=== PATIENT | female | born 1985 | race Caucasian/White ===

== ENCOUNTER 2017-11-05 19:49 | Emergency (ER) | payer MEDICAID, OTHER ==
[2017-11-05] MEDS ORDERED: IBUPROFEN 800 MG TABLET PO ONE (20:38)
[2017-11-05] MEDS ORDERED: HYDROCODONE/ACETAMINOPHEN 5-325 MG (6 TAB/ER DISP) PO PRN (20:42)
--- NOTE | 2017-11-05 20:45 | ER Document Report ---
HPI - HPI Patient complains to provider of: Left knee pain Onset: Last week Onset/Duration: Persistent Quality of pain: Achy Pain Level: 4 Context: Patient presents complaining of left knee pain for the past week that worsened this evening. Patient denies any injury to the knee. Patient denies any fever. Patient states she has had similar episode in the past and when she was diagnosed with low vitamin D. Patient denies any recent illness Associated Symptoms: Other - Left knee pain. denies: Fever Exacerbated by: Movement, Walking Relieved by: Denies Similar symptoms previously: Yes Recently seen / treated by doctor: No - ROS ROS below otherwise negative: Yes Systems Reviewed and Negative: Yes All other systems reviewed and negative - CONSTITUTIONAL Constitutional: DENIES: Fever, Chills - EENT EENT: DENIES: Sore Throat, Ear Pain, Eye problems - NEURO Neurology: DENIES: Headache, Weakness, Vision blurred, Dizzinesss / Vertigo - CARDIOVASCULAR Cardiovascular: DENIES: Chest pain - RESPIRATORY Respiratory: DENIES: Trouble Breathing, Coughing - GASTROINTESTINAL Gastrointestinal: DENIES: Abdominal Pain, Black / Bloody Stools - URINARY Urinary: DENIES: Dysuria, Urgency, Frequency - MUSCULOSKELETAL Musculoskeletal: REPORTS: Extremity pain - left knee. DENIES: Back Pain, Neck Pain - DERM Skin Color: Normal Skin Problems: None Past Medical History - General Information source: Patient - Social History Smoking Status: Never Smoker Frequency of alcohol use: None Drug Abuse: None Occupation: D[facility] [employer] Family History: Reviewed & Not Pertinent Patient has suicidal ideation: No Patient has homicidal ideation: No Renal/ Medical History: Denies: Hx Peritoneal Dialysis GI Medical History: Reports: Hx Crohn's Disease Past Surgical History: Reports: Hx Adenoidectomy, Hx Tonsillectomy Vertical Provider Document - CONSTITUTIONAL Agree With Documented VS: Yes Exam Limitations: No Limitations General Appearance: WD/WN, No Apparent Distress - INFECTION CONTROL TRAVEL OUTSIDE OF THE [place] IN LAST 30 DAYS: No - HEENT HEENT: Atraumatic, Normocephalic - NECK Neck: Normal Inspection, Supple - RESPIRATORY Respiratory: Breath Sounds Normal, No Respiratory Distress - CARDIOVASCULAR Cardiovascular: Regular Rate, Regular Rhythm, No Murmur Pulses: Normal: Dorsalis pedis - MUSCULOSKELETAL/EXTREMETIES Musculoskeletal/Extremeties: MAEW, FROM, Tender - Left knee joint tenderness to lateral and medial inferior compartment, no effusion, normal skin color and temperature. Patellar tendon intact. No laxity with varus or valgus maneuvers. - NEURO Level of Consciousness: Awake, Alert, Appropriate Motor/Sensory: No Motor Deficit - DERM Integumentary: Warm, Dry Course - Re-evaluation Re-evalutation: 11/05/17 20:43 Patient with left knee joint tenderness without trauma. Patient states she has had something similar in the past when she was told that she had a vitamin D deficiency. Patient does take Humira in presents without any findings concerning for infection at this time. Patient encouraged to follow-up with her primary doctor for further evaluation. Consulted with Dr. Allen who agrees with this plan of care. - Vital Signs Vital signs: Temp Pulse Resp BP Pulse Ox 97.7 F 89 20 129/79 H 100 11/05/17 19:55 11/05/17 19:55 11/05/17 19:55 11/05/17 19:55 11/05/17 19:55 Procedures - Immobilization Left Knee Pre-Proc Neuro Vasc Exam: Normal Immobilizer type: Matheus wrap Performed by: PCT Post-Proc Neuro Vasc Exam: Normal Alignment checked and good: Yes Discharge - Discharge Clinical Impression: Left knee pain Qualifiers: Chronicity: unspecified Qualified Code(s): M25.562 - Pain in left knee Condition: Stable Disposition: HOME, SELF-CARE Instructions: Matheus Wrap ([facility]), Anti-Inflammatory Medication ([facility]), Arthritis ( [facility]), Use of Crutches ([facility]), Oral Narcotic Medication ([facility]) Additional Instructions: Return immediately for any new or worsening symptoms Followup with your primary care provider, call tomorrow to make a followup appointment Weightbearing as tolerated Follow-up with orthopedic doctor for any continued pain or problems Prescriptions: Hydrocodone/Acetaminophen [[place] 5-325 Tablet] 1 each PO Q6 PRN #10 tablet PRN Reason: Naproxen [Naprosyn 250 Nmg Tablet] 1 tab PO BID #14 tablet Referrals: [facility] [Provider Group] - Follow up as needed [facility] [Provider Group] - Follow up as needed
[2017-11-05] MEDS ORDERED: KETOROLAC TROMETHAMINE 60 MG/2 ML SDV IM ONE (21:01)
[2017-11-05 21:36] VITALS: BP 112/73
== END 2017-11-05 21:36 | disposition home or self-care (01) ==
LOC: ER 19:49
DX: M25.562 Pain in left knee (principal); K50.90 Crohn's disease, unspecified, without complications; Z79.899 Other long term (current) drug therapy
CPT/HCPCS: 99283; 96372; J1885

== ENCOUNTER 2017-11-25 | Emergency (ER) | payer OTHER ==
--- NOTE | 2017-11-26 02:50 | ER Document Report ---
Doctor's Note Notes: 11/26/17 02:49 I did not see or provide care to this patient. She left without being seen by provider before I could get back to the room to assess her.
== END 2017-11-25 21:49 | disposition left against medical advice (07) ==
DX: Z53.21 Procedure and treatment not carried out due to patient leaving prior to being seen by health care provider (principal)

== ENCOUNTER 2017-12-01 19:08 | Emergency (ER) | payer OTHER ==
--- NOTE | 2017-12-01 20:34 | ER Document Report ---
ED Medical Screen (RME) - General Chief Complaint: Abdominal Pain Stated Complaint: ABDOMINAL PAIN Time Seen by Provider: 12/01/17 20:21 Notes: RAPID MEDICAL EVALUATION DISCLOSURE I have seen this patient as part of a Rapid Medical Evaluation and, if applicable, placed any initially appropriate orders. The patient will be seen and fully evaluated, including a full history and physical exam, by a provider ( in Main ED or Fast Track) when a room becomes available. 32-year-old female PMH Crohn's disease on Humira and approximately 6 weeks gestation here with complaints of lower abdominal cramping nausea vomiting diarrhea that started just prior to arrival after eating some Sub sandwiches and eating and oatmeal cookie. She received 4 mg Zofran by EMS and feels better. The cramping is much better now than it was initially. She has not yet had an ultrasound confirmation of . EXAM No appreciable abdominal tenderness TRAVEL OUTSIDE OF THE [place] IN LAST 30 DAYS: No - Related Data Allergies/Adverse Reactions: buspirone [Buspirone] Allergy (Verified 05/28/16 10:56) citalopram hydrobromide [From Celexa] Allergy (Verified 05/28/16 10:56) latex Allergy (Verified 05/28/16 10:56) Past Medical History - Social History Frequency of alcohol use: None Renal/ Medical History: Denies: Hx Peritoneal Dialysis GI Medical History: Reports: Hx Crohn's Disease Past Surgical History: Reports: Hx Adenoidectomy, Hx Tonsillectomy Physical Exam - Vital signs Vitals: Temp Pulse Resp BP Pulse Ox 97.6 F 94 20 133/82 H 100 12/01/17 19:22 12/01/17 19:22 12/01/17 19:22 12/01/17 19:12/01/17 19:22 Course - Vital Signs Vital signs: Temp Pulse Resp BP Pulse Ox 97.6 F 94 20 133/82 H 100 12/01/17 19:22 12/01/17 19:22 12/01/17 19:22 12/01/17 19:22 12/01/17 19:22
[2017-12-01 21:08] LABS: ABSOLUTE LYMPHOCYTES (AUTO) 2.4 10^3/uL (0.5-4.7); ABSOLUTE MONOCYTES (AUTO) 0.6 10^3/uL (0.1-1.4); ABSOLUTE NEUT (AUTO) 5.9 10^3/uL (1.7-8.2); BASOPHILS % (AUTO) 0.4 % (0-2); EOSINOPHILS % (AUTO) 0.5 % (0-6); HEMATOCRIT 36.9 % (36.0-47.0); LYMPHOCYTES % (AUTO) 26.7 % (13-45); MEAN CORPUSCULAR HGB CONC 32.5 g/dL (32.0-36.0); MEAN CORPUSCULAR VOLUME 83 fl (80-97); MONOCYTES % (AUTO) 6.5 % (3-13); PLATELET COUNT 353 10^3/uL (150-450); RED BLOOD COUNT 4.45 10^6/uL (3.72-5.28); RED CELL DISTRIBUTION WIDTH 15.7 % (11.5-14.0); SEGMENTED NEUTROPHILS % (AUTO) 65.9 % (42-78); TOTAL CELLS COUNTED % (AUTO) 100 %; WHITE BLOOD COUNT 8.9 10^3/uL (4.0-10.5)
[2017-12-01 21:21] LABS: ALANINE AMINOTRANSFERASE 110 U/L (9-52); ALBUMIN 4.4 g/dL (3.5-5.0); ALKALINE PHOSPHATASE 94 U/L (38-126); ANION GAP 13 (5-19); ASPARTATE AMINO TRANSFERASE 80 U/L (14-36); BILIRUBIN,DIRECT 0.2 mg/dL (0.0-0.4); BILIRUBIN,TOTAL 0.2 mg/dL (0.2-1.3); BLOOD UREA NITROGEN 10 mg/dL (7-20); CALCIUM 9.8 mg/dL (8.4-10.2); CARBON DIOXIDE 24 mmol/L (22-30); CHLORIDE 105 mmol/L (98-107); GLUCOSE 147 mg/dL (75-110); LIPASE 144.8 U/L (23-300); SODIUM 142.4 mmol/L (137-145); TOTAL PROTEIN 7.6 g/dL (6.3-8.2)
--- NOTE | 2017-12-01 22:11 | RADIOLOGY REPORT (SQ) ---
EXAM DESCRIPTION: U/S OB TRANSVAGINAL W/O DOP COMPLETED DATE/TIME: 12/01/2017 9:53 pm REASON FOR STUDY: lower abd pain n/v, 6 wk preg COMPARISON: None. TECHNIQUE: Transvaginal static and realtime grayscale images acquired of the pelvis. Additional dalila cted spectral and color Doppler images recorded. All images stored on PACs. bHC,112 LIMITATIONS: Patient terminated study. FINDINGS: UTERUS: No masses. No anomalies. GESTATIONAL SAC: There are apparently 2 gestational sacs present. Sacsa: 5 weeks 2 days. Sac B: 5 weeks 3 days. Possibly bicornuate uterus. YOLK SAC: No POLE: No RIGHT ADNEXA: Ovary not identified. No adnexal free fluid. 2.2 cm presumed right ovarian cyst. LEFT ADNEXA: Ovary not identified. No adnexal free fluid. No adnexal masses. FREE FLUID: None. OTHER: No other significant finding. 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 Limited study as patient terminated it. BHCG LEVEL APPROPRIATE FOR ENDOMETRIAL FINDINGS. Consider follow-up ultrasound for further clarification. Right ovarian cysts. Trimester of : First - 0 to 13 weeks. TECHNICAL DOCUMENTATION: JOB ID: [id number] [employer]- All Rights Reserved Reading location - IP/workstation name: [email or web address]
[2017-12-01] MEDS ORDERED: NORMAL SALINE 1000 ML 1,000 ML IV ONE (22:14)
--- NOTE | 2017-12-01 23:22 | ER Document Report ---
ED General - General Chief Complaint: Abdominal Pain Stated Complaint: ABDOMINAL PAIN Time Seen by Provider: 12/01/17 20:21 Notes: Patient is a 32-year-old female presents with complaints of some cramping in lower abdomen. She says this occurred after eating. She got nauseous. She is concerned she has a history of Crohn's will make sure that the abdominal cramping was related to that. She said this is actually improved and her nausea is gone of Zofran. She denies any vomiting of blood. She denies any bloody stools. She is on Humira for her Crohn's. She has not yet had an ultrasound since becoming . She is approximately 5 weeks . This is her second . Her first ended in a stillborn miscarriage at 38 weeks. He says she has had a small amount of whitish vaginal discharge. No vaginal bleeding. TRAVEL OUTSIDE OF THE [place] IN LAST 30 DAYS: No - Related Data Allergies/Adverse Reactions: buspirone [Buspirone] Allergy (Verified 05/28/16 10:56) citalopram hydrobromide [From Celexa] Allergy (Verified 05/28/16 10:56) latex Allergy (Verified 05/28/16 10:56) Past Medical History - Social History Smoking Status: Never Smoker Frequency of alcohol use: None Drug Abuse: None Family History: Reviewed & Not Pertinent Patient has suicidal ideation: No Patient has homicidal ideation: No Renal/ Medical History: Denies: Hx Peritoneal Dialysis GI Medical History: Reports: Hx Crohn's Disease Past Surgical History: Reports: Hx Adenoidectomy, Hx Tonsillectomy Review of Systems - Review of Systems Notes: My Normal Review Basic REVIEW OF SYSTEMS: CONSTITUTIONAL : Denies fever, chills, or sweats. Denies recent illness. EENT: Denies eye, ear, throat, or mouth pain or symptoms. Denies nasal or sinus congestion. RESPIRATORY: Denies cough, cold, or chest congestion. Denies shortness of breath, difficulty breathing, or wheezing. GASTROINTESTINAL: Lower abdomen and pelvic cramping. Nausea vomiting GENITOURINARY: Denies difficulty urinating, painful urination, burning, frequency, or blood in urine. FEMALE GENITOURINARY: Denies vaginal bleeding, abnormal or irregular periods. LMP: Currently MUSCULOSKELETAL: Denies neck or back pain or joint pain or swelling. SKIN: Denies rash or skin lesions. NEUROLOGICAL: Denies altered mental status or loss of consciousness. Denies headache. Denies weakness or paralysis or loss of use of either side. Denies problems with gait or speech. Denies sensory or motor loss. ALL OTHER SYSTEMS REVIEWED AND NEGATIVE. Physical Exam - Vital signs Vitals: Temp Pulse Resp BP Pulse Ox 97.6 F 94 20 133/82 H 100 12/01/17 19:22 12/01/17 19:22 12/01/17 19:22 12/01/17 19:22 12/01/17 19:22 - Notes Notes: General Appearance: Well nourished, alert, cooperative, no acute distress, no obvious discomfort. Well-appearing. Vitals: reviewed, See vital signs table. Head: no swelling or tenderness to the head Eyes: PERRL, EOMI, Conjuctiva clear Mouth: No decreasd moisture Neck: Supple, no neck tenderness, No thyromegaly Lungs: No wheezing, No rales, No rhonci, No accessory muscle use, good air exchange bilaterally. Heart: Normal rate, Regular rythm, No murmur, no rub Abdomen: Normal BS, soft, No rigidity, mild suprapubic abdominal tenderness to palpation, No guarding, no rebound, no abdominal masses, no organomegaly Pelvic exam: Pelvic exam was performed with female wildland fire fighter specialist Gail CRUZ. Exam showed normal external genitalia. No abnormal vaginal discharge. Blood in vaginal vault. Cervical office is closed. Extremities: strength 5/5 in all extremities, good pulses in all extremities, no swelling or tenderness in the extremities, no edema. Skin: warm, dry, appropriate color, no rash Neuro: speech clear, oriented x 3, normal affect, responds appropriately to questions. Course - Re-evaluation Re-evalutation: 12/02/17 00:00 Patient is feeling much improved. I do not suspect that her symptoms today are related to Crohn's flare being that she did not have recurrent diarrhea, her nausea is well controlled, and she does not have any blood in her stool. She looks and feels much improved. She did undergo an ultrasound which showed 2 gestational sacs. 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 I did review these findings with the patient. Informed patient that we do not yet see feel pulse and the patient does have repeat ultrasound on Tuesday. At that time this will be rechecked. Her hCG level is increasing. There is a last week it was just over 2000 per her report. Do not see evidence of pelvic infection. Urinalysis is negative. I did talk to the patient about nausea medications. She does have likely just at home. She does also want Zofran. I did discuss with her the risks and benefits Zofran did discuss with her the study that showed that it could be iatrogenic if given in the first trimester and talked her about this. Patient shows understanding of this and understands it is one study that shows this but still would like a prescription for it in case the Baldo does not taking care of her nausea. Patient will be discharged home was encouraged to return to immediately if she has any vaginal bleeding, abnormal vaginal discharge, recurrent pain, intractable vomiting, fevers, or worsening abdominal pain, or she feels unwell. Patient agrees with plan will be discharged home. Dictation of this chart was performed using voice recognition software; therefore, there may be some unintended grammatical errors. - Vital Signs Vital signs: Temp Pulse Resp BP Pulse Ox 97.6 F 94 20 118/76 94 12/01/17 19:22 12/01/17 19:22 12/01/17 19:22 12/01/17 22:01 12/01/17 22:01 - Laboratory Result Diagrams: 12/01/17 18:45 12/01/17 18:45 Laboratory results interpreted by me: 12/01/17 12/01/17 12/01/17 18:45 18:45 23:18 RDW 15.7 H Glucose 147 H AST 80 H ALT 110 H Beta HCG, Quant 18484.00 H Urine Ketones 20 H Urine Urobilinogen 2.0 H Discharge - Discharge Clinical Impression: Nausea Abdominal pain Qualifiers: Abdominal location: unspecified location Qualified Code(s): R10.9 - Unspecified abdominal pain Condition: Good Disposition: HOME, SELF-CARE Additional Instructions: Your ultrasound shows that you possibly have twins. He also have a bicornuate uterus. Please follow-up with your OB doctor on Tuesday as scheduled for reevaluation and your ultrasound. Please return to the ER immediately if you have recurrent vomiting, vaginal bleeding, worsening abdominal pain, feves, or if you feel unwell. Prescriptions: Ondansetron [Zofran Odt 4 mg Tablet] 1 tab PO Q4H PRN #15 tab.rapdis PRN Reason: For Nausea/Vomiting
[2017-12-01 23:37] LABS: T.VAGINALIS (WET MOUNT) NO TRICHOMONAS SEEN; WBCS (WET MOUNT) RARE WBCS SEEN; YEAST (WET MOUNT) NO YEAST SEEN
[2017-12-01 23:46] LABS: APPEARANCE,URINE CLEAR; BILIRUBIN,URINE NEGATIVE (NEGATIVE); COLOR,URINE YELLOW; GLUCOSE, URINE NEGATIVE (NEGATIVE); KETONES,URINE 20 mg/dL (NEGATIVE); LEUKOCYTE ESTERASE,URINE NEGATIVE (NEGATIVE); NITRITE,URINE NEGATIVE (NEGATIVE); PROTEIN,URINE NEGATIVE (NEGATIVE); URINE SPECIFIC GRAVITY 1.021
[2017-12-02 00:24] VITALS: BP 123/82
[2017-12-02 01:00] LABS: CHLAM PCR NOT DETECTED (NOT DETECT); GON PCR NOT DETECTED (NOT DETECT)
== END 2017-12-02 00:24 | disposition home or self-care (01) ==
LOC: ER 19:08
DX: O99.619 Diseases of the digestive system complicating pregnancy, unspecified trimester (principal); K50.90 Crohn's disease, unspecified, without complications; Z79.899 Other long term (current) drug therapy; O26.899 Other specified pregnancy related conditions, unspecified trimester; R10.2 Pelvic and perineal pain; R11.0 Nausea; O34.00 Maternal care for unspecified congenital malformation of uterus, unspecified trimester; Q51.3 Bicornate uterus; Z3A.00 Weeks of gestation of pregnancy not specified; Z87.59 Personal history of other complications of pregnancy, childbirth and the puerperium; Z88.8 Allergy status to other drugs, medicaments and biological substances; Z91.040 Latex allergy status
CPT/HCPCS: 99284; 96360; 86900; 86901; 36415; 87210; 84702; 83690; 85025; 80053; 81001; 87491; 87591; 76817; J7030

== ENCOUNTER 2017-12-12 20:54 | Emergency (ER) | payer OTHER, MEDICAID ==
[2017-12-12] MEDS ORDERED: RINGERS SOLUTION,LACTATED 1,000 ML IV ONE (21:26)
[2017-12-12] MEDS ORDERED: ONDANSETRON HCL INJ/PF 4 MG/2 ML SDV IV ONE (21:26)
[2017-12-12] MEDS ORDERED: METOCLOPRAMIDE HCL INJ/PF 10 MG/2 ML SDV IV ONE (22:01)
[2017-12-12 22:10] LABS: ABSOLUTE BASOPHILS # (AUTO) 0.1 10^3/uL (0.0-0.2); ABSOLUTE LYMPHOCYTES (AUTO) 2.8 10^3/uL (0.5-4.7); ABSOLUTE MONOCYTES (AUTO) 0.8 10^3/uL (0.1-1.4); ABSOLUTE NEUT (AUTO) 7.3 10^3/uL (1.7-8.2); BASOPHILS % (AUTO) 0.9 % (0-2); EOSINOPHILS % (AUTO) 0.4 % (0-6); HEMOGLOBIN 12.9 g/dL (12.0-15.5); MEAN CORPUSCULAR HEMOGLOBIN 27.4 pg (27.0-33.4); MEAN CORPUSCULAR HGB CONC 32.9 g/dL (32.0-36.0); MEAN CORPUSCULAR VOLUME 83 fl (80-97); MONOCYTES % (AUTO) 7.6 % (3-13); PLATELET COUNT 399 10^3/uL (150-450); RED BLOOD COUNT 4.69 10^6/uL (3.72-5.28); SEGMENTED NEUTROPHILS % (AUTO) 66.1 % (42-78); TOTAL CELLS COUNTED % (AUTO) 100 %
[2017-12-12 22:28] LABS: ALANINE AMINOTRANSFERASE 72 U/L (9-52); ALBUMIN 4.7 g/dL (3.5-5.0); ALKALINE PHOSPHATASE 111 U/L (38-126); ANION GAP 13 (5-19); ASPARTATE AMINO TRANSFERASE 54 U/L (14-36); BILIRUBIN,DIRECT 0.4 mg/dL (0.0-0.4); BILIRUBIN,TOTAL 0.4 mg/dL (0.2-1.3); BLOOD UREA NITROGEN 11 mg/dL (7-20); CALCIUM 10.3 mg/dL (8.4-10.2); CARBON DIOXIDE 24 mmol/L (22-30); CHLORIDE 103 mmol/L (98-107); GLUCOSE 78 mg/dL (75-110); LIPASE 127.4 U/L (23-300); POTASSIUM 4.2 mmol/L (3.6-5.0); SODIUM 139.8 mmol/L (137-145)
--- NOTE | 2017-12-12 22:55 | ER Document Report ---
ED General - General Chief Complaint: Nausea/Vomiting Stated Complaint: VOMITING/NAUSEA Time Seen by Provider: 12/12/17 21:24 Notes: Currently 7 weeks with twin who presents with persistent vomiting and inability to tolerate fluids. The patient states that she is worried she is getting dehydrated. She states that the symptoms been ongoing for the past 1 week. Nothing seems to improve or worsen her symptoms. She denies a history of similar symptoms. She has established care for this and has confirmed intrauterine twin on an outpatient ultrasound. She denies any vaginal bleeding, vaginal discharge, abdominal pain , shortness of breath, chest pain or fever. She has not discussed her persistent vomiting with her PHOTO MASK PATTERN GENERATOR. TRAVEL OUTSIDE OF THE [place] IN LAST 30 DAYS: No - Related Data Allergies/Adverse Reactions: buspirone [Buspirone] Allergy (Verified 05/28/16 10:56) citalopram hydrobromide [From Celexa] Allergy (Verified 05/28/16 10:56) latex Allergy (Verified 05/28/16 10:56) Past Medical History - General Information source: Patient - Social History Smoking Status: Never Smoker Chew tobacco use (# tins/day): No Frequency of alcohol use: None Drug Abuse: None Lives with: Spouse/Significant other Family History: Reviewed & Not Pertinent Patient has suicidal ideation: No Patient has homicidal ideation: No Renal/ Medical History: Denies: Hx Peritoneal Dialysis GI Medical History: Reports: Hx Crohn's Disease Past Surgical History: Reports: Hx Adenoidectomy, Hx Tonsillectomy Review of Systems - Review of Systems Notes: Constitutional: Negative for fever. HENT: Negative for sore throat. Eyes: Negative for visual changes. Cardiovascular: Negative for chest pain. Respiratory: Negative for shortness of breath. Gastrointestinal: Positive for nausea and vomiting Genitourinary: Negative for dysuria. Musculoskeletal: Negative for back pain. Skin: Negative for rash. Neurological: Negative for headaches, weakness or numbness. 10 point ROS negative except as marked above and in HPI. Physical Exam - Vital signs Vitals: Temp Pulse Resp BP Pulse Ox 97.9 F 93 20 121/73 100 12/12/17 21:21 12/12/17 21:21 12/12/17 21:21 12/12/17 21:21 12/12/17 21:21 Interpretation: Normal Notes: PHYSICAL EXAMINATION: GENERAL: Well-appearing, well-nourished and in no acute distress. HEAD: Atraumatic, normocephalic. EYES: Pupils equal round and reactive to light, extraocular movements intact, sclera anicteric, conjunctiva are normal. ENT: nares patent, oropharynx clear without exudates. Moderately dry mucous membranes. NECK: Normal range of motion, supple without lymphadenopathy LUNGS: Breath sounds clear to auscultation bilaterally and equal. No wheezes rales or rhonchi. HEART: Regular rate and rhythm without murmurs ABDOMEN: Soft, nontender, normoactive bowel sounds. No guarding, no rebound. No masses appreciated. EXTREMITIES: Normal range of motion, no pitting or edema. No cyanosis. NEUROLOGICAL: No focal neurological deficits. Moves all extremities spontaneously and on command. PSYCH: Normal mood, normal affect. SKIN: Warm, Dry, normal turgor, no rashes or lesions noted. Course - Re-evaluation Re-evalutation: 12/12/17 22:55 Patient presents with persistent vomiting during . Vitals at time of arrival unremarkable without tachycardia or hypotension. Laboratories reveal a normal creatinine and no evidence of significant dehydration. Patient was able to tolerate oral intake here in the emergency department. IV fluids were provided. Bedside ultrasound shows appropriate heart rate for gestational age with active movement. No vaginal bleeding or discharge. Based on abdominal exam, vitals and history I do not suspect an acute appendicitis, cholestasis of , acute cholecystitis, pancreatitis, or bowel obstruction. Patient will be started on a combination of doxylamine and vitamin B6. At this time will discharge with return precautions and follow-up recommendations. Verbal discharge instructions given a the bedside and opportunity for questions given. Medication warnings reviewed. Patient is in agreement with this plan and has verbalized understanding of return precautions and the need for primary care follow-up in the next 24-72 hours. - Vital Signs Vital signs: Temp Pulse Resp BP Pulse Ox 98.2 F 93 15 110/71 100 12/12/17 23:01 12/12/17 21:21 12/12/17 23:01 12/12/17 23:00 12/12/17 23:01 - Laboratory Result Diagrams: 12/12/17 21:50 12/12/17 21:50 Laboratory results interpreted by me: 12/12/17 12/12/17 21:50 21:50 WBC 11.0 H RDW 15.0 H Calcium 10.3 H AST 54 H ALT 72 H Beta HCG, Quant 615917.00 H Discharge - Discharge Clinical Impression: Vomiting during , Dehydration Condition: Good Disposition: HOME, SELF-CARE Additional Instructions: You have been seen for vomiting during . You should continue to drink plenty of water and consider taking a solution such as Pedialyte if your having difficulty eating food. Please return if you become unable to drink any fluids for more than 12 hours, urinate less than twice a day, pass out, or have any other symptoms that are concerning to you. For nausea and vomiting during I recommend: Start with 10-12.5 mg of pyridoxine (vitamin B6) three times a day for 2 days. If not fully effective, Increase to 12.5 mg of pyridoxine four times a day for 2 days. If not fully effective, Increase to 25 mg of pyridoxine three times a day for 2 days. If not fully effective, Continue 25 mg pyridoxine 3 times a day, and add 12.5 mg of doxylamine before bedtime each day for 2 days. If not fully effective, Continue 25 mg pyridoxine 3 times a day, and take 12.5 mg of doxylamine twice a day. If not fully effective, Continue 25 mg pyridoxine 3 times a day, and take 12.5 mg of doxylamine three times a day. If not fully effective, Continue 25 mg pyridoxine 3 times a day, and 12.5 mg of doxylamine 3 times a day , while adding Emetrol, one to two tablespoons (15-30 cc) taken once or twice a day as needed. (Emetrol is an [id number] mixture of sugar syrups and phosphoric acid [phosphorylated carbohydrate solution]) that acts by soothing the actual wall of the gastrointestinal tract). If not fully effective, Consult with your doctor. Referrals: LYNDA VEGA MD [Primary Care Provider] - Follow up as needed
[2017-12-13 02:00] VITALS: BP 110/71
== END 2017-12-12 23:10 | disposition home or self-care (01) ==
LOC: ER 20:54
DX: O21.9 Vomiting of pregnancy, unspecified (principal); O30.001 Twin pregnancy, unspecified number of placenta and unspecified number of amniotic sacs, first trimester; O26.891 Other specified pregnancy related conditions, first trimester; E86.0 Dehydration; Z3A.01 Less than 8 weeks gestation of pregnancy
CPT/HCPCS: 99284; 96361; 96374; 36415; 84702; 83690; 85025; 80053; J2765; J7120

== ENCOUNTER 2017-12-19 11:31 | Emergency (ER) | payer OTHER, MEDICAID ==
[2017-12-19] MEDS ORDERED: ONDANSETRON 4 MG TAB.RAPDIS PO ONE (12:12)
[2017-12-19] MEDS ORDERED: NORMAL SALINE 1000 ML 1,000 ML IV ONE (12:20)
--- NOTE | 2017-12-19 12:20 | ER Document Report ---
ED Medical Screen (RME) - General Chief Complaint: Abdominal Cramping Stated Complaint: LOWER ABDOMINAL CRAMPING Time Seen by Provider: 12/19/17 12:11 Mode of Arrival: Ambulatory Information source: Patient Notes: Pt is a 32 year old female approximately 8 weeks with twins who presents to the ER today for abd cramping into her back and lower abd with nausea/vomiting. She states she's lightheaded and hasn't been able to keep anything down. Is taking phenergan. TRAVEL OUTSIDE OF THE [place] IN LAST 30 DAYS: No - Related Data Allergies/Adverse Reactions: buspirone [Buspirone] Allergy (Verified 12/19/17 11:33) citalopram hydrobromide [From Celexa] Allergy (Verified 12/19/17 11:33) latex Allergy (Verified 12/19/17 11:33) metoclopramide [From Reglan] Adverse Reaction (Verified 12/19/17 11:33) Past Medical History - General Information source: Patient Renal/ Medical History: Denies: Hx Peritoneal Dialysis GI Medical History: Reports: Hx Crohn's Disease Past Surgical History: Reports: Hx Adenoidectomy, Hx Tonsillectomy Review of Systems - Review of Systems Gastrointestinal: See HPI Physical Exam - Vital signs Vitals: Temp Pulse Resp BP Pulse Ox 97.9 F 90 20 122/71 100 12/19/17 11:39 12/19/17 11:39 12/19/17 11:39 12/19/17 11:39 12/19/17 11:39 - Notes Notes: General: NAD Abd: mild diffuse tenderness to lower abdomen Course - Vital Signs Vital signs: Temp Pulse Resp BP Pulse Ox 97.9 F 90 20 122/71 100 12/19/17 11:39 12/19/17 11:39 12/19/17 11:39 12/19/17 11:39 12/19/17 11:39 Doctor's Discharge - Discharge Referrals: LYNDA VEGA MD [Primary Care Provider] - Follow up as needed
[2017-12-19 14:41] LABS: ABSOLUTE BASOPHILS # (AUTO) 0.1 10^3/uL (0.0-0.2); ABSOLUTE LYMPHOCYTES (AUTO) 2.5 10^3/uL (0.5-4.7); ABSOLUTE MONOCYTES (AUTO) 0.7 10^3/uL (0.1-1.4); ABSOLUTE NEUT (AUTO) 7.6 10^3/uL (1.7-8.2); BASOPHILS % (AUTO) 0.7 % (0-2); EOSINOPHILS % (AUTO) 0.4 % (0-6); HEMATOCRIT 38.8 % (36.0-47.0); LYMPHOCYTES % (AUTO) 22.7 % (13-45); MEAN CORPUSCULAR HEMOGLOBIN 27.7 pg (27.0-33.4); MEAN CORPUSCULAR HGB CONC 33.5 g/dL (32.0-36.0); MEAN CORPUSCULAR VOLUME 83 fl (80-97); MONOCYTES % (AUTO) 6.6 % (3-13); PLATELET COUNT 394 10^3/uL (150-450); RED CELL DISTRIBUTION WIDTH 14.6 % (11.5-14.0); SEGMENTED NEUTROPHILS % (AUTO) 69.6 % (42-78); TOTAL CELLS COUNTED % (AUTO) 100 %; WHITE BLOOD COUNT 10.9 10^3/uL (4.0-10.5)
[2017-12-19 14:53] LABS: APPEARANCE,URINE CLOUDY; BILIRUBIN,URINE NEGATIVE (NEGATIVE); COLOR,URINE YELLOW; GLUCOSE, URINE NEGATIVE (NEGATIVE); KETONES,URINE NEGATIVE (NEGATIVE); LEUKOCYTE ESTERASE,URINE MODERATE (NEGATIVE); NITRITE,URINE NEGATIVE (NEGATIVE); PROTEIN,URINE NEGATIVE (NEGATIVE); URINE SPECIFIC GRAVITY 1.023; UROBILINOGEN,URINE NEGATIVE mg/dL (<2.0)
[2017-12-19 14:57] LABS: ALANINE AMINOTRANSFERASE 44 U/L (9-52); ALBUMIN 4.6 g/dL (3.5-5.0); ALKALINE PHOSPHATASE 97 U/L (38-126); ANION GAP 13 (5-19); ASPARTATE AMINO TRANSFERASE 30 U/L (14-36); BILIRUBIN,DIRECT 0.2 mg/dL (0.0-0.4); BILIRUBIN,TOTAL 0.2 mg/dL (0.2-1.3); BLOOD UREA NITROGEN 9 mg/dL (7-20); CALCIUM 10.3 mg/dL (8.4-10.2); CARBON DIOXIDE 24 mmol/L (22-30); CHLORIDE 104 mmol/L (98-107); GLUCOSE 78 mg/dL (75-110); POTASSIUM 3.8 mmol/L (3.6-5.0); TOTAL PROTEIN 8.1 g/dL (6.3-8.2)
--- NOTE | 2017-12-19 15:03 | RADIOLOGY REPORT (SQ) ---
EXAM DESCRIPTION: U/S 819[address] + EACH ADDIT GEST COMPLETE DATE/TIME: 12/19/2017 2:43 pm REASON FOR STUDY: ABD CRAMPING, N/V FINDINGS: Please see combined report for performance of procedure and radiologic supervision and int erpretation. IMPRESSION: Please see combined report for performance of procedure and radiologic supervision and i nterpretation. Reading location - IP/workstation name: [email or web address]
--- NOTE | 2017-12-19 15:03 | RADIOLOGY REPORT (SQ) ---
EXAM DESCRIPTION: U/S [id number] TRNABD 1GES W/ODOP COMPLETED DATE/TIME: 12/19/2017 2:43 pm REASON FOR STUDY: abd cramping, n/v/ twin gestation COMPARISON: 12/01/2017 TECHNIQUE: Transvaginal and transabdominal static and realtime grayscale images acquired of the pelv is. Additional selected spectral and color Doppler images recorded. All images stored on PACs. bHCG: Not applicable CLINICAL DATES: 11 weeks 1 day LIMITATIONS: None. FINDINGS: FETUS: Living intrauterine twin . ULTRASOUND EGA: Twin A: 8 weeks 1 day. Twin Bi: 7 weeks 6 days ULTRASOUND LARRY: 08/01/2017 CRL: Twin A 1.67 cm. Twin B 1.46 cm FHR: Twin A 149 beats per minute. Twin B: 152 beats per minute. SUBCHORIONIC BLEED: No SIZE OF BLEED: Not applicable. UTERUS: No masses. No anomalies. CERVICAL LENGTH: 2.9 cm. Closed. RIGHT ADNEXA: Not visualized. No adnexal free fluid. The previously demonstrated right ovarian cyst is not visualized on the current study. LEFT ADNEXA: The left ovary measures 3.4 x 3.8 x 3.5 cm. Normal vascular flow. No adnexal free fluid. A 2.6 x 3.0 x 2.7 cm cyst. FREE FLUID: None. OTHER: No other significant finding. IMPRESSION: LIVING INTRAUTERINE TWIN . EGA 8 WEEKS 1 DAY LEFT OVARIAN CYST. PREVIOUSLY DEMONSTRATED RIGHT OVARIAN CYST IS NOT VISUALIZED. Trimester of : First - 0 to 13 weeks. TECHNICAL DOCUMENTATION: JOB ID: [id number] [employer]- All Rights Reserved rev Reading location - IP/workstation name: [email or web address]
[2017-12-19] MEDS ORDERED: CEFTRIAXONE 1 GM/D5W RTU 1 GM/50 ML RTUPB IV ONE (15:39)
--- NOTE | 2017-12-19 16:12 | ER Document Report ---
ED General - General Chief Complaint: Abdominal Cramping Stated Complaint: LOWER ABDOMINAL CRAMPING Time Seen by Provider: 12/19/17 12:11 Mode of Arrival: Ambulatory Notes: Patient says that she is 8 weeks with twins and is having nausea and vomiting and cramping. She is 2, para 0, stillborn 1. Is not having any problems with the such as vaginal bleeding or spotting, etc. She has been feeling nauseated almost every day for the past 4 weeks. She has Phenergan and it only helps a slight bit. Her LEGAL SERVICES PROFESSIONAL has advised her not to take Zofran. Patient says she has been having lower abdominal cramping for a couple of days. At this time, she has had a liter of saline and 4 mg of Zofran IV and feels much better. Denies any fever. Denies any UTI symptoms except for frequency. TRAVEL OUTSIDE OF THE [place] IN LAST 30 DAYS: No - Related Data Allergies/Adverse Reactions: buspirone [Buspirone] Allergy (Verified 12/19/17 11:33) citalopram hydrobromide [From Celexa] Allergy (Verified 12/19/17 11:33) latex Allergy (Verified 12/19/17 11:33) metoclopramide [From Reglan] Adverse Reaction (Verified 12/19/17 11:33) Past Medical History - General Information source: Patient - Social History Smoking Status: Never Smoker Chew tobacco use (# tins/day): No Frequency of alcohol use: None Drug Abuse: None Family History: Reviewed & Not Pertinent Patient has suicidal ideation: No Patient has homicidal ideation: No GI Medical History: Reports: Hx Crohn's Disease Past Surgical History: Reports: Hx Adenoidectomy, Hx Tonsillectomy Review of Systems - Review of Systems Notes: REVIEW OF SYSTEMS: CONSTITUTIONAL : Denies fever. EENT: Denies eye, ear, nose or mouth or throat pain or other symptoms. CARDIOVASCULAR: Denies chest pain. RESPIRATORY: Denies cough, chest congestion, or shortness of breath. GASTROINTESTINAL: See HPI. Has had some diarrhea which she thinks is related to her Crohn's disease. GENITOURINARY: Has frequent urination, but denies difficulty or painful urinating, blood in urine. MUSCULOSKELETAL: Denies back or neck pain. Denies joint pain or swelling. SKIN: Denies rash or skin lesions. NEUROLOGICAL: Denies LOC or altered mental status. Denies headache. Denies sensory loss or motor deficits. ALL OTHER SYSTEMS REVIEWED AND NEGATIVE. Physical Exam - Vital signs Vitals: Temp Pulse Resp BP Pulse Ox 97.9 F 90 20 122/71 100 12/19/17 11:39 12/19/17 11:39 12/19/17 11:39 12/19/17 11:39 12/19/17 11:39 Interpretation: Normal - Notes Notes: PHYSICAL EXAMINATION: GENERAL: Well-appearing, in no acute distress. Vital signs are all normal. HEAD: Atraumatic, normocephalic. EYES: Pupils equal round and reactive to light, extraocular movements intact. ENT: oropharynx clear without exudates. Moist mucous membranes. NECK: Normal range of motion, supple. LUNGS: Breath sounds clear and equal bilaterally. HEART: Regular rate and rhythm without murmurs. ABDOMEN: Soft, nontender. No guarding or rebound. No masses. Pelvic deferred as patient got an ultrasound of the pelvis. BACK: No tenderness throughout entire back. EXTREMITIES: Normal range of motion without pain. NEUROLOGICAL: Normal speech, normal gait. Normal sensory, motor, and reflex exams. Awake, alert, and oriented x3. Cranial nerves normal. PSYCH: Normal mood, normal affect. SKIN: Warm, dry, no rashes. Course - Re-evaluation Re-evalutation: 12/19/17 16:13 Patient's urinalysis is worrisome for possible UTI. She has moderate leukocyte esterase is and +1 bacteria on the dipstick. I have cultured her urine and giving her a single dose of Ceftin and I will follow-up on the culture results by Tuesday morning to determine if patient needs to be on an antibiotic for any longer than the Rocephin lasts. 12/20/17 14:40 checked urine culture which shows 30,000 to 40,000 mixed urognital leila. In this patient, that result is not considered pathologic and does not require further antibiotics thant the already given Rocephin. JG - Vital Signs Vital signs: Temp Pulse Resp BP Pulse Ox 97.7 F 82 18 117/67 100 12/19/17 16:37 12/19/17 16:37 12/19/17 16:37 12/19/17 16:37 12/19/17 16:37 - Laboratory Result Diagrams: 12/19/17 13:50 12/19/17 13:50 Laboratory results interpreted by me: 12/19/17 12/19/17 12/19/17 13:50 13:50 13:50 WBC 10.9 H RDW 14.6 H Calcium 10.3 H Beta HCG, Quant 902188.00 H Ur Leukocyte Esterase MODERATE H - Diagnostic Test Radiology reviewed: Image reviewed - Ultrasound shows twin pregnancies with both pregnancies living without any complications. Discharge - Discharge Clinical Impression: Twin , Vomiting Condition: Stable Disposition: HOME, SELF-CARE Additional Instructions: You are . care is best started as early in as possible. If you're unsure about continuing this , you should discuss this with your physician or with silk screener at [facility]. You should take only medications approved by your physician. Acetaminophen can safely be taken for minor pains. As a rule, medication for chronic conditions such as asthma or seizures can safely be continued. You should discuss with the physician every medicine you take. Any regular exercise program can be continued. Talk to your physician, however, before engaging in competitive or demanding sports. Alcohol, smoking, and "street drugs" are dangerous to your baby. Cocaine is especially dangerous. Don't use any illicit drugs! VOMITING: Vomiting (or nausea without vomiting) can be caused by many other different problems. It can mean that something's wrong with the stomach, such as ulcers or inflammation or the intestinal tract, such as appendicitis. But it can also be a symptom of a problem that has nothing to do with the stomach or intestines. Vomiting is common with severe headaches, earaches, tonsillitis, and kidney infections, etc. We see it with pneumonia or heart attacks. Drugs can cause nausea and vomiting. Many abdominal problems cause vomiting; for example, gallstones, kidney stones, pancreatitis, and intestinal obstruction ( blocked bowels). In most cases, curing the vomiting depends on fixing the problem that caused it. For temporary relief, we may use an anti-nausea medicine. For home use, we can prescribe suppositories, chewable pills, pills that dissolve in the mouth, or liquid anti-nausea drugs. If the vomiting seems to be caused by a problem in the stomach, acid-suppressing drugs may be prescribed as well. It's important to avoid dehydration. Sip small amounts of clear liquids ( soft drinks, tea, broth, etc) . Try to take fluids frequently even if you are vomiting to prevent dehydration. Take increasing amounts of fluid and when liquids are being consumed successfully, advance to small amounts of bland food (toast, soups, mashed potatoes, etc.) until you are able to resume a regular diet. Avoid aspirin, tobacco, and alcohol. If the vomiting worsens, if the problem that's making you vomit worsens, or if there's evidence of bleeding in the stomach (such as black, tarry stool, or bloody or black vomit), you should return immediately. Also, return if abdominal pain worsens or becomes localized to one area or you develop high fever. Call your doctor if you aren't improved in 24 hours. INTRAVENOUS (I V) FLUIDS: As part of your care today, you received intravenous (IV) fluids. IV fluids are administered to patients who are dehydrated or to those who have certain chemical (electrolyte) abnormalities that need correcting. ANTINAUSEA MEDICATION: You have been given a medication to suppress nausea and vomiting. This type of medication can be given as a shot, pill, or suppository. It will usually last for many hours. Pills and shots usually last six to eight hours. For the typical illness, only one or two doses of the medication may be necessary. Mild lightheadedness may occur. This type of medicine can cause drowsiness. Do not drive or operate dangerous machinery while under its influence. Do not mix with alcohol. See your doctor at once if you have muscle spasms or tightness, or uncontrollable motions (particularly of the neck, mouth, or jaw). Persistent vomiting or severe lightheadedness should also be evaluated by the physician. FOLLOW-UP CARE: If you have been referred to a physician for follow-up care, call the physician s office for an appointment as you were instructed or within the next two days. If you experience worsening or a significant change in your symptoms, notify the physician immediately or return to the Emergency Department at any time for re-evaluation. Referrals: LYNDA VEGA MD [Primary Care Provider] - Follow up as needed
[2017-12-19 16:39] VITALS: BP 117/67
== END 2017-12-19 16:36 | disposition home or self-care (01) ==
LOC: ER 11:31
DX: O30.001 Twin pregnancy, unspecified number of placenta and unspecified number of amniotic sacs, first trimester (principal); O21.9 Vomiting of pregnancy, unspecified; O26.891 Other specified pregnancy related conditions, first trimester; R10.30 Lower abdominal pain, unspecified; R11.2 Nausea with vomiting, unspecified; R35.0 Frequency of micturition; Z3A.08 8 weeks gestation of pregnancy
CPT/HCPCS: 99284; 96361; 96374; 36415; 87086; 84702; 85025; 80053; 81001; 76801; 76802; S0119; J7030; J0696

== ENCOUNTER 2017-12-30 10:00 | Emergency (ER) | payer OTHER, MEDICAID ==
--- NOTE | 2017-12-30 10:15 | ER Document Report ---
ED Medical Screen (RME) - General Chief Complaint: Nausea/Vomiting Stated Complaint: ABDOMINAL CRAMPING Time Seen by Provider: 12/30/17 10:10 Mode of Arrival: Ambulatory Information source: Patient Notes: 32-year-old female history of Crohn's disease who is approximately 10 weeks with twins presents with complaints of abdominal cramping nausea vomiting. Patient notes blood in her stool. She states she has not had a flareup in approximately 4 months since being on the Humira. Patient concerned she may be dehydrated as she continues to vomit she did see Dr. Vega recently has been on Phenergan and Zofran and notes Dr. Vega told her to come in because they did not have any appointments in the office I have greeted and performed a rapid initial assessment of this patient. A comprehensive ED assessment and evaluation of the patient, analysis of test results and completion of the medical decision making process will be conducted by additional ED providers. PHYSICAL EXAMINATION: GENERAL: Well-appearing, well-nourished and in no acute distress. HEAD: Atraumatic, normocephalic. EYES: Pupils equal round extraocular movements intact, conjunctiva are normal. ENT: Nares patent NECK: Normal range of motion LUNGS: No respiratory distress Musculoskeletal: Normal range of motion NEUROLOGICAL: Normal speech, normal gait. PSYCH: Normal mood, normal affect. SKIN: Warm, Dry, normal turgor, no rashes or lesions noted. TRAVEL OUTSIDE OF THE [place] IN LAST 30 DAYS: No - Related Data Allergies/Adverse Reactions: buspirone [Buspirone] Allergy (Verified 12/19/17 11:33) citalopram hydrobromide [From Celexa] Allergy (Verified 12/19/17 11:33) latex Allergy (Verified 12/19/17 11:33) metoclopramide [From Reglan] Adverse Reaction (Verified 12/19/17 11:33) Past Medical History - Social History Chew tobacco use (# tins/day): No Frequency of alcohol use: None Drug Abuse: None Renal/ Medical History: Denies: Hx Peritoneal Dialysis GI Medical History: Reports: Hx Crohn's Disease Past Surgical History: Reports: Hx Adenoidectomy, Hx Tonsillectomy Physical Exam - Vital signs Vitals: Temp Pulse BP Pulse Ox 98.1 F 93 120/78 100 12/30/17 10:06 12/30/17 10:06 12/30/17 10:06 12/30/17 10:06 Course - Vital Signs Vital signs: Temp Pulse Resp BP Pulse Ox 98.1 F 93 120/78 100 12/30/17 10:06 12/30/17 10:06 12/30/17 10:06 12/30/17 10:06 Doctor's Discharge - Discharge Referrals: LYNDA VEGA MD [Primary Care Provider] - Follow up as needed
[2017-12-30] MEDS ORDERED: NORMAL SALINE 1000 ML 1,000 ML IV ONE (10:16)
[2017-12-30] MEDS ORDERED: PROMETHAZINE HCL INJ 50 MG/1 ML VIAL IM ONE (10:16)
[2017-12-30 11:32] LABS: AMORPHOUS SEDIMENT,URINE TRACE /HPF; APPEARANCE,URINE CLOUDY; BILIRUBIN,URINE NEGATIVE (NEGATIVE); COLOR,URINE YELLOW; GLUCOSE, URINE NEGATIVE (NEGATIVE); KETONES,URINE 20 mg/dL (NEGATIVE); LEUKOCYTE ESTERASE,URINE LARGE (NEGATIVE); NITRITE,URINE NEGATIVE (NEGATIVE); PROTEIN,URINE 30 mg/dL (NEGATIVE); URINE SPECIFIC GRAVITY 1.024; UROBILINOGEN,URINE NEGATIVE mg/dL (<2.0)
[2017-12-30 12:04] LABS: ABSOLUTE EOSINOPHILS # (AUTO) 0.1 10^3/uL (0.0-0.6); ABSOLUTE MONOCYTES (AUTO) 0.7 10^3/uL (0.1-1.4); ABSOLUTE NEUT (AUTO) 6.4 10^3/uL (1.7-8.2); BASOPHILS % (AUTO) 0.4 % (0-2); EOSINOPHILS % (AUTO) 1.1 % (0-6); HEMATOCRIT 36.2 % (36.0-47.0); HEMOGLOBIN 12.1 g/dL (12.0-15.5); LYMPHOCYTES % (AUTO) 21.8 % (13-45); MEAN CORPUSCULAR HEMOGLOBIN 27.5 pg (27.0-33.4); MEAN CORPUSCULAR HGB CONC 33.5 g/dL (32.0-36.0); MEAN CORPUSCULAR VOLUME 82 fl (80-97); MONOCYTES % (AUTO) 7.4 % (3-13); PLATELET COUNT 328 10^3/uL (150-450); RED BLOOD COUNT 4.41 10^6/uL (3.72-5.28); RED CELL DISTRIBUTION WIDTH 14.1 % (11.5-14.0); SEGMENTED NEUTROPHILS % (AUTO) 69.3 % (42-78); TOTAL CELLS COUNTED % (AUTO) 100 %; WHITE BLOOD COUNT 9.2 10^3/uL (4.0-10.5)
[2017-12-30 12:22] LABS: ALANINE AMINOTRANSFERASE 63 U/L (9-52); ALBUMIN 4.1 g/dL (3.5-5.0); ALKALINE PHOSPHATASE 94 U/L (38-126); ANION GAP 11 (5-19); ASPARTATE AMINO TRANSFERASE 35 U/L (14-36); BILIRUBIN,DIRECT 0.3 mg/dL (0.0-0.4); BILIRUBIN,TOTAL 0.4 mg/dL (0.2-1.3); BLOOD UREA NITROGEN 6 mg/dL (7-20); CALCIUM 9.1 mg/dL (8.4-10.2); CARBON DIOXIDE 21 mmol/L (22-30); CHLORIDE 107 mmol/L (98-107); GLUCOSE 68 mg/dL (75-110); SODIUM 138.5 mmol/L (137-145); TOTAL PROTEIN 7.2 g/dL (6.3-8.2)
[2017-12-30] MEDS ORDERED: CEPHALEXIN 250 MG CAPSULE PO ONE (12:45)
--- NOTE | 2017-12-30 12:47 | ER Document Report ---
ED GI/ - General Chief Complaint: Nausea/Vomiting Stated Complaint: ABDOMINAL CRAMPING Time Seen by Provider: 12/30/17 10:10 Mode of Arrival: Ambulatory Information source: Patient Notes: Pt is a 32 year old who presents to the ER today approximately 9 weeks with twins who presents with nausea vomiting x 3 days without being able to keep much down over the past 24 hours. She states she's been taking zofran without relief. She denies abdominal cramping, vaginal bleeding. She denies fever/chills. TRAVEL OUTSIDE OF THE [place] IN LAST 30 DAYS: No - Related Data Allergies/Adverse Reactions: buspirone [Buspirone] Allergy (Verified 12/19/17 11:33) citalopram hydrobromide [From Celexa] Allergy (Verified 12/19/17 11:33) latex Allergy (Verified 12/19/17 11:33) metoclopramide [From Reglan] Adverse Reaction (Verified 12/19/17 11:33) Past Medical History - General Information source: Patient - Social History Smoking Status: Never Smoker Chew tobacco use (# tins/day): No Frequency of alcohol use: None Drug Abuse: None Family History: Reviewed & Not Pertinent Patient has suicidal ideation: No Patient has homicidal ideation: No Renal/ Medical History: Denies: Hx Peritoneal Dialysis GI Medical History: Reports: Hx Crohn's Disease Past Surgical History: Reports: Hx Adenoidectomy, Hx Tonsillectomy Review of Systems - Review of Systems Constitutional: No symptoms reported EENT: No symptoms reported Cardiovascular: No symptoms reported Respiratory: No symptoms reported Gastrointestinal: See HPI Genitourinary: No symptoms reported Female Genitourinary: See HPI Musculoskeletal: No symptoms reported Skin: No symptoms reported Hematologic/Lymphatic: No symptoms reported Neurological/Psychological: No symptoms reported Physical Exam - Vital signs Vitals: Temp Pulse BP Pulse Ox 98.1 F 93 120/78 100 12/30/17 10:06 12/30/17 10:06 12/30/17 10:06 12/30/17 10:06 - Notes Notes: PHYSICAL EXAMINATION: GENERAL: Well-appearing and in no acute distress. HEAD: Atraumatic, normocephalic. EYES: Pupils equal round and reactive to light, extraocular movements intact, sclera anicteric, conjunctiva are normal. NECK: Normal range of motion, supple without lymphadenopathy LUNGS: CTAB and equal. No wheezes rales or rhonchi. HEART: Regular rate and rhythm without murmurs Abdomen: no tenderness, soft, no guarding, no rebound EXTREMITIES: Normal range of motion, no pitting edema. No cyanosis. NEUROLOGICAL: Cranial nerves grossly intact. Normal sensory/motor exams. PSYCH: Normal mood, normal affect. SKIN: Warm, Dry, normal turgor, no rash Course - Re-evaluation Re-evalutation: 12/30/17 21:31 labs are unremarkable today, heart tones were good, pt was able to drink fluids after phenergan and was able to keep it down, ate saltines and kept them down. pt to follow up with OBGYN. she has large leukocytes and 48 WBCs on her urinalysis. I will treat for UTI at this time. 12/31/17 21:33 - Vital Signs Vital signs: Temp Pulse Resp BP Pulse Ox 97.6 F 87 17 104/58 L 99 12/30/17 12:59 12/30/17 12:59 12/30/17 12:59 12/30/17 12:59 12/30/17 12:59 - Laboratory Result Diagrams: 12/30/17 11:55 12/30/17 11:55 Laboratory results interpreted by me: 12/30/17 12/30/17 12/30/17 10:16 11:55 11:55 RDW 14.1 H Carbon Dioxide 21 L BUN 6 L Creatinine 0.48 L Glucose 68 L ALT 63 H Urine Protein 30 H Urine Ketones 20 H Ur Leukocyte Esterase LARGE H Discharge - Discharge Clinical Impression: UTI (urinary tract infection) Qualifiers: Urinary tract infection type: acute cystitis Hematuria presence: without hematuria Qualified Code(s): N30.00 - Acute cystitis without hematuria Twin gestation in first trimester Qualifiers: Multiple gestation type: unspecified Qualified Code(s): O30.001 - Twin , unspecified number of placenta and unspecified number of amniotic sacs, first trimester Condition: Stable Disposition: HOME, SELF-CARE Instructions: Cephalexin ([facility]), Urinary Tract Infection ([facility]) Additional Instructions: Return immediately for any new or worsening symptoms. Follow up with primary care provider, call tomorrow to make followup appointment. Drink plenty of fluids. Please follow-up with your [employer] to have your urine rechecked in a couple of days to make sure the antibiotic is working. Prescriptions: Cephalexin Monohydrate [Keflex 250 mg Capsule] 250 mg PO BID #10 capsule Promethazine HCl [Phenergan 25 mg Tablet] 1 - 2 tab PO Q6H PRN #30 tablet PRN Reason: Referrals: LYNDA VEGA MD [Primary Care Provider] - Follow up as needed
[2017-12-30 13:04] VITALS: BP 104/58
== END 2017-12-30 13:35 | disposition home or self-care (01) ==
LOC: ER 10:00
DX: O23.11 Infections of bladder in pregnancy, first trimester (principal); O21.9 Vomiting of pregnancy, unspecified; O30.001 Twin pregnancy, unspecified number of placenta and unspecified number of amniotic sacs, first trimester; Z3A.00 Weeks of gestation of pregnancy not specified; Z88.8 Allergy status to other drugs, medicaments and biological substances; Z91.040 Latex allergy status
CPT/HCPCS: 99284; 96372; 96360; 36415; 85025; 80053; 81001; J2550; J7030

== ENCOUNTER 2018-01-07 01:07 | Emergency (ER) | payer OTHER, MEDICAID ==
[2018-01-07] MEDS ORDERED: NORMAL SALINE 1000 ML 1,000 ML IV ONE (02:52)
[2018-01-07] MEDS ORDERED: ONDANSETRON HCL INJ/PF 4 MG/2 ML SDV IV ONE (02:52)
--- NOTE | 2018-01-07 02:52 | ER Document Report ---
ED General - General Chief Complaint: Constipation Stated Complaint: BACK PAIN Time Seen by Provider: 01/07/18 02:35 Mode of Arrival: Ambulatory Information source: Patient Notes: Patient is a 32-year-old female who presents with chief complaint of constipation, nausea and vomiting. Patient reports that she is approximately 11 weeks with twins. Patient reports that she is currently taking Keflex for a urinary tract infection and has been taking it for approximately 8 days. Patient reports of her urinary symptoms have resolved. Patient reports that she has had vomiting throughout this however today in particular she has vomited 3 times and states that she just generally feels unwell. Patient reports past medical history of GERD and Crohn's. Patient is a . TRAVEL OUTSIDE OF THE [place] IN LAST 30 DAYS: No - Related Data Allergies/Adverse Reactions: buspirone [Buspirone] Allergy (Verified 01/07/18 02:29) citalopram hydrobromide [From Celexa] Allergy (Verified 01/07/18 02:29) latex Allergy (Verified 01/07/18 02:29) metoclopramide [From Reglan] Adverse Reaction (Verified 01/07/18 02:29) Past Medical History - General Information source: Patient - Social History Smoking Status: Never Smoker Frequency of alcohol use: None Drug Abuse: None Family History: Reviewed & Not Pertinent Patient has suicidal ideation: No Patient has homicidal ideation: No Renal/ Medical History: Denies: Hx Peritoneal Dialysis GI Medical History: Reports: Hx Crohn's Disease, Hx Gastroesophageal Reflux Disease Past Surgical History: Reports: Hx Adenoidectomy, Hx Tonsillectomy Review of Systems - Review of Systems Constitutional: No symptoms reported EENT: No symptoms reported Cardiovascular: No symptoms reported Respiratory: No symptoms reported Gastrointestinal: No symptoms reported Genitourinary: No symptoms reported Female Genitourinary: No symptoms reported Musculoskeletal: Back pain Skin: No symptoms reported Hematologic/Lymphatic: No symptoms reported Neurological/Psychological: No symptoms reported Physical Exam - Vital signs Vitals: Temp Pulse Resp BP Pulse Ox 97.8 F 98 18 112/68 98 01/07/18 01:13 01/07/18 01:13 01/07/18 01:13 01/07/18 01:13 01/07/18 01:13 - Notes Notes: PHYSICAL EXAMINATION: GENERAL: Well-appearing, well-nourished and in no acute distress. HEAD: Atraumatic, normocephalic. EYES: Pupils equal round and reactive to light, extraocular movements intact, conjunctiva are normal. ENT: Nares patent, oropharynx clear without exudates. Moist mucous membranes. NECK: Normal range of motion, supple without lymphadenopathy LUNGS: Breath sounds clear to auscultation bilaterally and equal. No wheezes rales or rhonchi. HEART: Regular rate and rhythm without murmurs ABDOMEN: Soft, nontender, nondistended abdomen. No guarding, no rebound. No masses appreciated. Female : deferred Musculoskeletal: Normal range of motion, no pitting or edema. No cyanosis. NEUROLOGICAL: Cranial nerves grossly intact. Normal speech, normal gait. Normal sensory, motor exams PSYCH: Normal mood, normal affect. SKIN: Warm, Dry, normal turgor, no rashes or lesions noted. Course - Re-evaluation Re-evalutation: Otherwise healthy 32 year old female presenting with left lower quadrant pain, low back pain, constipation, nausea, and vomiting. Patient reports that she is a and is 11 weeks with twins. Patient denies any vaginal bleeding or abnormal discharge. Patient currently taking keflex for a UTI. Patient appears well, and vitals are stable. CBC and CMP are unremarkable. Urinalysis improved from 8 days ago when she was diagnosed with UTI. Will provide IV fluids and zofran and send patient for ultrasound. Patient offered enema as she states that she has not had a normal BM in 3-4 days, patient unsure if she wants this. Ultrasound shows viable twin intrauterine and a closed but abnormally short cervix. This was discussed with patient and she understands the need for close monitoring and follow up on this as she may have an incompetent cervix. Patient feels well overall after IV fluids. Will discharge home with plan to follow u with OBGYN early this week. Patient agreeable to the plan of care. - Vital Signs Vital signs: Temp Pulse Resp BP Pulse Ox 97.6 F 88 20 114/83 100 01/07/18 05:17 01/07/18 05:17 01/07/18 05:17 01/07/18 05:17 01/07/18 05:17 - Laboratory Result Diagrams: 01/07/18 03:49 01/07/18 03:49 Laboratory results interpreted by me: 01/07/18 01/07/18 01/07/18 02:16 03:49 03:49 Hgb 11.9 L Hct 35.4 L Creatinine 0.46 L Ur Leukocyte Esterase MODERATE H Discharge - Discharge Clinical Impression: Qualifiers: Weeks of gestation: 11 weeks Qualified Code(s): Z3A.11 - 11 weeks gestation of Constipated Qualifiers: Constipation type: unspecified constipation type Qualified Code(s): K59.00 - Constipation, unspecified Vomiting Qualifiers: Vomiting type: unspecified Vomiting Intractability: unspecified Nausea presence : with nausea Qualified Code(s): R11.2 - Nausea with vomiting, unspecified Condition: Stable Disposition: HOME, SELF-CARE Additional Instructions: Constipation Constipation is a common problem. It is especially likely as you get older. Constipation is a common cause of abdominal pain, but sometimes causes no symptoms at all. Causes of constipation include certain medications, dehydration, diets, inactivity, and low-fiber intake. Rarely, it can be a symptom of underlying disease. The physician has evaluated you for this. Avoid constipation by eating a diet high in fiber, fruits, and vegetables. Drink plenty of liquids. Get regular exercise. If possible, avoid constipating medicines like narcotic pain medication. Some vitamin tablets can cause constipation. Stool softeners may be needed for difficult cases. An excellent stool softener is Konsyl which is available at [place], [employer] drug store. Just add a teaspoon to a glass of pineapple or orange juice daily or twice a day if needed. Laxatives are useful for occasional constipation. You should use them only when necessary. Too-frequent use can make your bowels dependent on them. Some over the counter laxatives available without prescription are: Citrate of Magnesia, 4-5 ounces a day for a day or two For acute constipation, Fleet's Enemas and Dulcolax suppositories are helpful. Chronic, nursing home use of laxatives or enemas is not a good idea. Your bowel may become dependant on them. You do not need to have a bowel movement every day. Many people do fine with a bowel movement every three or four days. You should call your doctor or return for re-evaluation if you pass blood in the stool, or if you develop fever or increasing abdominal pain. ANTINAUSEA MEDICATION: You have been given a medication to suppress nausea and vomiting. This type of medication can be given as a shot, pill, or suppository. It will usually last for many hours. Pills and shots usually last six to eight hours. For the typical illness, only one or two doses of the medication may be necessary. Mild lightheadedness may occur. This type of medicine can cause drowsiness. Do not drive or operate dangerous machinery while under its influence. Do not mix with alcohol. See your doctor at once if you have muscle spasms or tightness, or uncontrollable motions (particularly of the neck, mouth, or jaw). Persistent vomiting or severe lightheadedness should also be evaluated by the physician. FOLLOW-UP CARE: If you have been referred to a physician for follow-up care, call the physician s office for an appointment as you were instructed or within the next two days. If you experience worsening or a significant change in your symptoms, notify the physician immediately or return to the Emergency Department at any time for re-evaluation. Please follow-up with your ORTHOTIST PROSTHETIST next week for reevaluation. Continue to take the antibiotics as prescribed for your resolving urinary tract infection. I have given you a copy of your ultrasound reports the that you can take it maternal medicine to discuss the findings with your cervix. Everything appears normal today with the baby A and baby B. Drink plenty of fluids, increase her fiber intake. Return to the emergency department department if you develop abdominal pain, vaginal bleeding or any other symptoms that is concerning to you. Referrals: LYNDA VEGA MD [Primary Care Provider] - Follow up as needed
[2018-01-07 03:42] LABS: AMORPHOUS SEDIMENT,URINE TRACE /HPF; APPEARANCE,URINE CLOUDY; BILIRUBIN,URINE NEGATIVE (NEGATIVE); COLOR,URINE YELLOW; GLUCOSE, URINE NEGATIVE (NEGATIVE); KETONES,URINE NEGATIVE (NEGATIVE); LEUKOCYTE ESTERASE,URINE MODERATE (NEGATIVE); NITRITE,URINE NEGATIVE (NEGATIVE); PROTEIN,URINE NEGATIVE (NEGATIVE); URINE SPECIFIC GRAVITY 1.023; UROBILINOGEN,URINE NEGATIVE mg/dL (<2.0)
[2018-01-07] MEDS ORDERED: ONDANSETRON HCL INJ/PF 4 MG/2 ML SDV ONE (04:00)
[2018-01-07 04:14] LABS: ABSOLUTE BASOPHILS # (AUTO) 0.1 10^3/uL (0.0-0.2); ABSOLUTE EOSINOPHILS # (AUTO) 0.2 10^3/uL (0.0-0.6); ABSOLUTE LYMPHOCYTES (AUTO) 2.5 10^3/uL (0.5-4.7); ABSOLUTE MONOCYTES (AUTO) 0.8 10^3/uL (0.1-1.4); BASOPHILS % (AUTO) 1.1 % (0-2); EOSINOPHILS % (AUTO) 2.1 % (0-6); HEMATOCRIT 35.4 % (36.0-47.0); HEMOGLOBIN 11.9 g/dL (12.0-15.5); LYMPHOCYTES % (AUTO) 32.8 % (13-45); MEAN CORPUSCULAR HEMOGLOBIN 27.5 pg (27.0-33.4); MEAN CORPUSCULAR HGB CONC 33.7 g/dL (32.0-36.0); MEAN CORPUSCULAR VOLUME 82 fl (80-97); MONOCYTES % (AUTO) 10.5 % (3-13); PLATELET COUNT 337 10^3/uL (150-450); RED BLOOD COUNT 4.34 10^6/uL (3.72-5.28); RED CELL DISTRIBUTION WIDTH 13.7 % (11.5-14.0); SEGMENTED NEUTROPHILS % (AUTO) 53.5 % (42-78); TOTAL CELLS COUNTED % (AUTO) 100 %; WHITE BLOOD COUNT 7.5 10^3/uL (4.0-10.5)
[2018-01-07 04:16] LABS: ANION GAP 10 (5-19); BLOOD UREA NITROGEN 10 mg/dL (7-20); CALCIUM 9.1 mg/dL (8.4-10.2); CARBON DIOXIDE 23 mmol/L (22-30); CHLORIDE 107 mmol/L (98-107); GLUCOSE 81 mg/dL (75-110); POTASSIUM 4.2 mmol/L (3.6-5.0); SODIUM 139.7 mmol/L (137-145)
--- NOTE | 2018-01-07 04:25 | RADIOLOGY REPORT (SQ) ---
EXAM DESCRIPTION: US LESS THAN 14 WEEKS COMPLETED DATE/TME: 01/07/2018 02:49 CLINICAL HISTORY: 32 years, Female, abd pain, back pain, 11 wks gestation twins COMPARISON: 12/19/2017 TECHNIQUE: Complete first trimester obstetrical ultrasound LIMITATIONS: None. FINDINGS: There is a twin gestation identified within the uterus. Fetus A has a crown-rump length of 4.08 cm compatible with an estimated gestational age of 11 weeks, 0 days. Fetus A has a heart rate of 158 bpm. Fetus B has a crown-rump length of 4.02 cm compatible with an estimated gestational age of 10 weeks, 6 days. Fetus B has a heart rate of 152 bpm. No subchorionic hemorrhage identified. The cervix measures 2.7 cm and is closed. The right ovary is not identified. The left ovary measures 3.2 x 2.8 x 3.8 cm. Color Doppler imaging of the left ovary demonstrates blood flow. There is a 2.3 x 1.8 x 2.5 cm simple cyst in the left ovary which is almost certainly benign and requires no imaging follow-up. No free pelvic fluid. No large adnexal masses. IMPRESSION: 1. Live twin as detailed above. Estimated gestational age of fetus A is 11 weeks, 0 days and Fetus B is 10 weeks, 6 days. 2. Cervical length is below 3 cm which could be seen with cervical incompetence. No funneling identified. Continued close of surgical follow-up recommended. 2010 [employer]- All Rights Reserved
[2018-01-07] MEDS ORDERED: MAGNESIUM CITRATE 296 ML BOTTLE PO ONE (05:06)
[2018-01-07 05:45] VITALS: BP 114/83
== END 2018-01-07 05:17 | disposition home or self-care (01) ==
LOC: ER 01:07
DX: O99.611 Diseases of the digestive system complicating pregnancy, first trimester (principal); K59.00 Constipation, unspecified; O21.9 Vomiting of pregnancy, unspecified; O23.41 Unspecified infection of urinary tract in pregnancy, first trimester; O30.001 Twin pregnancy, unspecified number of placenta and unspecified number of amniotic sacs, first trimester; O99.89 Other specified diseases and conditions complicating pregnancy, childbirth and the puerperium; M54.9 Dorsalgia, unspecified; Z3A.11 11 weeks gestation of pregnancy; Z88.8 Allergy status to other drugs, medicaments and biological substances; Z91.040 Latex allergy status
CPT/HCPCS: 99284; 96361; 96374; 36415; 85025; 80048; 81001; 76801; J3490; J2405; J7030

== ENCOUNTER 2018-01-21 20:12 | Emergency (ER) | payer OTHER, MEDICAID ==
--- NOTE | 2018-01-21 20:37 | ER Document Report ---
ED Medical Screen (RME) - General Chief Complaint: Urinary Frequency Stated Complaint: FREQUENT URINATION Time Seen by Provider: 01/21/18 20:35 Notes: RAPID MEDICAL EVALUATION DISCLOSURE I have seen this patient as part of a Rapid Medical Evaluation and, if applicable, placed any initially appropriate orders. The patient will be seen and fully evaluated, including a full history and physical exam, by a provider ( in Main ED or Fast Track) when a room becomes available. 32-year-old female approximately 13 weeks twin gestation here with complaints of 3 days abdominal cramping and white vaginal discharge and today started to have malodorous urine with frequency. She was treated several weeks ago for UTI with Keflex. She is here because she wanted to come and get checked out just to be on the safe side. She has not seen her AGRICULTURAL CHEMIST about these symptoms. EXAM No abdominal TTP No peritoneal signs TRAVEL OUTSIDE OF THE [place] IN LAST 30 DAYS: No - Related Data Allergies/Adverse Reactions: buspirone [Buspirone] Allergy (Verified 01/07/18 02:29) citalopram hydrobromide [From Celexa] Allergy (Verified 01/07/18 02:29) latex Allergy (Verified 01/07/18 02:29) metoclopramide [From Reglan] Adverse Reaction (Verified 01/07/18 02:29) Past Medical History - Social History Chew tobacco use (# tins/day): No Frequency of alcohol use: None Drug Abuse: None Renal/ Medical History: Denies: Hx Peritoneal Dialysis GI Medical History: Reports: Hx Crohn's Disease, Hx Gastroesophageal Reflux Disease Past Surgical History: Reports: Hx Adenoidectomy, Hx Tonsillectomy Physical Exam - Vital signs Vitals: Temp Pulse Resp BP Pulse Ox 97.7 F 92 18 130/79 H 98 01/21/18 20:19 01/21/18 20:19 01/21/18 20:19 01/21/18 20:19 01/21/18 20:19 Course - Vital Signs Vital signs: Temp Pulse Resp BP Pulse Ox 97.7 F 92 18 130/79 H 98 01/21/18 20:19 01/21/18 20:19 01/21/18 20:19 01/21/18 20:19 01/21/18 20:19 Doctor's Discharge - Discharge Referrals: LYNDA VEGA MD [Primary Care Provider] - Follow up as needed
--- NOTE | 2018-01-21 20:43 | ER Document Report ---
ED GI/ - General Chief Complaint: Urinary Frequency Stated Complaint: FREQUENT URINATION Time Seen by Provider: 01/21/18 20:35 Mode of Arrival: Ambulatory Information source: Patient Notes: Patient is a 32-year-old female at approximately 13 weeks with twin gestation who presents for the sixth time since being diagnosed with this for complaints. Patient presents today with dysuria and thickened vaginal discharge that she is concerned about. Patient states her discharge is a thicker, creamier white/clear color. She admits to some mild dysuria that is actually better than when I diagnosed her with a UTI a few weeks ago. Patient does state that she finished all of her antibiotic at that time and is followed up with her SPLITTER TENDER and her manager technical training. Patient has Crohn's and is on prednisone at this time that her manager technical training placed her on and her OB/ MAINTENANCE PLUMBER agrees with because she is "having a Crohn's flare." TRAVEL OUTSIDE OF THE [place] IN LAST 30 DAYS: No - Related Data Allergies/Adverse Reactions: buspirone [Buspirone] Allergy (Verified 01/07/18 02:29) citalopram hydrobromide [From Celexa] Allergy (Verified 01/07/18 02:29) latex Allergy (Verified 01/07/18 02:29) metoclopramide [From Reglan] Adverse Reaction (Verified 01/07/18 02:29) Past Medical History - General Information source: Patient - Social History Smoking Status: Never Smoker Chew tobacco use (# tins/day): No Frequency of alcohol use: None Drug Abuse: None Family History: Reviewed & Not Pertinent Patient has suicidal ideation: No Patient has homicidal ideation: No Renal/ Medical History: Denies: Hx Peritoneal Dialysis GI Medical History: Reports: Hx Crohn's Disease, Hx Gastroesophageal Reflux Disease Past Surgical History: Reports: Hx Adenoidectomy, Hx Tonsillectomy Review of Systems - Review of Systems Constitutional: No symptoms reported EENT: No symptoms reported Cardiovascular: No symptoms reported Respiratory: No symptoms reported Gastrointestinal: No symptoms reported Genitourinary: No symptoms reported Female Genitourinary: See HPI Musculoskeletal: No symptoms reported Skin: No symptoms reported Hematologic/Lymphatic: No symptoms reported Neurological/Psychological: No symptoms reported Physical Exam - Vital signs Vitals: Temp Pulse Resp BP Pulse Ox 97.7 F 92 18 130/79 H 98 01/21/18 20:19 01/21/18 20:19 01/21/18 20:19 01/21/18 20:19 01/21/18 20:19 - Notes Notes: PHYSICAL EXAMINATION: GENERAL: Well-appearing and in no acute distress. HEAD: Atraumatic, normocephalic. EYES: Pupils equal round and reactive to light, extraocular movements intact, sclera anicteric, conjunctiva are normal. NECK: Normal range of motion, supple without lymphadenopathy LUNGS: CTAB and equal. No wheezes rales or rhonchi. HEART: Regular rate and rhythm without murmurs ABDOMEN: Soft, no tenderness. No guarding, no rebound BACK: no vertebral tenderness, normal ROM GI/: no CVA tenderness EXTREMITIES: Normal range of motion, no pitting edema. No cyanosis. NEUROLOGICAL: Cranial nerves grossly intact. Normal sensory/motor exams. PSYCH: Normal mood, normal affect. SKIN: Warm, Dry, normal turgor, no rashes or lesions noted Course - Re-evaluation Re-evalutation: 01/21/18 22:43 Urinalysis negative for infection today. Patient was offered pelvic exam, but once I told her that this sounds like normal discharge and advised that I would be checking for bacterial vaginosis, gonorrhea and chlamydia she declined pelvic exam stating that she was "not worried about those things." I did advise patient follow-up with her SPLITTER TENDER about her complaints. heart tones were taken today and within normal limits. - Vital Signs Vital signs: Temp Pulse Resp BP Pulse Ox 98.0 F 87 18 114/72 99 01/21/18 21:49 01/21/18 21:49 01/21/18 21:49 01/21/18 21:49 01/21/18 21:49 Discharge - Discharge Clinical Impression: Vaginal discharge during Qualifiers: Trimester: first trimester Qualified Code(s): O26.891 - Other specified related conditions, first trimester Condition: Stable Disposition: HOME, SELF-CARE Additional Instructions: Return immediately for any new or worsening symptoms. Follow up with primary care provider, call tomorrow to make followup appointment. Referrals: LYNDA VEGA MD [Primary Care Provider] - Follow up as needed
[2018-01-21 20:53] LABS: APPEARANCE,URINE SLIGHTLY-CLOUDY; BILIRUBIN,URINE NEGATIVE (NEGATIVE); COLOR,URINE YELLOW; GLUCOSE, URINE NEGATIVE (NEGATIVE); KETONES,URINE NEGATIVE (NEGATIVE); LEUKOCYTE ESTERASE,URINE NEGATIVE (NEGATIVE); NITRITE,URINE NEGATIVE (NEGATIVE); PROTEIN,URINE NEGATIVE (NEGATIVE); UROBILINOGEN,URINE NEGATIVE mg/dL (<2.0)
[2018-01-21 22:00] VITALS: BP 114/72
== END 2018-01-21 21:50 | disposition home or self-care (01) ==
LOC: ER 20:12
DX: O26.891 Other specified pregnancy related conditions, first trimester (principal); N89.8 Other specified noninflammatory disorders of vagina; R30.0 Dysuria; O99.611 Diseases of the digestive system complicating pregnancy, first trimester; K50.90 Crohn's disease, unspecified, without complications; O30.001 Twin pregnancy, unspecified number of placenta and unspecified number of amniotic sacs, first trimester; Z3A.00 Weeks of gestation of pregnancy not specified; Z87.440 Personal history of urinary (tract) infections
CPT/HCPCS: 81001; 99283

== ENCOUNTER 2018-02-24 16:33 | Emergency (ER) | payer OTHER, MEDICAID ==
[2018-02-24] MEDS ORDERED: NORMAL SALINE 1000 ML 1,000 ML IV PRN (16:56)
[2018-02-24] MEDS ORDERED: NORMAL SALINE 1000 ML 1,000 ML IV ONE (16:56)
--- NOTE | 2018-02-24 16:57 | ER Document Report ---
ED Medical Screen (RME) - General Chief Complaint: OB Problem (<20wks) Stated Complaint: ABDOMINAL PAIN Time Seen by Provider: 02/24/18 16:49 Notes: 32 years old female with twin , 18 weeks, presents today with on and off dizziness. Having mild pain over the lower abdomen no cramps no vaginal bleeding. Denies any dysuria frequency urgency. TRAVEL OUTSIDE OF THE [place] IN LAST 30 DAYS: No - Related Data Allergies/Adverse Reactions: buspirone [Buspirone] Allergy (Verified 02/24/18 16:34) citalopram hydrobromide [From Celexa] Allergy (Verified 02/24/18 16:34) latex Allergy (Verified 02/24/18 16:34) metoclopramide [From Reglan] Adverse Reaction (Verified 02/24/18 16:34) Past Medical History Renal/ Medical History: Denies: Hx Peritoneal Dialysis GI Medical History: Reports: Hx Crohn's Disease, Hx Gastroesophageal Reflux Disease Past Surgical History: Reports: Hx Adenoidectomy, Hx Tonsillectomy Physical Exam - Vital signs Vitals: Temp Pulse Resp BP Pulse Ox 98.3 F 113 H 18 122/68 98 02/24/18 16:39 02/24/18 16:39 02/24/18 16:39 02/24/18 16:39 02/24/18 16:39 Course - Vital Signs Vital signs: Temp Pulse Resp BP Pulse Ox 98.3 F 113 H 18 122/68 98 02/24/18 16:39 02/24/18 16:39 02/24/18 16:39 02/24/18 16:39 02/24/18 16:39 Doctor's Discharge - Discharge Referrals: LYNDA VEGA MD [Primary Care Provider] - Follow up as needed
[2018-02-24 17:20] LABS: ABSOLUTE BASOPHILS # (AUTO) 0.1 10^3/uL (0.0-0.2); ABSOLUTE LYMPHOCYTES (AUTO) 2.4 10^3/uL (0.5-4.7); ABSOLUTE MONOCYTES (AUTO) 0.7 10^3/uL (0.1-1.4); BASOPHILS % (AUTO) 0.7 % (0-2); EOSINOPHILS % (AUTO) 0.2 % (0-6); HEMATOCRIT 31.7 % (36.0-47.0); HEMOGLOBIN 10.5 g/dL (12.0-15.5); LYMPHOCYTES % (AUTO) 21.2 % (13-45); MEAN CORPUSCULAR HEMOGLOBIN 26.2 pg (27.0-33.4); MEAN CORPUSCULAR VOLUME 79 fl (80-97); MONOCYTES % (AUTO) 6.5 % (3-13); PLATELET COUNT 342 10^3/uL (150-450); RED CELL DISTRIBUTION WIDTH 14.6 % (11.5-14.0); SEGMENTED NEUTROPHILS % (AUTO) 71.4 % (42-78); TOTAL CELLS COUNTED % (AUTO) 100 %; WHITE BLOOD COUNT 11.2 10^3/uL (4.0-10.5)
[2018-02-24 17:32] LABS: APPEARANCE,URINE CLEAR; BILIRUBIN,URINE NEGATIVE (NEGATIVE); CALCIUM OXALATE CRYSTALS,URINE FEW /HPF; COLOR,URINE YELLOW; GLUCOSE, URINE NEGATIVE (NEGATIVE); KETONES,URINE NEGATIVE (NEGATIVE); LEUKOCYTE ESTERASE,URINE NEGATIVE (NEGATIVE); NITRITE,URINE NEGATIVE (NEGATIVE); PROTEIN,URINE NEGATIVE (NEGATIVE); URINE SPECIFIC GRAVITY 1.029; UROBILINOGEN,URINE NEGATIVE mg/dL (<2.0)
[2018-02-24 17:33] LABS: ALANINE AMINOTRANSFERASE 20 U/L (9-52); ALBUMIN 3.9 g/dL (3.5-5.0); ALKALINE PHOSPHATASE 70 U/L (38-126); ANION GAP 12 (5-19); ASPARTATE AMINO TRANSFERASE 19 U/L (14-36); BILIRUBIN,DIRECT 0.2 mg/dL (0.0-0.4); BILIRUBIN,TOTAL 0.3 mg/dL (0.2-1.3); BLOOD UREA NITROGEN 10 mg/dL (7-20); CALCIUM 9.4 mg/dL (8.4-10.2); CARBON DIOXIDE 21 mmol/L (22-30); CHLORIDE 107 mmol/L (98-107); GLUCOSE 86 mg/dL (75-110); POTASSIUM 3.8 mmol/L (3.6-5.0); SODIUM 140.2 mmol/L (137-145); TOTAL PROTEIN 7.3 g/dL (6.3-8.2)
--- NOTE | 2018-02-24 18:14 | ER Document Report ---
ED General - General Chief Complaint: OB Problem (<20wks) Stated Complaint: ABDOMINAL PAIN Time Seen by Provider: 02/24/18 16:49 Notes: Patient presents 18 weeks with twins. Patient is seen by Dr. Mckenzie states that she has had an ultrasound to verify intrauterine . Patient presents for concern of feeling lightheaded worse with bending down. She denies any chest pain shortness or breath at this time. No recent fevers or illnesses. Patient is on prednisone and Humara for her Crohn's disease. She states that she has not been drinking his fluids that she normally does and has been having dysuria. She denies loss of fluids or vaginal discharge concerns for infection or vaginal bleeding. She states that she has been having to strain more over the last week and feels she is constipated although that she had a bowel movement yesterday she suffers from having small amounts of blood in her stool from her Crohn's states that her intermittent bleeding is no worse than it normally is. TRAVEL OUTSIDE OF THE [place] IN LAST 30 DAYS: No - Related Data Allergies/Adverse Reactions: buspirone [Buspirone] Allergy (Verified 02/24/18 16:34) citalopram hydrobromide [From Celexa] Allergy (Verified 02/24/18 16:34) latex Allergy (Verified 02/24/18 16:34) metoclopramide [From Reglan] Adverse Reaction (Verified 02/24/18 16:34) Past Medical History - Social History Smoking Status: Unknown if Ever Smoked Family History: Reviewed & Not Pertinent Patient has suicidal ideation: No Patient has homicidal ideation: No Renal/ Medical History: Denies: Hx Peritoneal Dialysis GI Medical History: Reports: Hx Crohn's Disease, Hx Gastroesophageal Reflux Disease Past Surgical History: Reports: Hx Adenoidectomy, Hx Tonsillectomy Review of Systems - Review of Systems Constitutional: No symptoms reported EENT: No symptoms reported Cardiovascular: Dizziness Respiratory: No symptoms reported Gastrointestinal: Constipation Genitourinary: No symptoms reported Female Genitourinary: No symptoms reported Musculoskeletal: No symptoms reported Skin: No symptoms reported Hematologic/Lymphatic: No symptoms reported Neurological/Psychological: No symptoms reported Physical Exam - Vital signs Vitals: Temp Pulse Resp BP Pulse Ox 98.3 F 113 H 18 122/68 98 02/24/18 16:39 08/17/18 16:39 02/24/18 16:39 02/24/18 16:39 02/24/18 16:39 - General General appearance: Appears well, Alert - HEENT Head: Normocephalic - No pallor of conjunctiva, Atraumatic Eyes: Normal - Respiratory Respiratory status: No respiratory distress Chest status: Nontender Breath sounds: Normal Chest palpation: Normal - Cardiovascular Rhythm: Tachycardia Heart sounds: Normal auscultation Murmur: No - Abdominal Inspection: Normal Distension: No distension Bowel sounds: Normal Tenderness: Nontender - Back Back: Normal, Nontender - Neurological Neuro grossly intact: Yes Orientation: AAOx4 - Skin Skin Color: Normal Course - Re-evaluation Re-evalutation: 02/24/18 19:10 Patient symptoms improved with fluids was able to ambulate in the emergency department without difficulty. Labs did not show any signs of urinary tract infection but will send off the culture due to patient being and informed her cultural positive she will be called in a prescription of antibiotics. Pulse came down with fluids as well. Labs within normal limits are trending within patient's baseline. Return precautions provided - Vital Signs Vital signs: Temp Pulse Resp BP Pulse Ox 97.6 F 102 H 16 125/78 98 02/24/18 18:31 02/24/18 18:31 02/24/18 18:31 02/24/18 18:31 02/24/18 18:31 - Laboratory Result Diagrams: 02/24/18 17:07 02/24/18 17:07 Laboratory results interpreted by me: 02/24/18 02/24/18 17:07 17:07 WBC 11.2 H Hgb 10.5 L Hct 31.7 L MCV 79 L MCH 26.2 L RDW 14.6 H Carbon Dioxide 21 L Creatinine 0.45 L Beta HCG, Quant 67314.00 H Discharge - Discharge Clinical Impression: Dehydration Condition: Good Disposition: HOME, SELF-CARE Instructions: Dehydration (OM) Referrals: LYNDA VEGA MD [Primary Care Provider] - Follow up as needed
[2018-02-24 19:27] VITALS: BP 130/81
== END 2018-02-24 19:26 | disposition home or self-care (01) ==
LOC: ER 16:33
DX: O99.282 Endocrine, nutritional and metabolic diseases complicating pregnancy, second trimester (principal); E86.0 Dehydration; O99.612 Diseases of the digestive system complicating pregnancy, second trimester; K50.90 Crohn's disease, unspecified, without complications; Z79.52 Long term (current) use of systemic steroids; Z79.899 Other long term (current) drug therapy; K59.00 Constipation, unspecified; K92.1 Melena; O26.892 Other specified pregnancy related conditions, second trimester; R42 Dizziness and giddiness; R30.0 Dysuria; R00.0 Tachycardia, unspecified; O30.002 Twin pregnancy, unspecified number of placenta and unspecified number of amniotic sacs, second trimester; Z3A.18 18 weeks gestation of pregnancy; Z88.8 Allergy status to other drugs, medicaments and biological substances; Z91.040 Latex allergy status
CPT/HCPCS: 99284; 96360; 96361; 36415; 87086; 84702; 85025; 80053; 81001; J7030

== ENCOUNTER 2018-02-28 15:51 | Emergency (ER) | payer OTHER, MEDICAID ==
[2018-02-28] MEDS ORDERED: NORMAL SALINE 1000 ML 1,000 ML IV PRN (17:04)
--- NOTE | 2018-02-28 17:06 | ER Document Report ---
ED Medical Screen (RME) - General Chief Complaint: Abdominal Cramping Stated Complaint: BACK PAIN/NAUSEA Time Seen by Provider: 02/28/18 17:04 TRAVEL OUTSIDE OF THE [place] IN LAST 30 DAYS: No - HPI Notes: 02/28/18 17:05 Patient is a with stillbirth at 38 weeks coming the day approximately 19 weeks with twins with back pain feeling unwell. Patient states battling constipation and abdominal cramping. Patient denies any vaginal bleeding. States bowel movement yesterday that was hard. - Related Data Allergies/Adverse Reactions: buspirone [Buspirone] Allergy (Verified 02/24/18 16:34) citalopram hydrobromide [From Celexa] Allergy (Verified 02/24/18 16:34) latex Allergy (Verified 02/24/18 16:34) metoclopramide [From Reglan] Adverse Reaction (Verified 02/24/18 16:34) Past Medical History - Social History Chew tobacco use (# tins/day): No Frequency of alcohol use: None Drug Abuse: None Renal/ Medical History: Denies: Hx Peritoneal Dialysis GI Medical History: Reports: Hx Crohn's Disease, Hx Gastroesophageal Reflux Disease Past Surgical History: Reports: Hx Adenoidectomy, Hx Tonsillectomy Review of Systems - Review of Systems Gastrointestinal: Abdominal pain Physical Exam - Vital signs Vitals: Temp Pulse Resp BP Pulse Ox 97.9 F 118 H 16 126/71 H 97 02/28/18 15:55 02/28/18 15:55 02/28/18 15:55 02/28/18 15:55 02/28/18 15:55 - HEENT Head: Normocephalic Eyes: Normal Conjunctiva: Normal Cornea: Normal - Respiratory Respiratory status: No respiratory distress Chest status: Nontender Breath sounds: Normal Chest palpation: Normal Course - Vital Signs Vital signs: Temp Pulse Resp BP Pulse Ox 97.9 F 118 H 16 126/71 H 97 02/28/18 15:55 02/28/18 15:55 02/28/18 15:55 02/28/18 15:55 02/28/18 15:55 Doctor's Discharge - Discharge Referrals: LYNDA VEGA MD [Primary Care Provider] - Follow up as needed
[2018-02-28 17:42] LABS: ABSOLUTE EOSINOPHILS # (AUTO) 0.1 10^3/uL (0.0-0.6); ABSOLUTE LYMPHOCYTES (AUTO) 2.2 10^3/uL (0.5-4.7); ABSOLUTE MONOCYTES (AUTO) 0.9 10^3/uL (0.1-1.4); ABSOLUTE NEUT (AUTO) 7.8 10^3/uL (1.7-8.2); BASOPHILS % (AUTO) 0.4 % (0-2); EOSINOPHILS % (AUTO) 0.5 % (0-6); HEMOGLOBIN 11.3 g/dL (12.0-15.5); LYMPHOCYTES % (AUTO) 19.7 % (13-45); MEAN CORPUSCULAR HEMOGLOBIN 26.4 pg (27.0-33.4); MEAN CORPUSCULAR HGB CONC 33.4 g/dL (32.0-36.0); MEAN CORPUSCULAR VOLUME 79 fl (80-97); PLATELET COUNT 344 10^3/uL (150-450); RED BLOOD COUNT 4.29 10^6/uL (3.72-5.28); RED CELL DISTRIBUTION WIDTH 14.5 % (11.5-14.0); SEGMENTED NEUTROPHILS % (AUTO) 71.4 % (42-78); TOTAL CELLS COUNTED % (AUTO) 100 %; WHITE BLOOD COUNT 10.9 10^3/uL (4.0-10.5)
[2018-02-28 17:46] LABS: APPEARANCE,URINE SLIGHTLY-CLOUDY; BILIRUBIN,URINE NEGATIVE (NEGATIVE); COLOR,URINE YELLOW; GLUCOSE, URINE NEGATIVE (NEGATIVE); KETONES,URINE TRACE mg/dL (NEGATIVE); LEUKOCYTE ESTERASE,URINE TRACE (NEGATIVE); NITRITE,URINE NEGATIVE (NEGATIVE); PROTEIN,URINE 100 mg/dL (NEGATIVE); URINE SPECIFIC GRAVITY 1.034
[2018-02-28 17:58] LABS: ANION GAP 13 (5-19); BLOOD UREA NITROGEN 10 mg/dL (7-20); CALCIUM 9.6 mg/dL (8.4-10.2); CARBON DIOXIDE 22 mmol/L (22-30); CHLORIDE 104 mmol/L (98-107); GLUCOSE 74 mg/dL (75-110); SODIUM 138.5 mmol/L (137-145)
--- NOTE | 2018-02-28 19:26 | RADIOLOGY REPORT (SQ) ---
EXAM DESCRIPTION: U/S OB LIMITED COMPLETED DATE/TIME: 02/28/2018 7:07 pm REASON FOR STUDY: abd pain back pain COMPARISON: 01/07/2018 TECHNIQUE: Limited transabdominal grayscale ultrasound for evaluation of specific requested obstetri ashley parameters. LIMITATIONS: None. FINDINGS: CERVICAL LENGTH: 2.8 cm. Closed. SIRISHA: 14 cm. FHR: A 145 ; B 131 beats per minute. PRESENTATION: BREECH/TRANSVERSE OTHER: No other significant findings. IMPRESSION: LIMITED OBSTETRICAL ULTRASOUND WITH MEASURED PARAMETERS DELINEATED ABOVE. Trimester of : Second trimester - 13 weeks 1 day to 27 weeks 6 days. TECHNICAL DOCUMENTATION: JOB ID: [id number] [employer]- All Rights Reserved Reading location - IP/workstation name: [email or web address]
--- NOTE | 2018-02-28 20:25 | ER Document Report ---
ED GI/ - General Chief Complaint: Abdominal Cramping Stated Complaint: BACK PAIN/NAUSEA Time Seen by Provider: 02/28/18 17:04 Mode of Arrival: Ambulatory Information source: Patient TRAVEL OUTSIDE OF THE [place] IN LAST 30 DAYS: No - HPI Patient complains to provider of: Abdominal pain Onset: Just prior to arrival Timing/Duration: Sudden Quality of pain: Achy, Cramping Severity at maximum: Mild Severity in ED: Mild Pain Level: 2 Location: Suprapubic Vaginal bleeding (Compared to normal period): None OB ultrasound done: Yes Sexual history: Active Exacerbated by: Denies Relieved by: Denies Similar symptoms previously: No Recently seen / treated by doctor: No - Related Data Allergies/Adverse Reactions: buspirone [Buspirone] Allergy (Verified 02/24/18 16:34) citalopram hydrobromide [From Celexa] Allergy (Verified 02/24/18 16:34) latex Allergy (Verified 02/24/18 16:34) metoclopramide [From Reglan] Adverse Reaction (Verified 02/24/18 16:34) Past Medical History - Social History Smoking Status: Never Smoker Chew tobacco use (# tins/day): No Frequency of alcohol use: None Drug Abuse: None Family History: Reviewed & Not Pertinent Patient has suicidal ideation: No Patient has homicidal ideation: No Renal/ Medical History: Denies: Hx Peritoneal Dialysis GI Medical History: Reports: Hx Crohn's Disease, Hx Gastroesophageal Reflux Disease Past Surgical History: Reports: Hx Adenoidectomy, Hx Tonsillectomy Review of Systems - Review of Systems Constitutional: denies: Chills, Fever EENT: No symptoms reported Cardiovascular: No symptoms reported Respiratory: No symptoms reported Gastrointestinal: Abdominal pain Genitourinary: No symptoms reported Female Genitourinary: No symptoms reported Musculoskeletal: No symptoms reported Skin: No symptoms reported Hematologic/Lymphatic: No symptoms reported Neurological/Psychological: No symptoms reported -: Yes All other systems reviewed and negative Physical Exam - Vital signs Vitals: Temp Pulse Resp BP Pulse Ox 97.9 F 118 H 16 126/71 H 97 02/28/18 15:55 02/28/18 15:55 02/28/18 15:55 02/28/18 15:55 02/28/18 15:55 - General General appearance: Appears well, Alert In distress: None - HEENT Head: Normocephalic, Atraumatic Eyes: Normal Pupils: PERRL - Respiratory Respiratory status: No respiratory distress Chest status: Nontender Breath sounds: Normal Chest palpation: Normal - Cardiovascular Rhythm: Regular Heart sounds: Normal auscultation Murmur: No - Abdominal Inspection: Normal Distension: No distension Bowel sounds: Normal Tenderness: Nontender Organomegaly: No organomegaly - Back Back: Normal, Nontender - Extremities General upper extremity: Normal inspection, Nontender, Normal color, Normal ROM , Normal temperature General lower extremity: Normal inspection, Nontender, Normal color, Normal ROM , Normal temperature, Normal weight bearing. No: Brenda's sign - Neurological Neuro grossly intact: Yes Cognition: Normal Orientation: AAOx4 Marielle Coma Scale Eye Opening: Spontaneous Marielle Coma Scale Verbal: Oriented Farwell Coma Scale Motor: Obeys Commands Marielle Coma Scale Total: 15 Speech: Normal Motor strength normal: LUE, RUE, LLE, RLE Sensory: Normal - Psychological Associated symptoms: Normal affect, Normal mood - Skin Skin Temperature: Warm Skin Moisture: Dry Skin Color: Normal Course - Re-evaluation Re-evalutation: 03/01/18 02:[address] Vega the patient's INSURANCE CLAIMS CLERK doctor. She said the patient's pain is not due to her . And from the point of view patient is safe to go home. Patient has a process safety specialist who takes care of her Crohn's disease. She says she will follow-up with her process safety specialist tomorrow morning. - Vital Signs Vital signs: Temp Pulse Resp BP Pulse Ox 97.9 F 118 H 16 106/61 100 02/28/18 15:55 02/28/18 15:55 02/28/18 23:01 02/28/18 23:01 02/28/18 23:01 - Laboratory Result Diagrams: 02/28/18 17:11 02/28/18 17:11 Laboratory results interpreted by me: 02/28/18 02/28/18 02/28/18 17:11 17:11 17:11 WBC 10.9 H Hgb 11.3 L Hct 34.0 L MCV 79 L MCH 26.4 L RDW 14.5 H Creatinine 0.48 L Glucose 74 L Beta HCG, Quant 61493.00 H Urine Protein 100 H Urine Ketones TRACE H Urine Urobilinogen 2.0 H Ur Leukocyte Esterase TRACE H Urine Ascorbic Acid 40 H Discharge - Discharge Clinical Impression: Abdominal pain Qualifiers: Abdominal location: lower abdomen, unspecified Qualified Code(s): R10.30 - Lower abdominal pain, unspecified Condition: Stable Disposition: HOME, SELF-CARE Instructions: Abdominal Pain ([facility]) Additional Instructions: Please follow-up with Dr. Vega tomorrow morning. Also follow-up with her process safety specialist tomorrow morning. Return to the emergency room if condition worsens. Referrals: LYNDA VEGA MD [Primary Care Provider] - Follow up as needed
[2018-02-28 22:23] LABS: ALANINE AMINOTRANSFERASE 28 U/L (9-52); ALBUMIN 3.9 g/dL (3.5-5.0); ALKALINE PHOSPHATASE 72 U/L (38-126); ASPARTATE AMINO TRANSFERASE 24 U/L (14-36); BILIRUBIN,DIRECT 0.3 mg/dL (0.0-0.4); BILIRUBIN,TOTAL 0.3 mg/dL (0.2-1.3); TOTAL PROTEIN 7.3 g/dL (6.3-8.2)
[2018-02-28 23:18] VITALS: BP 106/61
== END 2018-03-01 00:01 | disposition home or self-care (01) ==
LOC: ER 15:51
DX: R10.30 Lower abdominal pain, unspecified (principal); M54.9 Dorsalgia, unspecified; R11.0 Nausea; Z33.1 Pregnant state, incidental
CPT/HCPCS: 99284; 96360; 96361; 36415; 84702; 85025; 80076; 80048; 81001; 76815; J7030

== ENCOUNTER 2018-04-26 09:39 | Emergency (ER) | payer OTHER, MEDICAID ==
[2018-04-26] MEDS ORDERED: ALBUTEROL SULFATE 0.042% NEB (1.25 MG/3 ML) AMPUL NEB ONE (10:13)
--- NOTE | 2018-04-26 10:16 | ER Document Report ---
ED Medical Screen (RME) - General Chief Complaint: Shortness Of Breath Stated Complaint: SHORTNESS OF BREATH Time Seen by Provider: 04/26/18 10:13 Notes: 32 years old female who is 27-week sent over here by the power distribution engineer to have a CT of the chest for rule out PE. Patient was having nasal congestion and shortness of breath on exertion and sometimes at rest. Has a history of sports induced asthma, recently started on metoprolol for rapid heartbeats. By the vocational examiner. Since being on metoprolol having increasing shortness of breath and occasional wheezing. TRAVEL OUTSIDE OF THE [place]S. IN LAST 30 DAYS: No - Related Data Allergies/Adverse Reactions: buspirone [Buspirone] Allergy (Verified 04/26/18 09:42) citalopram hydrobromide [From Celexa] Allergy (Verified 04/26/18 09:42) latex Allergy (Verified 04/26/18 09:42) metoclopramide [From Reglan] Adverse Reaction (Verified 04/26/18 09:42) Past Medical History - Social History Frequency of alcohol use: None Drug Abuse: None Renal/ Medical History: Denies: Hx Peritoneal Dialysis GI Medical History: Reports: Hx Crohn's Disease, Hx Gastroesophageal Reflux Disease Past Surgical History: Reports: Hx Adenoidectomy, Hx Tonsillectomy Physical Exam - Vital signs Vitals: Temp Pulse Resp BP Pulse Ox 98.1 F 111 H 24 H 115/71 98 04/26/18 09:52 04/26/18 09:52 04/26/18 09:52 04/26/18 09:52 04/26/18 09:52 Course - Vital Signs Vital signs: Temp Pulse Resp BP Pulse Ox 98.1 F 111 H 24 H 115/71 98 04/26/18 09:52 04/26/18 09:52 04/26/18 09:52 04/26/18 09:52 04/26/18 09:52 Doctor's Discharge - Discharge Referrals: LYNDA VEGA MD [Primary Care Provider] - Follow up as needed
[2018-04-26 10:45] LABS: HEMATOCRIT 27.4 % (36.0-47.0); HEMOGLOBIN 9.1 g/dL (12.0-15.5); MEAN CORPUSCULAR HEMOGLOBIN 24.7 pg (27.0-33.4); MEAN CORPUSCULAR HGB CONC 33.4 g/dL (32.0-36.0); MEAN CORPUSCULAR VOLUME 74 fl (80-97); PLATELET COUNT 356 10^3/uL (150-450); RED CELL DISTRIBUTION WIDTH 16.5 % (11.5-14.0); WHITE BLOOD COUNT 11.1 10^3/uL (4.0-10.5)
[2018-04-26 11:24] LABS: ANION GAP 9 (5-19); BLOOD UREA NITROGEN 7 mg/dL (7-20); CALCIUM 9.4 mg/dL (8.4-10.2); CARBON DIOXIDE 21 mmol/L (22-30); CHLORIDE 106 mmol/L (98-107); GLUCOSE 130 mg/dL (75-110); POTASSIUM 3.5 mmol/L (3.6-5.0); SODIUM 135.9 mmol/L (137-145)
--- NOTE | 2018-04-26 12:01 | RADIOLOGY REPORT (SQ) ---
EXAM DESCRIPTION: CTA CHEST COMPLETED DATE/TIME: 04/26/2018 11:49 am REASON FOR STUDY: , sob COMPARISON: None. TECHNIQUE: CT scan of the chest performed using helical scanning technique with dynamic intravenous contrast injection. Images reviewed with lung, soft tissue and bone windows. Reconstructed coronal and sagittal MPR images reviewed. Additional 3 dimensional post-processing performed to develop Maximal Intensity Projection images (AR P). All images stored on PACS. All CT scanners at this facility use dose modulation, iterative reconstruction, and/or weight based d osing when appropriate to reduce radiation dose to as low as reasonably achievable (ALARA). [facility]: Dose Right [facility]: CareDose [facility]: Dose Right [facility]: Teradose 4D [facility]: MasterImage 3D CONTRAST TYPE AND DOSE: contrast/concentration: Isovue 350.00 mg/ml; Total Contrast Delivered: 87.0 ml; Total Saline Delivered: 79.8 ml Contrast bolus adequate for pulmonary arteries and aorta. RENAL FUNCTION: None required. The patient is less than 50 years old. RADIATION DOSE: CT Rad equipment meets quality standard of care and radiation dose reduction techniq ues were employed. CTDIvol: 16.5 - 27.0 mGy. DLP: 779 mGy-cm. . LIMITATIONS: None. FINDINGS: LUNGS AND PLEURA: No masses, infiltrates, or pneumothorax. No pleural effusions or pleura l calcifications. AORTA AND GREAT VESSELS: No aneurysm. No dissection. HEART: No pericardial effusion. No significant coronary artery calcifications. PULMONARY ARTERIES: No emboli visualized in the main pulmonary arteries or the segmental branches. HILAR AND MEDIASTINAL STRUCTURES: No identified masses or abnormal nodes. HARDWARE: None in the chest. UPPER ABDOMEN: Hiatal hernia. Limited exam. THYROID AND OTHER SOFT TISSUES: No masses. No adenopathy. BONES: No acute or significant finding. 3D MIPS: Confirm above findings. OTHER: No other significant finding. IMPRESSION: NORMAL CTA OF THE CHEST. NO PULMONARY EMBOLI. COMMENT: Quality ID # [id number]: Final reports with documentation of one or more dose reduction techniques (e.g., Automated exposure control, adjustment of the mA and/or kV according to patient size, use of iterative reconstruction technique) TECHNICAL DOCUMENTATION: JOB ID: [id number] [employer]- All Rights Reserved Reading location - IP/workstation name: [email or web address]
--- NOTE | 2018-04-26 12:44 | ER Document Report ---
ED General - General Chief Complaint: Shortness Of Breath Stated Complaint: SHORTNESS OF BREATH Time Seen by Provider: 04/26/18 10:13 Mode of Arrival: Ambulatory Information source: Patient Notes: This is a 32-year-old female who has a history of Crohn's disease and exertion triggered asthma who is 27 weeks with twin gestations and is been experiencing dyspnea on exertion, tachycardia. The patient's symptoms have been for the last month and are clearly exacerbated with movement. She has been seen by her fork operator (Dr. Smith) and started on metoprolol and she has had an outpatient echo. She was sent in by her OB doctor (Dr. Vega) for CTA of the chest to rule out pulmonary embolism. The patient was given a nebulizer treatment in the emergency room triage area but states that it did not do much. However, currently the patient states she does not really have much shortness of breath. She states that her symptoms really are just when she is moving around a lot. She denies any chest pain. She denies any abdominal pain. She denies any lower extremity swelling or any calf pain. She denies any fever or chills. TRAVEL OUTSIDE OF THE [place] IN LAST 30 DAYS: No - HPI Onset: Last week Onset/Duration: Gradual Quality of pain: No pain Severity: None Pain Level: Denies Associated symptoms: Shortness of breath. denies: Chest pain Exacerbated by: Movement Relieved by: Denies Similar symptoms previously: Yes Recently seen / treated by doctor: Yes - Related Data Allergies/Adverse Reactions: buspirone [Buspirone] Allergy (Verified 04/26/18 09:42) citalopram hydrobromide [From Celexa] Allergy (Verified 04/26/18 09:42) latex Allergy (Verified 04/26/18 09:42) metoclopramide [From Reglan] Adverse Reaction (Verified 04/26/18 09:42) Past Medical History - General Information source: Patient - Social History Smoking Status: Never Smoker Cigarette use (# per day): No Chew tobacco use (# tins/day): No Frequency of alcohol use: None Drug Abuse: None Lives with: Family Family History: Reviewed & Not Pertinent Patient has suicidal ideation: No Patient has homicidal ideation: No - Past Medical History Cardiac Medical History: Reports: None Pulmonary Medical History: Reports: Hx Asthma EENT Medical History: Reports: None Neurological Medical History: Reports: None Endocrine Medical History: Reports: None Renal/ Medical History: Denies: Hx Peritoneal Dialysis GI Medical History: Reports: Hx Crohn's Disease, Hx Gastroesophageal Reflux Disease Past Surgical History: Reports: Hx Adenoidectomy, Hx Tonsillectomy Review of Systems - Review of Systems Constitutional: denies: Chills, Fever EENT: No symptoms reported Cardiovascular: See HPI Respiratory: No symptoms reported Gastrointestinal: No symptoms reported Genitourinary: No symptoms reported Female Genitourinary: No symptoms reported Musculoskeletal: No symptoms reported Skin: No symptoms reported Hematologic/Lymphatic: No symptoms reported Neurological/Psychological: No symptoms reported Physical Exam - Vital signs Vitals: Temp Pulse Resp BP Pulse Ox 98.1 F 111 H 24 H 115/71 98 04/26/18 09:52 04/26/18 09:52 04/26/18 09:52 04/26/18 09:52 04/26/18 09:52 Notes: Physical exam: GENERAL: Patient is alert and oriented x3, she is in no distress and her vital signs are stable. HEAD: Atraumatic, normocephalic. EYES: Pupils equal round and reactive to light, extraocular movements intact, sclera anicteric, conjunctiva are normal. ENT: TMs normal, nares patent, oropharynx clear without exudates. Moist mucous membranes. NECK: Normal range of motion, supple without obvious mass or JVD. LUNGS: Breath sounds clear to auscultation bilaterally and equal. No wheezes rales or rhonchi. HEART: Regular rate and rhythm without murmurs, rubs or gallops. ABDOMEN: Consistent with 27-week twin gestations. Soft, normoactive bowel sounds. No tenderness to palpation. No guarding, no rebound. No masses appreciated. EXTREMITIES: Normal range of motion, no pitting or edema. No clubbing or cyanosis. There is no calf pain. There is no asymmetry in the lower extremities. Her distal cap refill looks good. NEUROLOGICAL: Cranial nerves II through XII grossly intact. Normal speech, moving all extremities. PSYCH: Normal mood, normal affect. SKIN: Warm, Dry, normal turgor, no rashes or lesions noted. Course - Re-evaluation Re-evalutation: 04/26/18 12:44 Note: I had a number sedation with the patient prior to the CT going over the risks of radiation on herself as well as the babies versus the risk of not diagnosing pulmonary embolism. After the discussion, she is agreed to do the CT as planned. I discussed the results of the labs as well as the CTA with Dr. Coleman who is covering for Dr. Vega. He suggested that the patient's symptoms may be due to decreased lung volume given the twin gestations. He is okay with the plan to have the patient follow-up with the fork operator (she has an appointment with Dr. Smith tomorrow). The patient appears comfortable now and I will give her a copy of the CT results as well as the labs to bring to Dr. Parekh' s office. 04/26/18 12:46 - Vital Signs Vital signs: Temp Pulse Resp BP Pulse Ox 98.1 F 99 18 113/70 100 04/26/18 09:52 04/26/18 12:58 04/26/18 12:58 04/26/18 12:58 04/26/18 12:58 - Laboratory Result Diagrams: 04/26/18 10:25 04/26/18 10:25 Laboratory results interpreted by me: 04/26/18 04/26/18 04/26/18 10:25 10:25 10:25 WBC 11.1 H RBC 3.70 L Hgb 9.1 L Hct 27.4 L MCV 74 L MCH 24.7 L RDW 16.5 H D-Dimer 1.19 H Sodium 135.9 L Potassium 3.5 L Carbon Dioxide 21 L Creatinine 0.41 L Glucose 130 H - Diagnostic Test Radiology reviewed: Image reviewed, Reports reviewed - CTA of the chest shows no evidence of pulmonary emboli Discharge - Discharge Clinical Impression: Dyspnea on exertion, Twin gestations Condition: Stable Disposition: HOME, SELF-CARE Additional Instructions: As we discussed, the CT showed no evidence of embolism. I do want you to follow -up with Dr. Smith tomorrow as planned. Bring a copy of today's labs and CT report with you when you go to that appointment. Return to the emergency room for any worsening shortness of breath, any chest pain, any swelling of the lower legs or pain to the lower legs or any concerns or getting worse. Forms: Return to Work Referrals: LYNDA VEGA MD [Primary Care Provider] - Follow up in 3-5 days
[2018-04-26 12:59] VITALS: BP 113/70
[2018-04-28 14:40] LABS: PROTEIN C ANTIGEN 174 % (60-150)
[2018-04-29 17:26] LABS: PROTEIN C ACTIVITY 194 % (73-180); PROTEIN S FREE 36 % (57-157); PROTEIN S FUNCTIONAL 20 % (63-140); PROTEIN S TOTAL 63 % (60-150)
== END 2018-04-26 12:58 | disposition home or self-care (01) ==
LOC: ER 09:39
DX: O99.512 Diseases of the respiratory system complicating pregnancy, second trimester (principal); O30.002 Twin pregnancy, unspecified number of placenta and unspecified number of amniotic sacs, second trimester; R06.00 Dyspnea, unspecified; J45.909 Unspecified asthma, uncomplicated; Z3A.27 27 weeks gestation of pregnancy
CPT/HCPCS: 94640; 99285; 36415; 85305; 85306; 85302; 85027; 80048; 85220; 85379; 71275; J3490

== ENCOUNTER 2018-05-08 10:27 | Outpatient (CLI) | payer OTHER, MEDICAID ==
[2018-05-08] MEDS ORDERED: DEXTROSE 5%-LACTATED RINGERS 1,000 ML IV PRN (10:54)
[2018-05-08] MEDS ORDERED: DEXTROSE 5%-LACTATED RINGERS 500 ML IV ONE (10:54)
[2018-05-08] MEDS ORDERED: MAGNESIUM SULFATE 4 GM/100 ML RTUPB IV ONE (10:57)
[2018-05-08] MEDS ORDERED: PENICILLIN G-K 5 MILLION UNIT VIAL IV ONE (11:11)
[2018-05-08] MEDS ORDERED: BETAMET ACET/BETAMET NA INJ 6 MG/1 ML IM ONE (11:15)
[2018-05-08 11:26] LABS: APPEARANCE,URINE CLOUDY; BILIRUBIN,URINE NEGATIVE (NEGATIVE); COLOR,URINE YELLOW; GLUCOSE, URINE NEGATIVE (NEGATIVE); KETONES,URINE NEGATIVE (NEGATIVE); LEUKOCYTE ESTERASE,URINE MODERATE (NEGATIVE); NITRITE,URINE NEGATIVE (NEGATIVE); PROTEIN,URINE 30 mg/dL (NEGATIVE); URINE SPECIFIC GRAVITY 1.024; UROBILINOGEN,URINE NEGATIVE mg/dL (<2.0)
[2018-05-08 11:45] LABS: URINE AMPHETAMINES SCREEN NEGATIVE; URINE BARBITURATES SCREEN NEGATIVE; URINE BENZODIAZEPINES SCREEN NEGATIVE; URINE COCAINE SCREEN NEGATIVE; URINE MARIJUANA (THC) SCREEN NEGATIVE; URINE METHADONE SCREEN NEGATIVE; URINE PHENCYCLIDINE SCREEN NEGATIVE
[2018-05-08] MEDS ORDERED: MAGNESIUM SULFATE 20 GM/500 ML RTUINJ IV PRN (12:00)
== END 2018-05-08 11:55 | disposition home or self-care (01) ==
LOC: LC 10:27
PROVIDERS: ATTEND Obstetrics & Gynecology
PROC: 4A1HXCZ Monitoring of Products of Conception, Cardiac Rate, External Approach (ICD-10-PCS; principal; 2018-05-08)
DX: O47.03 False labor before 37 completed weeks of gestation, third trimester (principal); O99.283 Endocrine, nutritional and metabolic diseases complicating pregnancy, third trimester; E86.0 Dehydration; Z3A.28 28 weeks gestation of pregnancy
CPT/HCPCS: 80307; 81001

== ENCOUNTER → 2018-05-27 | Outpatient (CLI) | payer MEDICAID, OTHER ==
[~2018-05-27] MED LIST: BETAMET ACET/BETAMET NA INJ 6 MG/1 ML ONE; MAG HYDROX/AL HYDROX/SIMETH SUSP 30 ML UDCUP ONE; MAG HYDROX/AL HYDROX/SIMETH SUSP 30 ML UDCUP PO ONE; MAGNESIUM SULFATE 20 GM/500 ML RTUINJ IV ONE; MAGNESIUM SULFATE 4 GM/100 ML RTUPB IV ONE; PANTOPRAZOLE SODIUM 40 MG VIAL IV ONE; PENICILLIN G-K 5 MILLION UNIT VIAL ONE
[2018-05-27 08:47] LABS: APPEARANCE,URINE CLOUDY; BILIRUBIN,URINE NEGATIVE (NEGATIVE); COLOR,URINE YELLOW; GLUCOSE, URINE NEGATIVE (NEGATIVE); KETONES,URINE NEGATIVE (NEGATIVE); LEUKOCYTE ESTERASE,URINE TRACE (NEGATIVE); NITRITE,URINE NEGATIVE (NEGATIVE); PROTEIN,URINE 100 mg/dL (NEGATIVE); UROBILINOGEN,URINE NEGATIVE mg/dL (<2.0)
[2018-05-27 09:00] LABS: URINE AMPHETAMINES SCREEN NEGATIVE; URINE BARBITURATES SCREEN NEGATIVE; URINE BENZODIAZEPINES SCREEN NEGATIVE; URINE COCAINE SCREEN NEGATIVE; URINE MARIJUANA (THC) SCREEN NEGATIVE; URINE METHADONE SCREEN NEGATIVE; URINE PHENCYCLIDINE SCREEN NEGATIVE
--- NOTE | 2018-05-27 09:47 | PDOC TRANSFER SUMMARY ---
General Admission Date/PCP: LYNDA VEGA MD - Transfer Diagnosis (1) Twin gestation in third trimester Is this a current diagnosis for this admission?: Yes (2) Premature rupture of membranes Is this a current diagnosis for this admission?: Yes - Transfer Medications Home Medications: Pnv No.95/Ferrous Fum/Folic AC [ Vitamin Tablet] 1 each PO DAILY Ranitidine HCl [Zantac] 150 mg PO DAILY 05/08/18 Transfer Medications: Current Medications Pantoprazole Sodium (Protonix Iv Inj 40 Mg Vial) 40 mg IV NOW ONE Stop: 05/27/18 09:32 Magnesium Sulfate 4 gm load then 2 gms per hour Celestone 12 mg IM x 1 now and repeat in 24 hours Penicillin G 5 million units q 4 hours - Allergies Allergies/Adverse Reactions: buspirone [Buspirone] Allergy (Verified 04/26/18 09:42) citalopram hydrobromide [From Celexa] Allergy (Verified 04/26/18 09:42) latex Allergy (Verified 04/26/18 09:42) metoclopramide [From Reglan] Adverse Reaction (Verified 04/26/18 09:42) Hospital Course Hospital Course: @ 30 w 6 d EGA with di/di twins presented with gross rupture of membranes. No contractions. Has h/o chrons disease and has intermittently taken prednisone this . Also taking Metoprolol for palpatations. Baby A has had polyhydramnios. Baby A is vertex and Baby B is transverse Physical Exam Vital Signs: Intake & Output 05/26/18 05/27/18 05/28/18 06:59 06:59 06:59 Weight 123.3 kg General appearance: PRESENT: no acute distress, cooperative, mild distress GI/Abdominal exam: PRESENT: soft - gravid, nontender Results Laboratory Results: 05/27/18 08:29 Urine Color YELLOW Urine Appearance CLOUDY Urine pH 7.0 Ur Specific [place] 1.010 Urine Protein 100 H Urine Glucose (UA) NEGATIVE Urine Ketones NEGATIVE Urine Blood LARGE H Urine Nitrite NEGATIVE Ur Leukocyte Esterase TRACE H Urine WBC (Auto) 6 Urine RBC (Auto) 123 Plan Discharge Plan: Dr. Ashton of [facility] accepted patient as transfer for higher level of NICU care due to her early gestational age prior to 32 weeks. Magnesium sulfate for neuroprotection and tocolysis, Celestone for lung maturity and Penicillin for latency started. [facility] notified for transport.
== END ==
LOC: LC 08:15
PROVIDERS: ATTEND Obstetrics & Gynecology Gynecology
DX: Z34.93 Encounter for supervision of normal pregnancy, unspecified, third trimester (principal); Z3A.30 30 weeks gestation of pregnancy
CPT/HCPCS: 96372; 81001; 80307; 84112; J3475 ×2; J3490; J2540; J0702; S0164

== ENCOUNTER 2018-06-28 09:44 | Emergency (ER) | payer MEDICAID ==
--- NOTE | 2018-06-28 10:35 | ER Document Report ---
ED Medical Screen (RME) - General Chief Complaint: Arm Pain Stated Complaint: RIGHT ARM PAIN Time Seen by Provider: 06/28/18 10:30 TRAVEL OUTSIDE OF THE [place] IN LAST 30 DAYS: No - HPI Notes: 06/28/18 10:34 Patient is a 33-year-old female that presents to the emergency department for chief complaint of right shoulder pain. Patient had a on 05/28/18 and subsequently developed pulmonary embolism while in the hospital. She states her PEs were all on the right side. She has been taking Lovenox daily and denies missing any doses. She is endorsing a sharp pain in her right upper chest and s houlder which feels similar to her previous PEs. She states that pain had completely resolved after initial diagnosis of the PEs and recently returned. ROS: GENERAL: Denies fever of chills CV: chest pain PHYSICAL EXAMINATION: GENERAL: Well-appearing, well-nourished and in no acute distress. HEAD: Atraumatic, normocephalic. EYES: Pupils equal round extraocular movements intact, conjunctiva are normal. ENT: Nares patent NECK: Normal range of motion LUNGS: No respiratory distress Musculoskeletal: Normal range of motion NEUROLOGICAL: Normal speech, normal gait. PSYCH: Normal mood, normal affect. MDM: Patient seen and examined for rapid initial assessment. Vital signs reviewed. A comprehensive ED assessment and evaluation of the patient, analysis of test results and completion of the medical decision making process will be conducted by additional ED providers. - Related Data Allergies/Adverse Reactions: buspirone [Buspirone] Allergy (Verified 06/28/18 09:47) citalopram hydrobromide [From Celexa] Allergy (Verified 06/28/18 09:47) latex Allergy (Verified 06/28/18 09:47) metoclopramide [From Reglan] Adverse Reaction (Verified 06/28/18 09:47) Past Medical History Pulmonary Medical History: Reports: Hx Asthma Renal/ Medical History: Denies: Hx Peritoneal Dialysis GI Medical History: Reports: Hx Crohn's Disease, Hx Gastroesophageal Reflux Disease Past Surgical History: Reports: Hx Adenoidectomy, Hx Tonsillectomy Physical Exam - Vital signs Vitals: Temp Pulse Resp BP Pulse Ox 98.0 F 112 H 20 133/82 H 96 06/28/18 09:50 06/28/18 09:50 06/28/18 09:50 06/28/18 09:50 06/28/18 09:50 Course - Vital Signs Vital signs: Temp Pulse Resp BP Pulse Ox 98.0 F 112 H 20 133/82 H 96 06/28/18 09:50 06/28/18 09:50 06/28/18 09:50 06/28/18 09:50 06/28/18 09:50 Doctor's Discharge - Discharge Referrals: LYNDA VEGA MD [Primary Care Provider] - Follow up as needed
[2018-06-28] MEDS ORDERED: MORPHINE SULFATE 10 MG/ML INJ IV ONE (10:49)
--- NOTE | 2018-06-28 10:58 | RADIOLOGY REPORT (SQ) ---
EXAM DESCRIPTION: CHEST SINGLE VIEW COMPLETED DATE/TIME: 06/28/2018 10:47 am REASON FOR STUDY: chest pain COMPARISON: 11/27/2015 EXAM PARAMETERS: NUMBER OF VIEWS: One view. TECHNIQUE: Single frontal radiographic view of the chest acquired. RADIATION DOSE: NA LIMITATIONS: None. FINDINGS: LUNGS AND PLEURA: Moderate right pleural effusion and associated atelectasis or consolidat ion MEDIASTINUM AND HILAR STRUCTURES: No masses. Contour normal. HEART AND VASCULAR STRUCTURES: Heart normal in size. Normal vasculature. BONES: No acute findings. HARDWARE: None in the chest. OTHER: No other significant finding. IMPRESSION: Moderate right pleural effusion and associated atelectasis or consolidation. TECHNICAL DOCUMENTATION: JOB ID: [id number] [employer]- All Rights Reserved Reading location - IP/workstation name: [email or web address]
[2018-06-28] MEDS ORDERED: MORPHINE SULFATE 10 MG/ML INJ ONE (10:59)
[2018-06-28 11:35] LABS: ABSOLUTE BASOPHILS # (AUTO) 0.1 10^3/uL (0.0-0.2); ABSOLUTE EOSINOPHILS # (AUTO) 0.1 10^3/uL (0.0-0.6); ABSOLUTE LYMPHOCYTES (AUTO) 1.8 10^3/uL (0.5-4.7); ABSOLUTE MONOCYTES (AUTO) 0.5 10^3/uL (0.1-1.4); ABSOLUTE NEUT (AUTO) 4.4 10^3/uL (1.7-8.2); BASOPHILS % (AUTO) 0.8 % (0-2); EOSINOPHILS % (AUTO) 1.9 % (0-6); HEMATOCRIT 32.2 % (36.0-47.0); HEMOGLOBIN 10.2 g/dL (12.0-15.5); LYMPHOCYTES % (AUTO) 26.5 % (13-45); MEAN CORPUSCULAR HEMOGLOBIN 22.1 pg (27.0-33.4); MEAN CORPUSCULAR HGB CONC 31.7 g/dL (32.0-36.0); MEAN CORPUSCULAR VOLUME 70 fl (80-97); MONOCYTES % (AUTO) 7.1 % (3-13); PLATELET COUNT 473 10^3/uL (150-450); RED BLOOD COUNT 4.62 10^6/uL (3.72-5.28); RED CELL DISTRIBUTION WIDTH 20.3 % (11.5-14.0); SEGMENTED NEUTROPHILS % (AUTO) 63.7 % (42-78); TOTAL CELLS COUNTED % (AUTO) 100 %
[2018-06-28 11:59] LABS: ANION GAP 10 (5-19); BLOOD UREA NITROGEN 6 mg/dL (7-20); CALCIUM 9.4 mg/dL (8.4-10.2); CARBON DIOXIDE 25 mmol/L (22-30); CHLORIDE 105 mmol/L (98-107); GLUCOSE 87 mg/dL (75-110); POTASSIUM 4.5 mmol/L (3.6-5.0); SODIUM 139.7 mmol/L (137-145)
--- NOTE | 2018-06-28 12:27 | ER Document Report ---
ED General - General Chief Complaint: Arm Pain Stated Complaint: RIGHT ARM PAIN Time Seen by Provider: 06/28/18 10:30 Notes: Patient is a 33-year-old female with history of recent diagnosis of pulmonary embolism that presents to the emergency department for chief complaint of right shoulder chest and back pain. Patient states that 8 days ago she was diagnosed with acute pulmonary embolism, she was seen in [place] at that time, she was admitted to the hospital, and started on Lovenox. She is been compliant with her medication according to her. But she states that over the past 24 hours she has had pain in her right shoulder, which she describes as a 9 out of 10, seems to be worse with taking a deep breath as well, she describes the pain as sharp and aching. She was having pleuritic pain and that is why she initially was worked up for PE, but the pain is little bit different now. She denies feeling short of breath or having difficulty breathing. Denies having any lightheadedness, dizziness or feeling the sensation of passing out, she also denies any any fevers, chills, cough, nausea or vomiting. She recently gave on 05/28/2018 by . Past Medical History: Pulmonary embolism, Crohn's disease Past Surgical History: Tonsillectomy, Social History: Denies tobacco, alcohol or drug use. Family History: Reviewed and noncontributory for presenting illness Allergies: Reviewed, see documented allergy list. REVIEW OF SYSTEMS: Other than noted above, the 12 point review of systems was reviewed with the patient and were negative, all pertinent findings are included in the HPI. PHYSICAL EXAMINATION: Vital signs reviewed, nursing noted reviewed. GENERAL: Well-appearing, well-nourished and appears uncomfortable HEAD: Atraumatic, normocephalic. EYES: Eyes appear normal, extraocular movements intact, sclera anicteric, conjunctiva are normal. ENT: nares patent, oropharynx clear without exudates. Moist mucous membranes. NECK: Normal range of motion, supple without lymphadenopathy LUNGS: Mild diminished lung sounds on the right lower field, compared to other lung cool which are otherwise clear to auscultation bilaterally and equal. No wheezes rales or rhonchi. HEART: Heart rate tachycardic, regular rhythm, no audible murmurs ABDOMEN: Soft, nontender, normoactive bowel sounds. No rebound, guarding, or rigidity. No masses appreciated. EXTREMITIES: Nontender, good range of motion, no pitting or edema. NEUROLOGICAL: No focal neurological deficits. Moves all extremities sp ontaneously Motor and sensory grossly intact on exam. PSYCH: Normal mood, normal affect. SKIN: Warm, Dry, normal turgor, no rashes or lesions noted on exposed skin TRAVEL OUTSIDE OF THE [place] IN LAST 30 DAYS: No - Related Data Allergies/Adverse Reactions: buspirone [Buspirone] Allergy (Verified 06/28/18 10:37) citalopram hydrobromide [From Celexa] Allergy (Verified 06/28/18 10:37) latex Allergy (Verified 06/28/18 10:37) metoclopramide [From Reglan] Adverse Reaction (Verified 06/28/18 10:37) Past Medical History - Social History Smoking Status: Never Smoker Chew tobacco use (# tins/day): No Frequency of alcohol use: None Drug Abuse: None Family History: Reviewed & Not Pertinent Patient has suicidal ideation: No Patient has homicidal ideation: No Pulmonary Medical History: Reports: Hx Asthma Renal/ Medical History: Denies: Hx Peritoneal Dialysis GI Medical History: Reports: Hx Crohn's Disease, Hx Gastroesophageal Reflux Disease Past Surgical History: Reports: Hx Adenoidectomy, Hx Section, Hx Tonsillectomy Physical Exam - Vital signs Vitals: Temp Pulse Resp BP Pulse Ox 98.0 F 112 H 20 133/82 H 96 06/28/18 09:50 06/28/18 09:50 06/28/18 09:50 06/28/18 09:50 06/28/18 09:50 Course - Re-evaluation Re-evalutation: Patient seen and examined vital signs reviewed. Laboratory data and imaging were ordered as appropriate for the patient's presenting symptoms and complaint, with consideration of any critical or life threatening conditions that may be associated with their obtained history and exam as noted above. Patient was treated with IV morphine for the pain she was having Results were reviewed when available and demonstrated CT angiogram demonstrated right-sided pulmonary emboli and subsegmental branches of the right pulmonary artery, this was compared with her previous CTA performed a [facility], which at that time demonstrated saddle embolus over the right main pulmonary artery, which is not present on the CT, which likely represents decrease the clot burden, the patient did have a moderate pleural effusion, she had a small pleural effusion on her prior CTA performed a week ago, I would expect this, given the degree of clot burden, secondary to inflammation in the PE the patient currently has, she is on Lovenox, and has been compliant with this medication. She is not hypoxic, she was mildly tachycardic on presentation, however that improved with treatment of her pain. EKG did not demonstrate right heart strain, her blood work demonstrated negative troponin, and normal BNP, she was told by echocardiogram she did have evidence of right heart strain which was present on the CTA, and she is to follow-up with her primary care regarding this, and any other specialist recommended, patient was still having pain on my reevaluation, therefore she was given a dose of IV Dilaudid, which did improve her pain, I suspect the patient is having pleurisy secondary to her effusion versus pulmonary infarcts, that are healing, but appears she has decreased clot burden and I feel that the patient can be discharged, based on stable vital signs, no evidence of right heart strain, and to continue her current Lovenox, patient will be discharged home with a prescription for Percocet, and to follow-up. She is advised though if her symptoms worsen in any way, or not improving, that she should return to the emergency department which she is agreeable to. Results were discussed with the patient at this point, after careful consideration I feel that that patient can be discharged from the emergency department, the patient was educated treatments and reasons to return to the emergency department based on their presumed diagnosis as noted above, they were advised to followup with a primary care physician in 2-3 days. Patient was agreeable to plan of care. *Note is created using voice recognition software and may contain spelling, syntax or grammatical errors. Laboratory 06/28/18 06/28/18 06/28/18 11:16 11:16 11:16 WBC 7.0 RBC 4.62 Hgb 10.2 L Hct 32.2 L MCV 70 L MCH 22.1 L MCHC 31.7 L RDW 20.3 H Plt Count 473 H Seg Neutrophils % 63.7 Lymphocytes % 26.5 Monocytes % 7.1 Eosinophils % 1.9 Basophils % 0.8 Absolute Neutrophils 4.4 Absolute Lymphocytes 1.8 Absolute Monocytes 0.5 Absolute Eosinophils 0.1 Absolute Basophils 0.1 Sodium 139.7 Potassium 4.5 Chloride 105 Carbon Dioxide 25 Anion Gap 10 BUN 6 L Creatinine 0.62 Est GFR ( Amer) > 60 Est GFR (Non-Af Amer) > 60 Glucose 87 Calcium 9.4 Troponin I < 0.012 NT-Pro-B Natriuret Pep 06/28/18 11:16 WBC RBC Hgb Hct MCV MCH MCHC RDW Plt Count Seg Neutrophils % Lymphocytes % Monocytes % Eosinophils % Basophils % Absolute Neutrophils Absolute Lymphocytes Absolute Monocytes Absolute Eosinophils Absolute Basophils Sodium Potassium Chloride Carbon Dioxide Anion Gap BUN Creatinine Est GFR ( Amer) Est GFR (Non-Af Amer) Glucose Calcium Troponin I NT-Pro-B Natriuret Pep 55 Chest X-Ray 06/28/18 10:33 IMPRESSION: Moderate right pleural effusion and associated atelectasis or consolidation. Chest/Abdomen CTA 06/28/18 12:27 IMPRESSION: 1. Positive examination for pulmonary embolism with lobar to sub segmental embolus in the right lower lobe and additional subsegmental embolus in the right middle and right upper lobes. No definite embolus in the left lung. There is moderate associated right pleural effusion and associated atelectasis or consolidation. Findings are in keeping with stated recent diagnosis of pulmonary embolism although new from prior comparison examination dated 04/26/2018. 2. Enlargement of the RV:LV ratio to 1.2, concerning for right heart strain in the setting of pulmonary embolism. Correlate with clinical and echocardi ographic findings. - Vital Signs Vital signs: Temp Pulse Resp BP Pulse Ox 98.0 F 112 H 20 133/82 H 97 06/28/18 09:50 06/28/18 09:50 06/28/18 14:00 06/28/18 09:50 06/28/18 14:00 - Laboratory Result Diagrams: 06/28/18 11:16 06/28/18 11:16 Laboratory results interpreted by me: 06/28/18 06/28/18 11:16 11:16 Hgb 10.2 L Hct 32.2 L MCV 70 L MCH 22.1 L MCHC 31.7 L RDW 20.3 H Plt Count 473 H BUN 6 L Critical Care Note - Critical Care Note Total time excluding time spent on procedures (mins): 35 Comments: Critical care time 35 minutes exclusive from separate billable procedures for a patient requiring complex medical decision making, and high potential for clinical deterioration. In a patient with acute pulmonary embolism, review of prior records, and close monitoring and observation with high potential for deterioration. Time spent obtaining history from patient or surrogate, discussions with consultants, development of treatment plan with patient or surrogate, evaluation of patient's response to treatment, examination of patient, ordering and performing treatments and interventions, ordering and review of laboratory studies, re-evaluation of patient's condition, ordering and review of radiographic studies and review of old charts Discharge - Discharge Clinical Impression: Pleural effusion Pulmonary embolism Qualifiers: Pulmonary embolism type: unspecified Chronicity: acute Acute cor pulmonale presence: without acute cor pulmonale Qualified Code(s): I26.99 - Other pulmonary embolism without acute cor pulmonale Shoulder pain Qualifiers: Chronicity: acute Laterality: right Qualified Code(s): M25.511 - Pain in right shoulder Condition: Stable Disposition: HOME, SELF-CARE Instructions: Pleurisy ([facility]) Additional Instructions: Please continue taking the Lovenox as previously prescribed, you may take the m edication for pain, continue to take deep breaths, and it would benefit you to sleep with several pillows and angle, to help with his pain as well. Please follow-up with your primary care physician, and any specialist he may have been recommended to follow-up with primary initial visit from [facility]. If you have any worsening of your symptoms, or symptoms are not improving, do not hesitate to return to the emergency department. Prescriptions: Oxycodone HCl/Acetaminophen [Percocet 5-325 mg Tablet] 1 tab PO Q8H PRN #15 tab PRN Reason: shoulder pain Referrals: LYNDA VEGA MD [Primary Care Provider] - Follow up in 3-5 days
--- NOTE | 2018-06-28 12:49 | EKG REPORT ---
SEVERITY:- ABNORMAL ECG - SINUS RHYTHM NONSPECIFIC T ABNORMALITIES, INFERIOR LEADS : Confirmed by: Mino Garcia MD 28-Jun-2018 12:48:25
--- NOTE | 2018-06-28 13:13 | RADIOLOGY REPORT (SQ) ---
EXAM DESCRIPTION: CTA CHEST COMPLETED DATE/TIME: 06/28/2018 12:58 pm REASON FOR STUDY: tachycardia, right chest pain, recent PE diagnosis COMPARISON: Same day chest radiograph, prior CT pulmonary angiogram, 04/26/2018 TECHNIQUE: CT scan of the chest performed using helical scanning technique with dynamic intravenous contrast injection. Images reviewed with lung, soft tissue and bone windows. Reconstructed coronal and sagittal MPR images reviewed. Additional 3 dimensional post-processing performed to develop Maximal Intensity Projection images (LA P). All images stored on PACS. All CT scanners at this facility use dose modulation, iterative reconstruction, and/or weight based d osing when appropriate to reduce radiation dose to as low as reasonably achievable (ALARA). [facility]: Dose Right [facility]: CareDose [facility]: Dose Right [facility]: Teradose 4D [facility]: bContext CONTRAST TYPE AND DOSE: 86 mL Omnipaque 350 IV Contrast bolus optimized for the pulmonary arteries. Not diagnostic for the aorta. RENAL FUNCTION: None required. The patient is less than 50 years old. RADIATION DOSE: CT Rad equipment meets quality standard of care and radiation dose reduction techniq ues were employed. CTDIvol: 24.8 - 27.6 mGy. DLP: 982 mGy-cm. . LIMITATIONS: None. FINDINGS: LUNGS AND PLEURA: Moderate right pleural effusion with associated atelectasis or consolida tion. AORTA AND GREAT VESSELS: No aneurysm. Contrast bolus not optimized for the aorta. HEART: No pericardial effusion. No significant coronary artery calcifications. RV:LV ratio 1.2. PULMONARY ARTERIES: Positive examination for pulmonary embolism with lobar to subsegmental embolus in the right lower lobe and additional subsegmental embolus in the right middle and right upper lobes. There is no definite embolus in the left lung. HILAR AND MEDIASTINAL STRUCTURES: No identified masses or abnormal nodes. HARDWARE: None in the chest. UPPER ABDOMEN: No significant findings. Limited exam. THYROID AND OTHER SOFT TISSUES: No masses. No adenopathy. BONES: No acute or significant finding. 3D MIPS: Confirm above findings. OTHER: No other significant finding. IMPRESSION: 1. Positive examination for pulmonary embolism with lobar to sub segmental embolus in t he right lower lobe and additional subsegmental embolus in the right middle and right upper lobes. N o definite embolus in the left lung. There is moderate associated right pleural effusion and associa italo atelectasis or consolidation. Findings are in keeping with stated recent diagnosis of pulmonary embolism although new from prior comparison examination dated 04/26/2018. 2. Enlargement of the RV:LV ratio to 1.2, concerning for right heart strain in the setting of pulmon pernell embolism. Correlate with clinical and echocardiographic findings. COMMENT: Quality ID # [id number]: Final reports with documentation of one or more dose reduction techniques (e.g., Automated exposure control, adjustment of the mA and/or kV according to patient size, use of iterative reconstruction technique) TECHNICAL DOCUMENTATION: JOB ID: [id number] [employer]- All Rights Reserved Reading location - IP/workstation name: [id number]
[2018-06-28] MEDS ORDERED: HYDROMORPHONE HCL INJ/PF 2 MG/ML AMPULE IV ONE (13:45)
[2018-06-28 15:06] VITALS: BP 131/88
== END 2018-06-28 16:42 | disposition home or self-care (01) ==
LOC: ER 09:44
DX: O88.23 Thromboembolism in the puerperium (principal); O99.53 Diseases of the respiratory system complicating the puerperium; J90 Pleural effusion, not elsewhere classified; J45.909 Unspecified asthma, uncomplicated; O90.89 Other complications of the puerperium, not elsewhere classified; M25.511 Pain in right shoulder; M54.9 Dorsalgia, unspecified; R07.9 Chest pain, unspecified; R00.0 Tachycardia, unspecified; O99.43 Diseases of the circulatory system complicating the puerperium; I51.7 Cardiomegaly; Z98.890 Other specified postprocedural states; Z91.040 Latex allergy status; Z88.8 Allergy status to other drugs, medicaments and biological substances
CPT/HCPCS: 93005; 99285; 96374; 96375; 36415; 85025; 80048; 84484; 83880; 71045; 71275; 93010; J2270; J1170

== ENCOUNTER 2018-07-07 07:33 | Emergency (ER) | payer MEDICAID ==
[2018-07-07] MEDS ORDERED: KETOROLAC TROMETHAMINE INJ/PF 30 MG/1 ML SDV IV ONE (08:30)
[2018-07-07] MEDS ORDERED: LIDOCAINE 5% (700 MG) TRANSDERMAL ADH..PATCH TP ONE (08:30)
--- NOTE | 2018-07-07 09:02 | RADIOLOGY REPORT (SQ) ---
EXAM DESCRIPTION: CHEST 2 VIEWS COMPLETED DATE/TIME: 07/07/2018 8:50 am REASON FOR STUDY: sob COMPARISON: 06/28/2018 EXAM PARAMETERS: NUMBER OF VIEWS: two views TECHNIQUE: Digital Frontal and Lateral radiographic views of the chest acquired. RADIATION DOSE: NA LIMITATIONS: none FINDINGS: LUNGS AND PLEURA: Significant interval decrease in previously seen right pleural effusion, now small. No new airspace opacity. MEDIASTINUM AND HILAR STRUCTURES: No masses or contour abnormalities. HEART AND VASCULAR STRUCTURES: Heart normal size. No evidence for failure. BONES: No acute findings. HARDWARE: None in the chest. OTHER: No other significant finding. IMPRESSION: Significant interval decrease in previously seen right pleural effusion, now small. No n ew airspace opacity. TECHNICAL DOCUMENTATION: JOB ID: [id number] [employer]- All Rights Reserved Reading location - IP/workstation name: [email or web address]
[2018-07-07 09:57] LABS: ABSOLUTE BASOPHILS # (AUTO) 0.1 10^3/uL (0.0-0.2); ABSOLUTE EOSINOPHILS # (AUTO) 0.2 10^3/uL (0.0-0.6); ABSOLUTE LYMPHOCYTES (AUTO) 2.6 10^3/uL (0.5-4.7); ABSOLUTE MONOCYTES (AUTO) 0.5 10^3/uL (0.1-1.4); ABSOLUTE NEUT (AUTO) 4.8 10^3/uL (1.7-8.2); BASOPHILS % (AUTO) 1.2 % (0-2); EOSINOPHILS % (AUTO) 2.4 % (0-6); HEMATOCRIT 33.7 % (36.0-47.0); HEMOGLOBIN 10.4 g/dL (12.0-15.5); LYMPHOCYTES % (AUTO) 31.8 % (13-45); MEAN CORPUSCULAR HEMOGLOBIN 21.6 pg (27.0-33.4); MEAN CORPUSCULAR HGB CONC 30.9 g/dL (32.0-36.0); MEAN CORPUSCULAR VOLUME 70 fl (80-97); MONOCYTES % (AUTO) 6.2 % (3-13); PLATELET COUNT 489 10^3/uL (150-450); RED BLOOD COUNT 4.82 10^6/uL (3.72-5.28); RED CELL DISTRIBUTION WIDTH 20.3 % (11.5-14.0); SEGMENTED NEUTROPHILS % (AUTO) 58.4 % (42-78); TOTAL CELLS COUNTED % (AUTO) 100 %; WHITE BLOOD COUNT 8.2 10^3/uL (4.0-10.5)
[2018-07-07 09:59] LABS: INTERNATIONAL RATION (INR) 0.94; PROTHROMBIN TIME 13.1 SEC (11.4-15.4)
[2018-07-07 10:00] LABS: PARTIAL THROMBOPLASTIN TIME 49.8 SEC (23.5-35.8)
[2018-07-07 10:11] LABS: ALANINE AMINOTRANSFERASE 24 U/L (9-52); ALBUMIN 4.3 g/dL (3.5-5.0); ALKALINE PHOSPHATASE 102 U/L (38-126); ANION GAP 9 (5-19); ASPARTATE AMINO TRANSFERASE 23 U/L (14-36); BILIRUBIN,DIRECT 0.2 mg/dL (0.0-0.4); BILIRUBIN,TOTAL 0.4 mg/dL (0.2-1.3); BLOOD UREA NITROGEN 15 mg/dL (7-20); CALCIUM 9.7 mg/dL (8.4-10.2); CARBON DIOXIDE 27 mmol/L (22-30); CHLORIDE 104 mmol/L (98-107); CREATINE KINASE 27 U/L (30-135); GLUCOSE 87 mg/dL (75-110); LIPASE 134.4 U/L (23-300); POTASSIUM 4.4 mmol/L (3.6-5.0); SODIUM 140.1 mmol/L (137-145); TOTAL PROTEIN 7.6 g/dL (6.3-8.2)
[2018-07-07 10:28] LABS: CREATINE KINASE MB < 0.22 ng/mL (<4.55); TROPONIN I < 0.012 ng/mL
[2018-07-07] MEDS ORDERED: NORMAL SALINE 500 ML IV ONE (10:45)
[2018-07-07 13:07] LABS: APPEARANCE,URINE SLIGHTLY-CLOUDY; BILIRUBIN,URINE NEGATIVE (NEGATIVE); COLOR,URINE YELLOW; GLUCOSE, URINE NEGATIVE (NEGATIVE); KETONES,URINE NEGATIVE (NEGATIVE); LEUKOCYTE ESTERASE,URINE NEGATIVE (NEGATIVE); NITRITE,URINE NEGATIVE (NEGATIVE); PROTEIN,URINE 30 mg/dL (NEGATIVE); URINE SPECIFIC GRAVITY 1.033; UROBILINOGEN,URINE NEGATIVE mg/dL (<2.0)
--- NOTE | 2018-07-07 13:44 | ER Document Report ---
ED General - General Chief Complaint: Shortness Of Breath Stated Complaint: SHORT OF BREATH Time Seen by Provider: 07/07/18 08:15 TRAVEL OUTSIDE OF THE [place] IN LAST 30 DAYS: No - HPI Patient complains to provider of: Shortness of breath right flank pain right shoulder pain Notes: Patient coming in with a history of PE for continued right shoulder right flank pain and shortness of breath. Patient is currently on Lovenox injections for treatment of her PE. Patient has been seen before complaining of similar complaints patient states that they are still ongoing. Patient denies any fevers chills nausea vomiting diarrhea. Patient states she is compliant with her medications not missed any patient denies any left-sided pain denies any hemoptysis denies any chest pain or abdominal pain resting comfortably upon my evaluation. - Related Data Allergies/Adverse Reactions: buspirone [Buspirone] Allergy (Verified 07/07/18 07:36) citalopram hydrobromide [From Celexa] Allergy (Verified 07/07/18 07:36) latex Allergy (Verified 07/07/18 07:36) metoclopramide [From Reglan] Adverse Reaction (Verified 07/07/18 07:36) Past Medical History - Social History Smoking Status: Unknown if Ever Smoked Family History: Reviewed & Not Pertinent Patient has suicidal ideation: No Patient has homicidal ideation: No Pulmonary Medical History: Reports: Hx Asthma Renal/ Medical History: Denies: Hx Peritoneal Dialysis GI Medical History: Reports: Hx Crohn's Disease, Hx Gastroesophageal Reflux Disease Past Surgical History: Reports: Hx Adenoidectomy, Hx Section, Hx Tonsillectomy Review of Systems - Review of Systems Constitutional: No symptoms reported EENT: No symptoms reported Cardiovascular: No symptoms reported Respiratory: No symptoms reported Gastrointestinal: No symptoms reported Genitourinary: Flank pain - Right Female Genitourinary: No symptoms reported Musculoskeletal: Other - Right shoulder Skin: No symptoms reported Hematologic/Lymphatic: No symptoms reported Neurological/Psychological: No symptoms reported -: Yes All other systems reviewed and negative Physical Exam - Vital signs Vitals: Temp Pulse Resp BP Pulse Ox 98.1 F 94 16 112/78 98 07/07/18 07:37 07/07/18 07:37 07/07/18 07:37 07/07/18 07:37 07/07/18 07:37 Interpretation: Normal - General General appearance: Appears well, Alert - HEENT Head: Normocephalic, Atraumatic Eyes: Normal Pupils: PERRL - Respiratory Respiratory status: No respiratory distress Chest status: Nontender Breath sounds: Normal Chest palpation: Normal - Cardiovascular Rhythm: Regular Heart sounds: Normal auscultation Murmur: No - Abdominal Inspection: Normal Distension: No distension Bowel sounds: Normal Tenderness: Nontender Organomegaly: No organomegaly - Back Back: Normal, Nontender - Extremities General upper extremity: Normal inspection, Nontender, Normal color, Normal ROM, Normal temperature General lower extremity: Normal inspection, Nontender, Normal color, Normal ROM, Normal temperature, Normal weight bearing. No: Brenda's sign - Neurological Neuro grossly intact: Yes Cognition: Normal Orientation: AAOx4 [place] Coma Scale Eye Opening: Spontaneous Marielle Coma Scale Verbal: Oriented [place] Coma Scale Motor: Obeys Commands Marielle Coma Scale Total: 15 Speech: Normal Motor strength normal: LUE, RUE, LLE, RLE Sensory: Normal - Psychological Associated symptoms: Normal affect, Normal mood - Skin Skin Temperature: Warm Skin Moisture: Dry Skin Color: Normal Course - Re-evaluation Re-evalutation: 07/07/18 14:49 A brief review of the patient's medical records available in [place] was performed Did review the patient's CTA that was performed here last by Dr. Beltrán showing a decrease clot burden chest x-ray today shows a decrease in the pleural effusion. Laboratory studies otherwise not show any clear pathology for the patient's symptoms do feel that the patient's right shoulder pain is more muscle skeletal muscle strain I do feel that the patient's right flank pain that she is experiencing could be possibly pleuritic pain or pleurisy due to the pleural effusion that is seen on the chest x-ray due to her PE. Patient was ambulated around the ER without any signs of hypoxia or significant tachycardia. Patient laboratory studies not show any signs of kidney stone. The explained to the patient that recommend anti-inflammatory medications Tylenol 1 packs ice packs to the areas that hurt follow-up with your primary care physician return to the ER symptoms worsen. Patient states understanding will be discharged home - Vital Signs Vital signs: Temp Pulse Resp BP Pulse Ox 98.3 F 86 15 118/76 99 07/07/18 14:01 07/07/18 14:01 07/07/18 14:01 07/07/18 14:01 07/07/18 14:01 - Laboratory Result Diagrams: 07/07/18 09:45 07/07/18 09:45 Laboratory results interpreted by me: 07/07/18 07/07/18 07/07/18 09:45 09:45 09:45 Hgb 10.4 L Hct 33.7 L MCV 70 L MCH 21.6 L MCHC 30.9 L RDW 20.3 H Plt Count 489 H APTT 49.8 H Creatine Kinase 27 L Urine Protein 07/07/18 12:53 Hgb Hct MCV MCH MCHC RDW Plt Count APTT Creatine Kinase Urine Protein 30 H Discharge - Discharge Clinical Impression: History of pulmonary embolism on therapy, Anticoagulation with Lovenox Dyspnea Qualifiers: Dyspnea type: unspecified Qualified Code(s): R06.00 - Dyspnea, unspecified Right shoulder pain Qualifiers: Chronicity: unspecified Qualified Code(s): M25.511 - Pain in right shoulder Condition: Good Disposition: HOME, SELF-CARE Instructions: Dyspnea, Nonspecific ([facility]) Additional Instructions: Your evaluation today does not show any signs of significant pathology. There is no pneumonia your chest x-ray your pleural effusion has decreased in size from your previous CT scans. Laboratory studies not indicated any signs of infection your urinalysis is normal. Do believe some of your pain in the right flank is more likely due to pleurisy or inflammation of the lining of the lungs I would highly recommend continue treatment with this with anti-inflammatory medication and Tylenol. Please follow-up with your primary care physician and continue your medications as prescribed. Referrals: LYNDA VEGA MD [Primary Care Provider] - Follow up as needed
[2018-07-07 14:02] VITALS: BP 118/76
--- NOTE | 2018-07-07 14:57 | EKG REPORT ---
SEVERITY:- BORDERLINE ECG - SINUS RHYTHM BORDERLINE T ABNORMALITIES, INFERIOR LEADS : Confirmed by: Darline Montalvo 07-Jul-2018 14:56:20
== END 2018-07-07 14:02 | disposition home or self-care (01) ==
LOC: ER 07:33
DX: R06.02 Shortness of breath (principal); R10.9 Unspecified abdominal pain; M25.511 Pain in right shoulder; Z91.040 Latex allergy status; R06.00 Dyspnea, unspecified; Z86.711 Personal history of pulmonary embolism; Z79.01 Long term (current) use of anticoagulants
CPT/HCPCS: 93005; 99285; 96361; 51701; 96374; 36415; 82553; 82550; 83690; 83735; 85025; 85610; 85730; 80053; 81001; 84484; 71046; 93010; J1885; J3490; J7040

== ENCOUNTER 2018-07-23 11:34 | Emergency (ER) | payer OTHER, MEDICAID ==
[2018-07-23] MEDS ORDERED: ENOXAPARIN SODIUM INJ 80 MG/0.8 ML DISP.SYRIN SUBCUT ONE (13:09)
--- NOTE | 2018-07-23 13:37 | ER Document Report ---
HPI - HPI Time Seen by Provider: 07/23/18 12:53 Pain Level: 1 Notes: Patient is a 33-year-old female who presents with request for administration of medication. Patient reports she is currently taking Lovenox 160 mg daily for a pulmonary embolism. She has been taking this for approximately 30 days. She states that the pharmacy had to reorder her medication and it will not be available until tomorrow so she was directed to come here for 1 dose. Patient denies any chest pain, shortness of breath or any other symptoms. - REPRODUCTIVE Reproductive: DENIES: : Past Medical History - General Information source: Patient - Social History Smoking Status: Never Smoker Frequency of alcohol use: None Drug Abuse: None Family History: Reviewed & Not Pertinent - Past Medical History Cardiac Medical History: Reports: Hx Pulmonary Embolism Pulmonary Medical History: Reports: Hx Asthma Renal/ Medical History: Denies: Hx Peritoneal Dialysis GI Medical History: Reports: Hx Crohn's Disease, Hx Gastroesophageal Reflux Disease Past Surgical History: Reports: Hx Adenoidectomy, Hx Section, Hx Ton sillectomy - Immunizations Immunizations up to date: Yes Vertical Provider Document - CONSTITUTIONAL Notes: PHYSICAL EXAMINATION: GENERAL: Well-appearing, well-nourished and in no acute distress. HEAD: Atraumatic, normocephalic. EYES: Pupils equal round extraocular movements intact, conjunctiva are normal. ENT: Nares patent NECK: Normal range of motion LUNGS: No respiratory distress Musculoskeletal: Normal range of motion NEUROLOGICAL: Normal speech, normal gait. PSYCH: Normal mood, normal affect. SKIN: Warm, Dry, normal turgor, no rashes or lesions noted. - INFECTION CONTROL TRAVEL OUTSIDE OF THE [place] IN LAST 30 DAYS: No Course - Re-evaluation Re-evalutation: Lovenox was administered as per her usual order of 160 mg. She is and has likely lost weight since his dose was calculated. I did discuss this with the patient as well as my attending physician. I will give her the dose of 160 mg today. I did discuss with the patient that her dose may need to be adjusted by her managing physician to 110 mg as that is her new weight. Patient verbalized understanding and will call her physician in the morning before she picks up her new prescription of medication. - Vital Signs Vital signs: Temp Pulse Resp BP Pulse Ox 97.5 F 82 16 136/90 H 100 07/23/18 11:52 07/23/18 11:52 07/23/18 11:52 07/23/18 11:52 07/23/18 11:52 Discharge - Discharge Clinical Impression: Medication administered Condition: Stable Disposition: HOME, SELF-CARE Additional Instructions: Your weight today is 110 kg. Based on your weight your dose of Lovenox may need to be adjusted. It is likely that you have lost a significant amount of weight since the original prescription was written. The usual dose of Lovenox is 1 mg/kg of body weight. Please call your primary care provider and discuss this with him. Referrals: LYNDA VEGA MD [ACTIVE STAFF] - Follow up as needed
[2018-07-23 13:50] VITALS: BP 132/86
== END 2018-07-23 13:50 | disposition home or self-care (01) ==
LOC: ER 11:34
DX: I26.99 Other pulmonary embolism without acute cor pulmonale (principal); Z79.01 Long term (current) use of anticoagulants; J45.909 Unspecified asthma, uncomplicated
CPT/HCPCS: 99281; 96372; J1650

== ENCOUNTER 2018-12-26 00:29 | Emergency (ER) | payer OTHER, MEDICAID | END 2018-12-26 00:49 | disposition left against medical advice (07) | LOC: ER 00:29 | DX: Z53.21 Procedure and treatment not carried out due to patient leaving prior to being seen by health care provider (principal) ==

== ENCOUNTER 2019-05-06 21:03 | Emergency (ER) | payer MEDICAID, OTHER ==
[2019-05-06] MEDS ORDERED: AMOXICILLIN TR/POT CLAVULANATE 500-125 MG TAB PO ONE (22:09)
--- NOTE | 2019-05-06 22:09 | ER Document Report ---
ED General - General Chief Complaint: Finger Injury Stated Complaint: FINGER PAIN Time Seen by Provider: 05/06/19 21:46 Primary Care Provider: SUZI ALICEA MD [Primary Care Provider] - Follow up in 3-5 days Notes: Patient is a 33-year-old female that presents to the emergency department for chief complaint of right ring finger injury. Patient states that she had excellently poked herself with what she thinks was an old Lovenox needle. She was on Lovenox before now she is on Xarelto. She started having some redness and bruising at the site she went to an urgent care and they demarcated it with a marker and told her if it got worse to come to the emergency department to be checked out. She denies having any associated pain with the area and it does not hurt to move her finger. Denies any swelling either. She denies any any fever, chills, redness streaking up her hand. No pain at this time, and no other complaints. Past Medical History: factor v leiden Past Surgical History: denies any recent or pertinent surgical history Social History: denies tobacco, ETOH, or drug use Family History: Reviewed and noncontributory for presenting illness Allergies: Reviewed, see documented allergy list. REVIEW OF SYSTEMS: Other than noted above, the 12 point review of systems was reviewed with the patient and were negative, all pertinent findings are included in the HPI. PHYSICAL EXAMINATION: Vital signs reviewed, nursing noted reviewed. GENERAL: Well-appearing, well-nourished and in no acute distress. HEAD: Atraumatic, normocephalic. EYES: Eyes appear normal, sclera anicteric, conjunctiva are normal. ENT: Moist mucous membranes. NECK: Normal range of motion, supple without lymphadenopathy LUNGS: Breath sounds clear to auscultation bilaterally and equal. No wheezes rales or rhonchi. HEART: Regular rate and rhythm without murmurs EXTREMITIES: Nontender, good range of motion, no pitting or edema. This noted to be mild ecchymosis to the radial aspect of the patient's right fourth finger, nontender to palpate, no edema associated, patient has excellent range of motion, cap refills less than 3 seconds in all digits, and sensation is intact distally and equal in all fingers. No other injuries or bruising noted. Does not appear to be cellulitic as it is nontender and not warm to touch. Appears more like superficial ecchymosis from injury. NEUROLOGICAL: No focal neurological deficits. Moves all extremities spontaneously Motor and sensory grossly intact on exam. PSYCH: Normal mood, normal affect. SKIN: Warm, Dry, normal turgor, no rashes or lesions noted on exposed skin TRAVEL OUTSIDE OF THE [place] IN LAST 30 DAYS: No - Related Data Allergies/Adverse Reactions: buspirone [Buspirone] Allergy (Verified 07/23/18 11:36) citalopram hydrobromide [From Celexa] Allergy (Verified 07/23/18 11:36) latex Allergy (Verified 07/23/18 11:36) metoclopramide [From Reglan] Adverse Reaction (Verified 07/23/18 11:36) Past Medical History - Social History Smoking Status: Never Smoker Chew tobacco use (# tins/day): No Frequency of alcohol use: None Drug Abuse: None Family History: Reviewed & Not Pertinent Patient has suicidal ideation: No Patient has homicidal ideation: No - Past Medical History Cardiac Medical History: Reports: Hx Pulmonary Embolism Pulmonary Medical History: Reports: Hx Asthma Renal/ Medical History: Denies: Hx Peritoneal Dialysis GI Medical History: Reports: Hx Crohn's Disease, Hx Gastroesophageal Reflux Disease Past Surgical History: Reports: Hx Adenoidectomy, Hx Section, Hx Tonsillectomy - Immunizations Immunizations up to date: Yes Physical Exam - Vital signs Vitals: Temp Pulse Resp BP Pulse Ox 98.0 F 77 20 140/88 H 98 05/06/19 21:10 05/06/19 21:10 05/06/19 21:10 05/06/19 21:10 05/06/19 21:10 Course - Re-evaluation Re-evalutation: Patient seen and examined, vital signs reviewed, appeared well on exam, patient had some bruising in the radial aspect of the fourth digit, x-rays obtained to evaluate for possible foreign body, this was negative for any retained foreign body, I did give the patient Augmentin in case this is an early cellulitis, although I have a low suspicion for that, given the acute onset, and it looks like bruising, on a patient on anticoagulation. Patient will be discharged home, given prescription for Augmentin advised to monitor for any worsening signs, particularly of swelling, and tenderness to palpation patient was agreeable and discharged home. Finger X-Ray 05/06/19 22:08 IMPRESSION: No acute fracture or malalignment. - Vital Signs Vital signs: Temp Pulse Resp BP Pulse Ox 98.0 F 77 20 140/88 H 98 05/06/19 21:10 05/06/19 21:10 05/06/19 21:10 05/06/19 21:10 05/06/19 21:10 Discharge - Discharge Clinical Impression: Finger injury Qualifiers: Encounter type: initial encounter Laterality: right Qualified Code(s): S69.91XA - Unspecified injury of right wrist, hand and finger(s), initial encounter Condition: Stable Disposition: HOME, SELF-CARE Additional Instructions: Monitor for any worsening swelling, or pain, if you develop redness that surrounds the entire finger, or pain along the palm surface of your finger that is worse with straightening her finger out over the next few days, please return to the emergency department immediately. Please take the antibiotic as prescribed and complete the course over the next 5 days. Prescriptions: Amox Tr/Potassium Clavulanate [Augmentin 875-125 Tablet] 1 tab PO BID 5 Days #10 tablet Referrals: SUZI ALICEA MD [Primary Care Provider] - Follow up in 3-5 days
--- NOTE | 2019-05-06 22:41 | RADIOLOGY REPORT (SQ) ---
3 VIEWS OF RIGHT FOURTH DIGIT EXAM DATE: 05/06/2019 10:08 PM CDT HISTORY: right ring finger injury. COMPARISON: None. FINDINGS: No acute fracture or dislocation is seen. The joint spaces are preserved. No radiopaque foreign body is identified. Mild soft tissue swelling. IMPRESSION: No acute fracture or malalignment.
[2019-05-06 23:18] VITALS: BP 138/80
== END 2019-05-06 23:17 | disposition home or self-care (01) ==
LOC: ER 21:03
DX: S69.91XA Unspecified injury of right wrist, hand and finger(s), initial encounter (principal); W46.0XXA Contact with hypodermic needle, initial encounter; Z86.711 Personal history of pulmonary embolism; Z91.040 Latex allergy status
CPT/HCPCS: 73140; J3490; 99283

== ENCOUNTER 2019-07-06 21:55 | Emergency (ER) | payer MEDICAID ==
[2019-07-06 22:36] VITALS: BP 130/91
== END 2019-07-07 00:54 | disposition left against medical advice (07) ==
LOC: ER 21:55
DX: Z53.21 Procedure and treatment not carried out due to patient leaving prior to being seen by health care provider (principal)

== ENCOUNTER 2019-09-02 08:44 | Emergency (ER) | payer MEDICAID ==
[2019-09-02] MEDS ORDERED: NORMAL SALINE 1000 ML 1,000 ML IV ONE (11:16)
--- NOTE | 2019-09-02 11:23 | ER Document Report ---
ED GI Bleed / Rectal Pain - General Chief Complaint: Bloody Stools Stated Complaint: BLOODY STOOLS, LOW BACK PAIN Time Seen by Provider: 09/02/19 11:07 Primary Care Provider: STEPHEN PEREZ MD [NO LOCAL MD] - Follow up in 3-5 days Notes: Patient is a 34-year-old female with a history of Crohn's disease who presents the emergency department with blood in her stools. Patient states that she saw her mineral economist, Dr. Perez. She was on Humira, but now has not been on it. She ended up being placed on prednisone, but she has not had any relief of her symptoms. She states that she is having mucus/blood stools and also having some gas. Patient reports bright red blood. She also has a throbbing pain in her mid lower back. States it has been on and off. TRAVEL OUTSIDE OF THE [place] IN LAST 30 DAYS: No - Related Data Allergies/Adverse Reactions: buspirone [Buspirone] Allergy (Verified 09/02/19 08:57) citalopram hydrobromide [From Celexa] Allergy (Verified 09/02/19 08:57) latex Allergy (Verified 09/02/19 08:57) metoclopramide [From Reglan] Adverse Reaction (Verified 09/02/19 08:57) Past Medical History - Social History Smoking Status: Never Smoker Chew tobacco use (# tins/day): No Frequency of alcohol use: None Drug Abuse: None Family History: Reviewed & Not Pertinent Patient has suicidal ideation: No Patient has homicidal ideation: No - Past Medical History Cardiac Medical History: Reports: Hx Pulmonary Embolism Pulmonary Medical History: Reports: Hx Asthma Renal/ Medical History: Denies: Hx Peritoneal Dialysis GI Medical History: Reports: Hx Crohn's Disease, Hx Gastroesophageal Reflux Disease Past Surgical History: Reports: Hx Adenoidectomy, Hx Section, Hx Tonsillectomy - Immunizations Immunizations up to date: Yes Review of Systems - Review of Systems Notes: REVIEW OF SYSTEMS: CONSTITUTIONAL : Denies recent illness. Denies recent unintentional weight loss. Denies fever, chills, or sweats. EENT: Denies eye, ear, throat, or mouth pain, discharge, or symptoms. Denies nasal or sinus congestion. CARDIOVASCULAR: Denies chest pain. RESPIRATORY: Denies shortness of breath, cough, congestion, difficulty breathing, or wheezing. GASTROINTESTINAL: See HPI. GENITOURINARY: Denies difficulty urinating, burning, blood in urine, urgency or frequency. MUSCULOSKELETAL: Denies neck and back pain. Denies joint pain or swelling. SKIN: Denies rash, itchiness, or lesions HEMATOLOGIC : Denies easy bruising or bleeding. LYMPHATIC: Denies swollen, painful, enlarged glands. NEUROLOGICAL: Denies no numbness or tingling denies weakness. Denies headache. Denies altered mental status. Denies alteration in speech. PSYCHIATRIC: Denies stress, anxiety, alteration in sleep patterns, or depression. All other systems reviewed and negative. Physical Exam - Vital signs Vitals: Temp Pulse Resp BP Pulse Ox 97.6 F 99 18 125/82 100 09/02/19 08:49 09/02/19 08:49 09/02/19 08:49 09/02/19 08:49 09/02/19 08:49 - Notes Notes: PHYSICAL EXAMINATION: GENERAL: Appears well, healthy, well-nourished, no acute distress. HEAD: Normocephalic, atraumatic. EYES: PERRL, conjunctiva normal, all extraocular movements intact, sclera nonicteric ENT: Moist mucous membranes. NECK: Supple, no noticeable swelling, redness, rash. Normal range of motion. LUNGS: Equal breath sounds bilaterally and clear to auscultation. No wheezes rales or rhonchi. CARDIOVASCULAR: S1-S2, regular rate, regular rhythm. Radial pulses 2+, normal. ABDOMEN: Normoactive bowel sounds. Soft, nontender, no guarding, no rebound tenderness, and no masses palpated. EXTREMITIES: Normal strength and range of motion, no pitting or edema. No cyanosis. NEUROLOGICAL: Moves all extremities upon command. Strength 5/5 in all extremities. PSYCH: Normal mood, normal affect. SKIN: Warm, dry. No rash, lesions, ulcerations noted. Normal skin turgor. RECTAL: No bright red blood noted, but stool occult positive. Course - Re-evaluation Re-evalutation: 09/02/19 13:43 Laboratory studies show that the patient has a cytosis of 13,600. This is most likely due to the patient having diarrhea. Chemistries are unremarkable. hCG is negative. Urinalysis shows trace leukocytes and a large amount of blood. CT of the abdomen did not show any acute findings. Urine culture will be sent. Patient will be started on another prednisone taper. She will also receive Solu-Medrol here in the emergency department. Follow-up precautions were given. Verbal discharge instructions were given to the patient. They verbalized understanding. They are stable for discharge. - Vital Signs Vital signs: Temp Pulse Resp BP Pulse Ox 97.6 F 99 18 125/82 100 09/02/19 08:49 09/02/19 08:49 09/02/19 08:49 09/02/19 08:49 09/02/19 08:49 - Laboratory Result Diagrams: 09/02/19 11:20 09/02/19 11:20 Laboratory results interpreted by me: 09/02/19 09/02/19 09/02/19 11:20 11:20 12:50 WBC 13.6 H RBC 5.41 H MCV 78 L MCH 25.8 L RDW 16.6 H [place] % (Auto) 2.6 L Absolute Neuts (auto) 11.1 H Seg Neutrophils % 81.6 H Total Protein 8.6 H Urine Protein 30 H Urine Blood LARGE H Leukocyte Esterase Rfl TRACE H Discharge - Discharge Clinical Impression: Blood in stool Diarrhea Qualifiers: Diarrhea type: unspecified type Qualified Code(s): R19.7 - Diarrhea, unspecified Crohn's disease Qualifiers: Gastrointestinal tract location: unspecified location Digestive disease complication type: with rectal bleeding Qualified Code(s): K50.911 - Crohn's disease, unspecified, with rectal bleeding Condition: Stable Disposition: HOME, SELF-CARE Additional Instructions: You were seen today in the emergency department for diarrhea, related to your Crohn's. You are being placed on another dose of steroids. Please follow-up with your GI doctor in regards to this visit. Please follow-up with your primary care provider in regards to this visit. You are also being tone on gas medication. You can take this as needed. Also, please bring a stool sample to the lab. Prescriptions: Prednisone [Deltasone 10 mg Tablet] 10 mg PO ASDIR PRN #21 tablet PRN Reason: Simethicone [Gas Relief] 80 mg PO QIDP PRN #30 tab.chew PRN Reason: Forms: Return to Work, Follow-Up Laboratory Testing Referrals: STEPHEN PEREZ MD [NO LOCAL MD] - Follow up in 3-5 days
[2019-09-02 11:51] LABS: ABSOLUTE BASOPHILS # (AUTO) 0.1 10^3/uL (0.0-0.2); ABSOLUTE EOSINOPHILS # (AUTO) 0.1 10^3/uL (0.0-0.6); ABSOLUTE MONOCYTES (AUTO) 0.4 10^3/uL (0.1-1.4); ABSOLUTE NEUT (AUTO) 11.1 10^3/uL (1.7-8.2); BASOPHILS % (AUTO) 0.4 % (0-2); EOSINOPHILS % (AUTO) 0.5 % (0-6); HEMATOCRIT 42.2 % (36.0-47.0); HEMOGLOBIN 13.9 g/dL (12.0-15.5); LYMPHOCYTES % (AUTO) 14.9 % (13-45); MEAN CORPUSCULAR HEMOGLOBIN 25.8 pg (27.0-33.4); MEAN CORPUSCULAR VOLUME 78 fl (80-97); MONOCYTES % (AUTO) 2.6 % (3-13); PLATELET COUNT 421 10^3/uL (150-450); RED BLOOD COUNT 5.41 10^6/uL (3.72-5.28); RED CELL DISTRIBUTION WIDTH 16.6 % (11.5-14.0); SEGMENTED NEUTROPHILS % (AUTO) 81.6 % (42-78); TOTAL CELLS COUNTED % (AUTO) 100 %; WHITE BLOOD COUNT 13.6 10^3/uL (4.0-10.5)
[2019-09-02 12:10] LABS: ALBUMIN 4.8 g/dL (3.5-5.0); ALKALINE PHOSPHATASE 117 U/L (38-126); ANION GAP 14 (5-19); ASPARTATE AMINO TRANSFERASE 21 U/L (14-36); BILIRUBIN,DIRECT 0.3 mg/dL (0.0-0.4); BILIRUBIN,TOTAL 0.4 mg/dL (0.2-1.3); BLOOD UREA NITROGEN 18 mg/dL (7-20); CALCIUM 9.8 mg/dL (8.4-10.2); CARBON DIOXIDE 27 mmol/L (22-30); CHLORIDE 99 mmol/L (98-107); GLUCOSE 96 mg/dL (75-110); TOTAL PROTEIN 8.6 g/dL (6.3-8.2)
--- NOTE | 2019-09-02 13:01 | RADIOLOGY REPORT (SQ) ---
EXAM DESCRIPTION: CT ABD/PELVIS WITH IV ONLY COMPLETED DATE/TIME: 09/02/2019 12:42 pm REASON FOR STUDY: abdominal pain; GI bleeding COMPARISON: None. TECHNIQUE: CT scan of the abdomen and pelvis performed using helical scanning technique with dynamic intravenous contrast injection. No oral contrast. Images reviewed with lung, soft tissue, and bone windows. Reconstructed coronal and sagittal MPR images reviewed. Delayed images for evaluation of the urinary system also acquired. All images stored on PACS. All CT scanners at this facility use dose modulation, iterative reconstruction, and/or weight based d osing when appropriate to reduce radiation dose to as low as reasonably achievable (ALARA). [facility]: Dose Right [facility]: CareDose [facility]: Dose Right [facility]: Teradose 4D [facility]: [employer] CONTRAST TYPE AND DOSE: contrast/concentration: Isovue 350.00 mg/ml; Total Contrast Delivered: 100.0 ml; Total Saline Delivered: 72.0 ml RENAL FUNCTION: GFR > 60. RADIATION DOSE: CT Rad equipment meets quality standard of care and radiation dose reduction techniq ues were employed. CTDIvol: 19.0 - 21.1 mGy. DLP: 2463 mGy-cm.. LIMITATIONS: None. FINDINGS: LOWER CHEST: No significant findings. No nodules or infiltrates. LIVER: Normal size. No masses. No dilated ducts. SPLEEN: Normal size. No focal lesions. PANCREAS: No masses. No significant calcifications. No adjacent inflammation or peripancreatic fluid collections. Pancreatic duct not dilated. GALLBLADDER: No identified stones by CT criteria. No inflammatory changes to suggest cholecystitis. ADRENAL GLANDS: No significant masses or asymmetry. RIGHT KIDNEY AND URETER: No solid masses. Peripheral nonobstructive calculus. No hydronephrosis o r hydroureter. LEFT KIDNEY AND URETER: No solid masses. Peripheral nonobstructive calculi. No hydronephrosis or hydroureter. AORTA AND VESSELS: No aneurysm. No dissection. Renal arteries, SMA, celiac without stenosis. RETROPERITONEUM: No retroperitoneal adenopathy, hemorrhage or masses. BOWEL AND PERITONEAL CAVITY: No masses or inflammatory changes. No free fluid or peritoneal masses. APPENDIX: Normal. PELVIS: No mass. No free fluid. Normal bladder. ABDOMINAL WALL: No masses. No hernias. BONES: No significant or acute findings. OTHER: No other significant finding. IMPRESSION: NO SIGNIFICANT OR ACUTE FINDING IN THE ABDOMEN OR PELVIS ON CT SCAN WITH IV CONTRAST. TECHNICAL DOCUMENTATION: JOB ID: [id number] Quality ID # [id number]: Final reports with documentation of one or more dose reduction techniques (e.g., Au tomated exposure control, adjustment of the mA and/or kV according to patient size, use of iterative reconstruction technique) 2010 [employer]- All Rights Reserved Reading location - IP/workstation name: [email or web address]
[2019-09-02 13:13] LABS: APPEARANCE,URINE SLIGHTLY-CLOUDY; BILIRUBIN,URINE NEGATIVE (NEGATIVE); COLOR,URINE YELLOW; GLUCOSE, URINE NEGATIVE (NEGATIVE); KETONES,URINE NEGATIVE (NEGATIVE); PROTEIN,URINE 30 mg/dL (NEGATIVE); URINE SPECIFIC GRAVITY 1.042; UROBILINOGEN,URINE NEGATIVE mg/dL (<2.0)
[2019-09-02] MEDS ORDERED: METHYLPREDNISOLONE INJ 125 MG/2 ML SDV IV ONE (13:41)
[2019-09-02] MEDS ORDERED: SIMETHICONE 80 MG TAB.CHEW PO ONE (13:41)
[2019-09-02 14:08] VITALS: BP 117/82
== END 2019-09-02 14:09 | disposition home or self-care (01) ==
LOC: ER 08:44
DX: K50.911 Crohn's disease, unspecified, with rectal bleeding (principal); R19.7 Diarrhea, unspecified; M54.5 Low back pain; R31.9 Hematuria, unspecified; J45.909 Unspecified asthma, uncomplicated; Z79.52 Long term (current) use of systemic steroids; Z88.8 Allergy status to other drugs, medicaments and biological substances; Z91.040 Latex allergy status
CPT/HCPCS: 99284; 96361; 96374; 36415; 87086; 84703; 85025; 80053; 81001; 74177; J2930; J7030

== ENCOUNTER 2019-10-10 11:44 | Emergency (ER) | payer MEDICAID ==
--- NOTE | 2019-10-10 12:33 | ER Document Report ---
ED General - General Chief Complaint: Shortness Of Breath Stated Complaint: SHORTNESS OF BREATH Time Seen by Provider: 10/10/19 11:55 Mode of Arrival: Ambulatory Information source: Patient, [facility] Records TRAVEL OUTSIDE OF THE [place] IN LAST 30 DAYS: No - HPI Onset: Other - 2-3 days Onset/Duration: Gradual, Persistent Quality of pain: Dull Severity: Mild Pain Level: 1 Context: Patient is a 34-year-old female presenting to the emergency department with a chief complaint of shortness of breath. Patient states it started 2 to 3 days ago she states that it is worse if she is exerting or if she is lying flat. Patient reports sore throat cough subjective fever and chills. 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 Patient has had pulmonary emboli in the past. Patient denies any travel history or trauma history. Patient denies any obvious sick contacts. Associated symptoms: Nonproductive cough, Fever, Shortness of breath Exacerbated by: Movement, Walking, Coughing, Deep breathing Relieved by: Denies Similar symptoms previously: Yes Recently seen / treated by doctor: No - Related Data Allergies/Adverse Reactions: buspirone [Buspirone] Allergy (Verified 09/02/19 08:57) citalopram hydrobromide [From Celexa] Allergy (Verified 09/02/19 08:57) latex Allergy (Verified 09/02/19 08:57) metoclopramide [From Reglan] Adverse Reaction (Verified 09/02/19 08:57) Home Medications: adderall, xarelto, albuterol, lexapro, prednisone Past Medical History - General Information source: Patient - Social History Smoking Status: Never Smoker Chew tobacco use (# tins/day): No Frequency of alcohol use: None Drug Abuse: None Lives with: Family Family History: Reviewed & Not Pertinent Patient has suicidal ideation: No Patient has homicidal ideation: No - Past Medical History Cardiac Medical History: Reports: Hx Pulmonary Embolism, Other - Factor V Lieden deficiency Pulmonary Medical History: Reports: Hx Asthma Renal/ Medical History: Denies: Hx Peritoneal Dialysis GI Medical History: Reports: Hx Crohn's Disease, Hx Gastroesophageal Reflux Disease Past Surgical History: Reports: Hx Adenoidectomy, Hx Section, Hx Tonsillectomy - Immunizations Immunizations up to date: Yes Review of Systems - Review of Systems Constitutional: See HPI EENT: See HPI Cardiovascular: No symptoms reported Respiratory: See HPI Gastrointestinal: No symptoms reported Genitourinary: No symptoms reported Female Genitourinary: No symptoms reported Musculoskeletal: See HPI Skin: No symptoms reported Hematologic/Lymphatic: No symptoms reported Neurological/Psychological: No symptoms reported -: Yes All other systems reviewed and negative Physical Exam - Vital signs Vitals: Temp Pulse Resp BP Pulse Ox 98.0 F 85 18 135/84 H 100 10/10/19 11:45 10/10/19 11:45 10/10/19 11:45 10/10/19 11:45 10/10/19 11:45 - Notes Notes: PHYSICAL EXAMINATION: GENERAL: Well-appearing, well-nourished and in no acute distress. HEAD: Atraumatic, normocephalic. EYES: Pupils equal round and reactive to light, extraocular movements intact, sclera anicteric, conjunctiva are normal. ENT: nares patent, oropharynx clear without exudates. Moist mucous membranes. NECK: Normal range of motion, supple without lymphadenopathy, no appreciable JVD LUNGS: Lungs clear to auscultation bilaterally and equal. No wheezes rales or rhonchi. HEART: Regular rate and rhythm without murmurs ABDOMEN: Soft, nontender, normal bowel sounds. No guarding, no rebound. No masses appreciated. EXTREMITIES: Active full range of motion, no pitting or edema. No cyanosis. 2+ pulses x4 NEUROLOGICAL: No focal neurological deficits. Moves all extremities spontaneously and on command. SKIN: Warm, Dry, and intact. Normal turgor, no rashes or lesions noted. Course - Re-evaluation Re-evalutation: 10/10/19 12:35 IV access has been obtained. Urinalysis has been requested influenza test has been requested rapid strep is been requested chest CT because of shortness of breath and prior history of pulmonary emboli has been requested. 10/10/19 14:08 On reevaluation the patient is resting comfortably in hospital room. Patient has had no complaints while present. I have reviewed the patient's laboratory and radiologic results that demonstrate no significant findings. I discussed with the patient and the house wirer the patient's medical history, medical risk factors and possible susceptibility to the coronavirus and at this time and requesting Covid 19 testing. Patient is agreeable with same and understands she will be called only for a positive finding. At this time no medications will be initiated. Patient is recommended to follow-up with her normal physician in the next several days or return to the emergency department for worsening symptoms. - Vital Signs Vital signs: Temp Pulse Resp BP Pulse Ox 98.0 F 85 18 135/84 H 100 10/10/19 11:45 10/10/19 11:45 10/10/19 11:45 10/10/19 11:45 10/10/19 11:45 - Laboratory Result Diagrams: 10/10/19 12:05 10/10/19 12:05 Laboratory results interpreted by me: 10/10/19 10/10/19 12:05 13:20 RDW 17.0 H Urine Ketones TRACE H Urine Blood LARGE H Ur Leukocyte Esterase SMALL H - Diagnostic Test Radiology reviewed: Reports reviewed - EKG Interpretation by Me EKG shows normal: Sinus rhythm Rate: Normal Rhythm: NSR When compared to previous EKG there are: No significant change Additional EKG results interpreted by me: 10/10/19 12:35 Initial EKG demonstrates sinus rhythm rate of 82 bpm there is no ST elevation no axis deviation no major change compared to prior EKG of July 07, 2018 however there is a minimal S wave in lead I there is Q waves in lead III. Discharge - Discharge Clinical Impression: Shortness of breath, Cough, Sore throat (viral) Condition: Stable Disposition: HOME, SELF-CARE Instructions: Acetaminophen, Viral Syndrome ([facility]) Additional Instructions: SHORTNESS OF BREATH OR DYSPNEA: You were evaluated for shortness of breath, or dyspnea. Dyspnea has many causes, and some are more serious than others. Sometimes it's impossible to diagnose the cause of dyspnea with the tests that are available on an emergency basis. Based on our evaluation today, you do not need hospitalization now. We found no evidence of pneumonia, collapsed lung, blood clots in the lung, tumors, or heart failure. Causes of non-specific dyspnea can include asthma or bronchospasm, hyperventilation, emotional distress, heart disease, emphysema, fibrosis of the lung, and stiffness of the chest wall. In healthy individuals with a single episode, it's sometimes reasonable to do nothing but wait to see if the problem occurs again. Additional tests used to evaluate dyspnea can include cardiac stress testing, echocardiography, pulmonary function testing, CAT scan of the chest, bronchoscopy or pulmonary biopsy. Return if shortness of breath persists or worsens, or if you develop chest pain, fever, cough, confusion, or fainting. NORMAL EXAM AND WORKUP: At this time, your examination and workup show no significant abnormality. No significant abnormal physical findings were noted. All laboratory, EKG, and imaging (x-ray, CT scans, ultrasound) studies that were ordered show no significant abnormality. Although your examination and all studies that were ordered showed no significant abnormal finding, there are no examinations and no studies that are 100% accurate. There is always the possibility that some abnormality could exist and not be detected with physical examination or within the limits and capabilities of laboratory and other studies. You should return or follow up as you were instructed on your visit today for further evaluation if your symptoms do not resolve. FOLLOW-UP CARE: If you have been referred to a physician for follow-up care, call the physicians office for an appointment as you were instructed or within the next two days. If you experience worsening or a significant change in your symptoms, notify the physician immediately or return to the Emergency Department at any time for re-evaluation. Sore Throat Sore throats may be caused by viruses, bacteria, or fungi. Most are due to a virus, and must get better on their own. Bacterial sore throats, particularly those due to "strep," need treatment with antibiotics. If an antibiotic is prescribed, be sure to take the medication for a full 10 days. Failure to take the antibiotic can result in complications such as rheumatic fever. Sometimes, an injection of antibiotics is given instead of pills or liquid. This single "shot" is equal in effectiveness to the oral medication. To relieve symptoms, take acetaminophen for pain. Sip clear liquids frequently, or eat popsicles or ice chips. Anesthetic sprays or lozenges may help. Make sure the air in the room is not too dry. Avoid using decongestants or antihistamines. Call the doctor if there is no improvement in two days, or if you have difficulty breathing, increasing throat pain, high fever, rash, or frequent vomiting. Forms: Return to Work
[2019-10-10 12:38] LABS: ABSOLUTE BASOPHILS # (AUTO) 0.1 10^3/uL (0.0-0.2); ABSOLUTE EOSINOPHILS # (AUTO) 0.2 10^3/uL (0.0-0.6); ABSOLUTE LYMPHOCYTES (AUTO) 2.6 10^3/uL (0.5-4.7); ABSOLUTE MONOCYTES (AUTO) 0.9 10^3/uL (0.1-1.4); ABSOLUTE NEUT (AUTO) 4.3 10^3/uL (1.7-8.2); BASOPHILS % (AUTO) 0.8 % (0-2); EOSINOPHILS % (AUTO) 2.3 % (0-6); HEMATOCRIT 37.9 % (36.0-47.0); HEMOGLOBIN 12.7 g/dL (12.0-15.5); LYMPHOCYTES % (AUTO) 32.3 % (13-45); MEAN CORPUSCULAR HEMOGLOBIN 27.2 pg (27.0-33.4); MEAN CORPUSCULAR HGB CONC 33.6 g/dL (32.0-36.0); MEAN CORPUSCULAR VOLUME 81 fl (80-97); MONOCYTES % (AUTO) 11.1 % (3-13); PLATELET COUNT 319 10^3/uL (150-450); RED BLOOD COUNT 4.67 10^6/uL (3.72-5.28); SEGMENTED NEUTROPHILS % (AUTO) 53.5 % (42-78); TOTAL CELLS COUNTED % (AUTO) 100 %
[2019-10-10 12:48] LABS: PROTHROMBIN TIME 15.3 SEC (11.4-15.4)
[2019-10-10 13:00] LABS: A TYPE INFLUENZA AG NEGATIVE (NEGATIVE); ALBUMIN 4.1 g/dL (3.5-5.0); ALKALINE PHOSPHATASE 77 U/L (38-126); ANION GAP 6 (5-19); ASPARTATE AMINO TRANSFERASE 21 U/L (14-36); B INFLUENZA AG NEGATIVE (NEGATIVE); BILIRUBIN,DIRECT 0.2 mg/dL (0.0-0.4); BILIRUBIN,TOTAL 0.3 mg/dL (0.2-1.3); BLOOD UREA NITROGEN 14 mg/dL (7-20); CALCIUM 9.2 mg/dL (8.4-10.2); CARBON DIOXIDE 28 mmol/L (22-30); CHLORIDE 104 mmol/L (98-107); GLUCOSE 80 mg/dL (75-110); POTASSIUM 4.3 mmol/L (3.6-5.0); TOTAL PROTEIN 7.4 g/dL (6.3-8.2)
--- NOTE | 2019-10-10 13:36 | RADIOLOGY REPORT (SQ) ---
EXAM DESCRIPTION: CTA CHEST IMAGES COMPLETED DATE/TIME: 10/10/2019 12:18 pm REASON FOR STUDY: sob ??? PE. Risk factors for covid19. COMPARISON: 06/28/2018 TECHNIQUE: CT scan of the chest performed using helical scanning technique with dynamic intravenous contrast injection. Images reviewed with lung, soft tissue and bone windows. Reconstructed coronal and sagittal MPR images reviewed. Additional 3 dimensional post-processing performed to develop Maximal Intensity Projection images (CT P). All images stored on PACS. All CT scanners at this facility use dose modulation, iterative reconstruction, and/or weight based d osing when appropriate to reduce radiation dose to as low as reasonably achievable (ALARA). [facility]: Dose Right [facility]: CareDose [facility]: Dose Right [facility]: Teradose 4D [facility]: Quofore CONTRAST TYPE AND DOSE: contrast/concentration: Isovue 350.00 mg/ml; Total Contrast Delivered: 72.0 ml; Total Saline Delivered: 47.9 ml Contrast bolus optimized for the pulmonary arteries. Not diagnostic for the aorta. RENAL FUNCTION: GFR > 60. RADIATION DOSE: CT Rad equipment meets quality standard of care and radiation dose reduction techniq ues were employed. CTDIvol: 26.4 - 35.7 mGy. DLP: 1263 mGy-cm. . LIMITATIONS: None. FINDINGS: LUNGS AND PLEURA: No masses, infiltrates, or pneumothorax. No pleural effusions or pleura l calcifications. AORTA AND GREAT VESSELS: No aneurysm. Contrast bolus not optimized for the aorta. HEART: No pericardial effusion. No significant coronary artery calcifications. PULMONARY ARTERIES: No emboli visualized in the main pulmonary arteries or the segmental branches. HILAR AND MEDIASTINAL STRUCTURES: No identified masses or abnormal nodes. HARDWARE: None in the chest. UPPER ABDOMEN: No significant findings. Limited exam. THYROID AND OTHER SOFT TISSUES: No masses. No adenopathy. BONES: No acute or significant finding. 3D MIPS: Confirm above findings. OTHER: No other significant finding. IMPRESSION: No pulmonary embolism. No acute pulmonary disease. COMMENT: Quality ID # [id number]: Final reports with documentation of one or more dose reduction techniques (e.g., Automated exposure control, adjustment of the mA and/or kV according to patient size, use of iterative reconstruction technique) TECHNICAL DOCUMENTATION: JOB ID: [id number] [employer]- All Rights Reserved Reading location - IP/workstation name: [email or web address]
[2019-10-10 13:59] LABS: APPEARANCE,URINE SLIGHTLY-CLOUDY; BILIRUBIN,URINE NEGATIVE (NEGATIVE); COLOR,URINE YELLOW; GLUCOSE, URINE NEGATIVE (NEGATIVE); KETONES,URINE TRACE mg/dL (NEGATIVE); LEUKOCYTE ESTERASE,URINE SMALL (NEGATIVE); NITRITE,URINE NEGATIVE (NEGATIVE); PROTEIN,URINE NEGATIVE (NEGATIVE); URINE SPECIFIC GRAVITY 1.029; UROBILINOGEN,URINE NEGATIVE mg/dL (<2.0)
[2019-10-10 14:39] VITALS: BP 131/81
--- NOTE | 2019-10-11 09:27 | EKG REPORT ---
SEVERITY:- NORMAL ECG - SINUS RHYTHM : Confirmed by: Darline Montalvo 11-Oct-2019 09:26:27
== END 2019-10-10 14:45 | disposition home or self-care (01) ==
LOC: ER 11:44
DX: J45.909 Unspecified asthma, uncomplicated (principal); J02.8 Acute pharyngitis due to other specified organisms; B97.89 Other viral agents as the cause of diseases classified elsewhere; R06.02 Shortness of breath; R05 Cough; R68.83 Chills (without fever); D68.51 Activated protein C resistance; Z79.01 Long term (current) use of anticoagulants; Z79.899 Other long term (current) drug therapy; Z79.52 Long term (current) use of systemic steroids; Z86.711 Personal history of pulmonary embolism; Z88.8 Allergy status to other drugs, medicaments and biological substances; Z91.040 Latex allergy status; Z20.828 Contact with and (suspected) exposure to other viral communicable diseases
CPT/HCPCS: 36415; 71275; 80053; 81001; 84703; 85025; 85610; 87040; 87070; 87635; 87804; 87880; 93005; 93010; 99285

== ENCOUNTER → 2019-10-10 | Outpatient (CLI) | payer MEDICAID | LOC: RDC 11:09 | PROVIDERS: ATTEND Nurse Practitioner Family | DX: R06.02 Shortness of breath (principal); J02.9 Acute pharyngitis, unspecified; R05 Cough; J45.909 Unspecified asthma, uncomplicated; R51 Headache; R10.9 Unspecified abdominal pain; K50.90 Crohn's disease, unspecified, without complications; R19.7 Diarrhea, unspecified ==

== ENCOUNTER 2020-07-20 10:13 | Emergency (ER) | payer MEDICAID ==
--- NOTE | 2020-07-20 11:47 | ER Document Report ---
ED GI/ - General Chief Complaint: Vaginal Bleeding Stated Complaint: HEAVY VAGINAL BLEEDING/BLOOD THINNERS IUD FELL OUT Time Seen by Provider: 07/20/20 11:01 Primary Care Provider: [facility] [Provider Group] - Follow up in 3-5 days Notes: Patient is a 35-year-old female presents emergency department with vaginal bleeding. Patient states that 5 days ago she took her IUD out, because she felt the strings of her IUD and they were bothering her. She called the [employer], who states that she was okay to stay home. Patient has factor V deficiency and is currently on Xarelto. TRAVEL OUTSIDE OF THE [place] IN LAST 30 DAYS: No - Related Data Allergies/Adverse Reactions: buspirone [Buspirone] Allergy (Verified 09/02/19 08:57) citalopram hydrobromide [From Celexa] Allergy (Verified 09/02/19 08:57) latex Allergy (Verified 09/02/19 08:57) metoclopramide [From Reglan] Adverse Reaction (Verified 09/02/19 08:57) Past Medical History - Social History Smoking Status: Never Smoker Chew tobacco use (# tins/day): No Frequency of alcohol use: None Drug Abuse: None Family History: Reviewed & Not Pertinent Patient has homicidal ideation: No - Past Medical History Cardiac Medical History: Reports: Hx Pulmonary Embolism Pulmonary Medical History: Reports: Hx Asthma Renal/ Medical History: Denies: Hx Peritoneal Dialysis GI Medical History: Reports: Hx Crohn's Disease, Hx Gastroesophageal Reflux Disease Psychiatric Medical History: Reports: Hx Depression Past Surgical History: Reports: Hx Adenoidectomy, Hx Section, Hx Tonsillectomy - Immunizations Immunizations up to date: Yes Review of Systems - Review of Systems Notes: REVIEW OF SYSTEMS: CONSTITUTIONAL : Denies recent illness. Denies recent unintentional weight loss. Denies fever, chills, or sweats. EENT: Denies eye, ear, throat, or mouth pain, discharge, or symptoms. Denies nasal or sinus congestion. CARDIOVASCULAR: Denies chest pain. RESPIRATORY: Denies shortness of breath, cough, congestion, difficulty breathing, or wheezing. GASTROINTESTINAL: Denies nausea, vomiting, and diarrhea. Denies abdominal pain. Denies constipation. GENITOURINARY: Denies difficulty urinating, burning, blood in urine, urgency or frequency. MUSCULOSKELETAL: Denies neck and back pain. Denies joint pain or swelling. READING INSTRUCTOR: See HPI. SKIN: Denies rash, itchiness, or lesions HEMATOLOGIC : Denies easy bruising or bleeding. LYMPHATIC: Denies swollen, painful, enlarged glands. NEUROLOGICAL: Denies no numbness or tingling denies weakness. Denies headache. Denies altered mental status. Denies alteration in speech. PSYCHIATRIC: Denies stress, anxiety, alteration in sleep patterns, or depressio n. All other systems reviewed and negative. Physical Exam - Vital signs Vitals: Temp Pulse Resp BP Pulse Ox 97.6 F 85 18 133/86 H 97 07/20/20 10:29 07/20/20 10:29 07/20/20 10:29 07/20/20 10:07/20/20 10:29 - Notes Notes: PHYSICAL EXAMINATION: GENERAL: Appears well, healthy, well-nourished, no acute distress. HEAD: Normocephalic, atraumatic. EYES: PERRL, conjunctiva normal, all extraocular movements intact, sclera nonicteric ENT: Moist mucous membranes. NECK: Supple, no noticeable swelling, redness, rash. Normal range of motion. LUNGS: Equal breath sounds bilaterally and clear to auscultation. No wheezes rales or rhonchi. CARDIOVASCULAR: S1-S2, regular rate, regular rhythm. Radial pulses 2+, normal. ABDOMEN: Normoactive bowel sounds. Soft, nontender, no guarding, no rebound tenderness, and no masses palpated. EXTREMITIES: Normal strength and range of motion, no pitting or edema. No cyanosis. NEUROLOGICAL: Moves all extremities upon command. Strength 5/5 in all extremities. PSYCH: Normal mood, normal affect. SKIN: Warm, dry. No rash, lesions, ulcerations noted. Normal skin turgor. READING INSTRUCTOR: Moderate amount of blood noted in vagina. Course - Re-evaluation Re-evalutation: 07/20/20 14:13 Pelvic exam done with JAMISON White at bedside. There is a moderate amount of blood noted. No large amount of blood noted. Transvaginal ultrasound is unremarkable. 07/20/20 15:42 Hematology is unremarkable. Coagulation studies are also unremarkable. Chemistry is normal. At this time, patient is stable for discharge and she will follow-up with [facility]. She is in agreement with this plan. Venous Doppler study is negative. Follow-up precautions were given. Verbal discharge instructions were given to the patient. They verbalized under standing. They are stable for discharge. - Vital Signs Vital signs: Temp Pulse Resp BP Pulse Ox 97.8 F 83 18 122/74 99 07/20/20 17:09 07/20/20 17:09 07/20/20 17:09 07/20/20 17:09 07/20/20 17:09 - Laboratory Results Result Diagrams: 07/20/20 14:00 07/20/20 14:00 Laboratory Results Interpreted: 07/20/20 07/20/20 14:00 14:00 APTT 38.3 H ALT 41 H Critical Laboratory Results Reviewed: No Critical Results - Radiology Results Critical Radiology Results Reviewed: No Critical Results Discharge - Discharge Clinical Impression: Vaginal bleeding, Left leg pain Condition: Stable Disposition: HOME, SELF-CARE Additional Instructions: You were seen today in the emergency department for vaginal bleeding after taking your IUD out. You are also seen for left leg pain. You do not have a blood clot in your left leg. Follow-up with [facility] in regards to your bleeding. Referrals: [facility] [Provider Group] - Follow up in 3-5 days
--- NOTE | 2020-07-20 13:08 | RADIOLOGY REPORT (SQ) ---
EXAM DESCRIPTION: U/S NON OB PEL TV W/DOPPLER IMAGES COMPLETED DATE/TIME: 07/20/2020 11:30 am REASON FOR STUDY: vaginal bleeding, IUD removed 5 days ago. COMPARISON: None. TECHNIQUE: Dynamic and static grayscale images acquired of the pelvis via transvaginal approach and recorded on PACS. Additional selected color Doppler and spectral images recorded. LIMITATIONS: None. FINDINGS: UTERUS: Retroverted. Normal contour. No myometrial mass. Caesarean section scar. ENDOMETRIAL STRIPE: No focal or generalized thickening. No masses. CERVIX: No nabothian cysts. RIGHT OVARY AND DOPPLER: Normal size. Dominant ovarian follicle. Color and spectral Doppler imaging demonstrate normal vascular flow. LEFT OVARY AND DOPPLER: Not visualized. No adnexal mass. No free fluid. FREE FLUID: None noted. OTHER: No other significant finding. MEASUREMENTS: UTERUS: 6.9 x 3.8 x 4.3 cm ENDOMETRIAL STRIPE: 7 mm RIGHT OVARY: 2.0 x 1.4 x 1.4 cm LEFT OVARY: Not visualized IMPRESSION: No sonographic abnormality of the uterus or right ovary. Left ovary is not visualized. TECHNICAL DOCUMENTATION: JOB ID: [id number] [employer]- All Rights Reserved Rev-11/25 Reading location - IP/workstation name: [email or web address]
--- NOTE | 2020-07-20 14:27 | RADIOLOGY REPORT (SQ) ---
EXAM DESCRIPTION: VENOUS UNILATERAL LOWER IMAGES COMPLETED DATE/TIME: 07/20/2020 1:00 pm REASON FOR STUDY: LLE pain COMPARISON: None. TECHNIQUE: Dynamic and static powers scale and color images acquired of the left leg venous system. Se lected spectral images acquired with additional compression and augmentation maneuvers. The contralat eral common femoral vein and saphenofemoral junction were also imaged. Images stored on PACS. LIMITATIONS: None. FINDINGS: COMMON FEMORAL: Normal phasicity, compression and augmentation. No visualized echogenic ma terial on powers scale. No defects on color images. FEMORAL: Normal compression and augmentation. No visualized echogenic material on powers scale. No defe cts on color images. POPLITEAL: Normal compression, augmentation. No visualized echogenic material on powers scale. No defec ts on color images. CALF VESSELS: Normal compression, augmentation. No visualized echogenic material on powers scale. No de fects on color images. GSV and SSV: Normal compression, augmentation. No visualized echogenic material on powers scale. No def ects on color images. ANY DEEP VENOUS INSUFFICIENCY: Not evaluated. ANY EVIDENCE OF POPLITEAL CYST: No. OTHER: No other significant finding. CONTRALATERAL COMMON FEMORAL VEIN AND SAPHENOFEMORAL JUNCTION: Normal phasicity, compression and augmentation. No visualized echogenic material on powers scale. No de fects on color images. IMPRESSION: NO EVIDENCE OF DVT OR SVT IN THE LEFT LEG. TECHNICAL DOCUMENTATION: JOB ID: [id number] 2010 [employer]- All Rights Reserved Reading location - IP/workstation name: [email or web address]
[2020-07-20 14:37] LABS: ALBUMIN 4.5 g/dL (3.5-5.0); ALKALINE PHOSPHATASE 104 U/L (38-126); ANION GAP 8 (5-19); ASPARTATE AMINO TRANSFERASE 32 U/L (14-36); BILIRUBIN,DIRECT 0.2 mg/dL (0.0-0.4); BILIRUBIN,TOTAL 0.5 mg/dL (0.2-1.3); BLOOD UREA NITROGEN 11 mg/dL (7-20); CALCIUM 9.7 mg/dL (8.4-10.2); CARBON DIOXIDE 28 mmol/L (22-30); CHLORIDE 103 mmol/L (98-107); GLUCOSE 77 mg/dL (75-110); POTASSIUM 4.5 mmol/L (3.6-5.0); TOTAL PROTEIN 7.9 g/dL (6.3-8.2)
[2020-07-20 14:39] LABS: ABSOLUTE LYMPHOCYTES (AUTO) 2.4 10^3/uL (0.5-4.7); ABSOLUTE MONOCYTES (AUTO) 0.4 10^3/uL (0.1-1.4); ABSOLUTE NEUT (AUTO) 4.7 10^3/uL (1.7-8.2); BASOPHILS % (AUTO) 0.3 % (0-2); EOSINOPHILS % (AUTO) 0.5 % (0-6); HEMATOCRIT 42.8 % (36.0-47.0); HEMOGLOBIN 14.3 g/dL (12.0-15.5); LYMPHOCYTES % (AUTO) 31.9 % (13-45); MEAN CORPUSCULAR HEMOGLOBIN 28.2 pg (27.0-33.4); MEAN CORPUSCULAR HGB CONC 33.5 g/dL (32.0-36.0); MEAN CORPUSCULAR VOLUME 84 fl (80-97); MONOCYTES % (AUTO) 5.3 % (3-13); PLATELET COUNT 374 10^3/uL (150-450); RED BLOOD COUNT 5.08 10^6/uL (3.72-5.28); RED CELL DISTRIBUTION WIDTH 13.2 % (11.5-14.0); TOTAL CELLS COUNTED % (AUTO) 100 %; WHITE BLOOD COUNT 7.6 10^3/uL (4.0-10.5)
[2020-07-20 14:48] LABS: INTERNATIONAL RATION (INR) 1.04; PROTHROMBIN TIME 13.8 SEC (11.4-15.4)
[2020-07-20 14:49] LABS: PARTIAL THROMBOPLASTIN TIME 38.3 SEC (23.5-35.8)
[2020-07-20 17:10] VITALS: BP 122/74
== END 2020-07-20 17:11 | disposition home or self-care (01) ==
LOC: ER 10:13
DX: N93.9 Abnormal uterine and vaginal bleeding, unspecified (principal); M79.605 Pain in left leg; D68.2 Hereditary deficiency of other clotting factors; Z79.01 Long term (current) use of anticoagulants; J45.909 Unspecified asthma, uncomplicated; Z88.8 Allergy status to other drugs, medicaments and biological substances; Z91.040 Latex allergy status
CPT/HCPCS: 36415; 76830; 80053; 84703; 85025; 85610; 85730; 86850; 86900; 86901; 93971; 93976; 99284

== ENCOUNTER 2020-07-26 07:54 | Emergency (ER) | payer MEDICAID ==
[2020-07-26 10:00] LABS: APPEARANCE,URINE CLOUDY; BILIRUBIN,URINE NEGATIVE (NEGATIVE); COLOR,URINE AMBER; GLUCOSE, URINE NEGATIVE (NEGATIVE); KETONES,URINE TRACE mg/dL (NEGATIVE); LEUKOCYTE ESTERASE,URINE TRACE (NEGATIVE); NITRITE,URINE NEGATIVE (NEGATIVE); PROTEIN,URINE 100 mg/dL (NEGATIVE); URINE SPECIFIC GRAVITY 1.019; UROBILINOGEN,URINE NEGATIVE mg/dL (<2.0)
[2020-07-26] MEDS ORDERED: NORMAL SALINE 1000 ML 1,000 ML IV ONE (11:13)
--- NOTE | 2020-07-26 11:20 | ER Document Report ---
ED General - General Chief Complaint: Flank Pain Stated Complaint: LOW BACK PAIN,NAUSEA,VOMITING Time Seen by Provider: 07/26/20 10:57 TRAVEL OUTSIDE OF THE [place] IN LAST 30 DAYS: No - HPI Notes: Chief complaint: Right upper quadrant abdominal pain History of present illness: 35-year-old female with history of Crohn's disease receiving an unknown biologic agent monthly as infusion therapy presents today for evaluation of right upper quadrant pain and right flank pain with associated nausea. Patient has a history of factor V Leiden deficiency and is on Xarelto. She had an IUD removed 11 days ago because she was having discomfort associated with this. She was subsequently seen here 6 days ago for moderate vaginal bleeding and some pelvic cramping. She had a negative test and normal CBC at that time and pelvic exam was remarkable only for what appeared to be menstrual bleeding. She also had a pelvic ultrasound at that time which was reported as normal. Patient has done reasonably well since then and is having only some mild spotting now. This morning she woke up with discomfort in her right upper quadrant radiating through to her right flank. This was relatively intense for a couple hours and was associated with 2 episodes of vomiting. No fever or chills. Her pain now is only about 2/10 intensity without any specific intervention. She was given some Zofran by [facility] at triage and says she is no longer nauseated. She notes that she passed a kidney stone spontaneously several years ago. She denies any current dysuria. Indicates that she has not had a bowel movement in the last 24 hours. Also says that she is concerned about possibility of cholelithiasis noting that multiple family members have had gallstones although she is never been diagnosed with this condition. Previous surgical procedures have included and tonsillectomy. - Related Data Allergies/Adverse Reactions: buspirone [Buspirone] Allergy (Verified 07/26/20 08:02) citalopram hydrobromide [From Celexa] Allergy (Verified 07/26/20 08:02) latex Allergy (Verified 07/26/20 08:02) metoclopramide [From Reglan] Adverse Reaction (Verified 07/26/20 08:02) Home Medications: adderall, xarelto Past Medical History - General Information source: Patient - Social History Smoking Status: Never Smoker Frequency of alcohol use: None Drug Abuse: None Family History: Reviewed & Not Pertinent - Past Medical History Cardiac Medical History: Reports: Hx Pulmonary Embolism Pulmonary Medical History: Reports: Hx Asthma Endocrine Medical History: Denies: Hx Diabetes Mellitus Type 1, Hx Diabetes Mellitus Type 2 Renal/ Medical History: Reports: Hx Kidney Stones. Denies: Hx Peritoneal Dialysis GI Medical History: Reports: Hx Crohn's Disease, Hx Gastroesophageal Reflux Dise ase Psychiatric Medical History: Reports: Hx Depression Past Surgical History: Reports: Hx Adenoidectomy, Hx Section, Hx Tonsillectomy - Immunizations Immunizations up to date: Yes Review of Systems - Review of Systems Notes: Constitutional: Negative for fever. HENT: Negative for sore throat. Eyes: Negative for visual changes. Cardiovascular: Negative for chest pain. Respiratory: Negative for shortness of breath. Gastrointestinal: As per HPI. Genitourinary: As per HPI. Musculoskeletal: Negative for back pain. Skin: Negative for rash. Neurological: Negative for headaches, weakness or numbness. 10 point ROS negative except as marked above and in HPI. Physical Exam - Vital signs Vitals: Temp Pulse Resp BP Pulse Ox 97.9 F 84 18 135/90 H 100 07/26/20 07:59 07/26/20 07:59 07/26/20 07:59 07/26/20 07:59 07/26/20 07:59 - Notes Notes: GENERAL: Mildly obese female approximately stated age appearing in no acute distress. SKIN: Good turgor no rashes. HEAD: Normocephalic atraumatic. EYES: PERRLA. EOMI. Conjunctivae and sclerae clear. EARS: CANALS AND TMS CLEAR. NOSE: CLEAR. MOUTH: Moist mucosa. Good dentition. No stridor or edema. No drooling. NECK: Supple. No masses or thyromegaly. No adenopathy. Carotids 2+ without bruits. No JVD. BACK: Symmetrical without tenderness. CHEST: Respirations unlabored. Breath sounds clear and symmetrical. HEART: Regular rhythm. No murmur gallop or rub. ABDOMEN: Mildly obese with minimal tenderness on deep palpation right upper quadrant. Soft without masses, organomegaly or rebound. Bowel sounds normally active. No bruits. GENITALIA: Deferred. EXTREMITIES: No edema. No calf tenderness. Cap refill less than 1.5 seconds. Dorsalis pedis and posterior tibial pulses 3+ and symmetrical. NEUROLOGICAL: GCS 15. Alert and oriented x3. Normal gait. Fluent speech. Cranial nerves II through XII intact. Sensorimotor and cerebellar normal. Normal tone. PSYCHIATRIC: Appropriate affect. Course - Re-evaluation Re-evalutation: 07/26/20 14:52 Patient came in with new right upper quadrant abdominal pain radiating to right flank with associated nausea. She was noted to have microscopic hematuria. CT abdomen pelvis obtained demonstrating 4 mm stone right mid ureter with hydronephrosis. Improved with IV analgesics and antiemetics administration of IV normal saline. Appears stable for outpatient follow-up with urology. Findings, clinical impression and plan of treatment have been discussed with patient/family. Understanding of current findings and recommendations has been acknowledged by them and there is agreement regarding disposition and follow-up. - Vital Signs Vital signs: Temp Pulse Resp BP Pulse Ox 97.9 F 84 18 135/90 H 100 07/26/20 07:59 07/26/20 07:59 07/26/20 07:59 07/26/20 07:59 07/26/20 07:59 - Laboratory Results Result Diagrams: 07/26/20 12:29 07/26/20 12:29 Laboratory Results Interpreted: 07/26/20 09:39 Urine Protein 100 H Urine Ketones TRACE H Urine Blood LARGE H Ur Leukocyte Esterase TRACE H Critical Laboratory Results Reviewed: Yes Attending or Supervising Physician who Reviewed Labs: MARIE CALLAHAN - Radiology Results Radiology Results Interpreted: 07/26/20 14:51 Abdomen/Pelvis CT 07/26/20 11:12 IMPRESSION: 4 mm right proximal ureteral stone with mild right hydronephrosis and upper hydroureter Critical Radiology Results Reviewed: Yes Attending or Supervising Physician who Reviewed Radiology: MARIE CALLAHAN Discharge - Discharge Clinical Impression: Ureterolithiasis with renal colic right Condition: Stable Disposition: HOME, SELF-CARE Instructions: Oral Narcotic Medication ([facility]) Additional Instructions: Kidney Stone You are passing or have passed a kidney stone. These stones are usually due to increased calcium or uric acid concentrations in your urine. Stones within the kidney itself are not painful. The pain occurs as the stone leaves the kidney to pass down the long tube, called the ureter, leading to the bladder. If the stone is small, it will usually pass by itself. Most patients can pass the stone at home. You will usually receive medications for pain, nausea or vomiting, and sometimes a medication to assist in passing the kidney stone. However, if the pain is very severe or if vomiting prevents you from taking oral pain medications, you may need to return for further treatment. Drink three or four quarts of fluids per day. You will be given pain medication (if needed) and urine strainers. Strain all your urine to see if the stone passes. If your doctor has asked you to bring the stone in for analysis, return with the stone once it has passed. Return if pain or vomiting become severe, if you develop a high fever, if you are unable to pass your urine, or if other unusual symptoms occur. Return here as needed for new or worsening symptoms: Pain that is worsening or unimproved Uncontrolled vomiting High fever or shaking chills Overall worsening Take prescribed medications as directed. Do not drive or operate machinery while taking narcotic medication. You have been provided a work note for the next 3 days Follow-up with referral urologist as discussed. Return here as needed for new or worsening symptoms: Pain that is worsening or unimproved Uncontrolled vomiting High fever or shaking chills Overall worsening Prescriptions: Tramadol HCl [Ultram 50 mg Tablet] 50 mg PO Q4HP PRN #12 tab PRN Reason: Tamsulosin HCl [Flomax 0.4 mg Cap.sr] 0.4 mg PO DAILY #7 cap.sr.24h Ondansetron [Zofran Odt 4 mg Tablet] 1 - 2 tab PO Q4H PRN #15 tab.rapdis PRN Reason: For Nausea/Vomiting
[2020-07-26 12:57] LABS: ABSOLUTE LYMPHOCYTES (AUTO) 2.3 10^3/uL (0.5-4.7); ABSOLUTE MONOCYTES (AUTO) 0.4 10^3/uL (0.1-1.4); ABSOLUTE NEUT (AUTO) 5.8 10^3/uL (1.7-8.2); BASOPHILS % (AUTO) 0.4 % (0-2); EOSINOPHILS % (AUTO) 0.2 % (0-6); HEMATOCRIT 41.3 % (36.0-47.0); HEMOGLOBIN 14.2 g/dL (12.0-15.5); LYMPHOCYTES % (AUTO) 26.3 % (13-45); MEAN CORPUSCULAR HEMOGLOBIN 28.9 pg (27.0-33.4); MEAN CORPUSCULAR HGB CONC 34.4 g/dL (32.0-36.0); MEAN CORPUSCULAR VOLUME 84 fl (80-97); MONOCYTES % (AUTO) 5.2 % (3-13); PLATELET COUNT 357 10^3/uL (150-450); RED BLOOD COUNT 4.92 10^6/uL (3.72-5.28); RED CELL DISTRIBUTION WIDTH 13.3 % (11.5-14.0); SEGMENTED NEUTROPHILS % (AUTO) 67.9 % (42-78); TOTAL CELLS COUNTED % (AUTO) 100 %; WHITE BLOOD COUNT 8.6 10^3/uL (4.0-10.5)
[2020-07-26 13:20] LABS: ALBUMIN 4.7 g/dL (3.5-5.0); ALKALINE PHOSPHATASE 99 U/L (38-126); ANION GAP 9 (5-19); ASPARTATE AMINO TRANSFERASE 25 U/L (14-36); BILIRUBIN,DIRECT 0.2 mg/dL (0.0-0.4); BILIRUBIN,TOTAL 0.6 mg/dL (0.2-1.3); BLOOD UREA NITROGEN 8 mg/dL (7-20); CALCIUM 9.8 mg/dL (8.4-10.2); CARBON DIOXIDE 28 mmol/L (22-30); CHLORIDE 104 mmol/L (98-107); GLUCOSE 79 mg/dL (75-110); POTASSIUM 4.3 mmol/L (3.6-5.0)
--- NOTE | 2020-07-26 13:45 | RADIOLOGY REPORT (SQ) ---
EXAM DESCRIPTION: CT ABD/PELVIS WITH IV ONLY IMAGES COMPLETED DATE/TIME: 07/26/2020 12:49 pm REASON FOR STUDY: RUQ pain, hx. renal stones and Crohn's dz. COMPARISON: CT abdomen pelvis 09/02/2019 TECHNIQUE: CT scan of the abdomen and pelvis performed using helical scanning technique with dynamic intravenous contrast injection. No oral contrast. Images reviewed with lung, soft tissue, and bone windows. Reconstructed coronal and sagittal MPR images reviewed. Delayed images for evaluation of the urinary system also acquired. All images stored on PACS. All CT scanners at this facility use dose modulation, iterative reconstruction, and/or weight based d osing when appropriate to reduce radiation dose to as low as reasonably achievable (ALARA). [facility]: Dose Right [facility]: CareDose [facility]: Dose Right [facility]: Teradose 4D [facility]: [employer] CONTRAST TYPE AND DOSE: contrast/concentration: Isovue 350.00 mmol/ml; Total Contrast Delivered: 100 .0 ml; Total Saline Delivered: 49.4 ml RENAL FUNCTION: GFR > 60. RADIATION DOSE: CT Rad equipment meets quality standard of care and radiation dose reduction techniq ues were employed. CTDIvol: 18.4 - 21.0 mGy. DLP: 2120 mGy-cm.. LIMITATIONS: None. FINDINGS: A 4 mm proximal right ureteral calculus is present causing mild right hydronephrosis and u pper hydroureter. Stone is at about the level of the right L3 transverse process, best shown on eliazar nal image 41 and axial image 42. Elsewhere in the right kidney, multiple less than 2 mm upper and mid pole stones are present. No oth er right ureteral stones. No right renal cysts or masses. LOWER CHEST: No significant findings. No nodules or infiltrates. LIVER: Normal size. No masses. No dilated ducts. SPLEEN: Normal size. No focal lesions. PANCREAS: No masses. No significant calcifications. No adjacent inflammation or peripancreatic fluid collections. Pancreatic duct not dilated. GALLBLADDER: Gallstones. No inflammatory changes to suggest cholecystitis. ADRENAL GLANDS: No significant masses or asymmetry. RIGHT KIDNEY AND URETER: As above LEFT KIDNEY AND URETER: No solid masses. 8 mm left lower pole intrarenal nonobstructive stone, 760 Hounsfield units. 4 mm left upper pole intrarenal nonobstructive stone. No hydronephrosis or hydro ureter. AORTA AND VESSELS: No aneurysm. No dissection. Renal arteries, SMA, celiac without stenosis. RETROPERITONEUM: No retroperitoneal adenopathy, hemorrhage or masses. BOWEL AND PERITONEAL CAVITY: No masses or inflammatory changes. No free fluid or peritoneal masses. APPENDIX: Normal. PELVIS: No mass. No free fluid. Normal bladder. ABDOMINAL WALL: No masses. No hernias. BONES: No significant or acute findings. OTHER: No other significant finding. IMPRESSION: 4 mm right proximal ureteral stone with mild right hydronephrosis and upper hydroureter TECHNICAL DOCUMENTATION: JOB ID: [id number] Quality ID # [id number]: Final reports with documentation of one or more dose reduction techniques (e.g., Au tomated exposure control, adjustment of the mA and/or kV according to patient size, use of iterative reconstruction technique) 2010 [employer]- All Rights Reserved Reading location - IP/workstation name: [id number]
[2020-07-26] MEDS ORDERED: MORPHINE SULFATE 10 MG/ML INJ IV ONE (13:58)
[2020-07-26 15:23] VITALS: BP 132/86
== END 2020-07-26 15:20 | disposition home or self-care (01) ==
LOC: ER 07:54
DX: N13.2 Hydronephrosis with renal and ureteral calculous obstruction (principal); R31.29 Other microscopic hematuria; K50.90 Crohn's disease, unspecified, without complications; R10.11 Right upper quadrant pain; R10.811 Right upper quadrant abdominal tenderness; R10.9 Unspecified abdominal pain; R11.2 Nausea with vomiting, unspecified; E66.9 Obesity, unspecified; J45.909 Unspecified asthma, uncomplicated; D68.2 Hereditary deficiency of other clotting factors; Z79.01 Long term (current) use of anticoagulants; Z98.890 Other specified postprocedural states; Z79.899 Other long term (current) drug therapy; Z88.8 Allergy status to other drugs, medicaments and biological substances; Z91.040 Latex allergy status
CPT/HCPCS: 99285; 96361; 96374; 36415; 83690; 85025; 80053; 81001; 74177; J2270; J7030